=== PATIENT | male | born 1955 | race Caucasian/White ===

== ENCOUNTER → 2016-06-07 | Outpatient (CLI) | payer OTHER, BC ==
[~2016-06-07] MED LIST: ASCO10003 PO; ASPI81TA28 PO; ATOR-26 PO; CALC-354 PO; CLOP1TAB15 PO; CYAN100020 PO; CYAN1LOZ2 PO; CYM30 PO; DEXL60CA4 PO; FERR325T51 PO; FISHOIL PO; INSDGI SC; ISOS60TA25 PO; MELATAB2 PO; METO-157 PO; METO1TAB69 PO; MULT-1093 PO; MULT-845 PO; NITRSPR6 SL; NRV5 PO; NVLGI SC; NVLGI/PEN SC; PANT40TA PO; RANO1000 PO; TAMS0.4C38 PO; ZNTT/150 PO
[2016-06-08 06:02] LABS: ESTIMATED AVERAGE GLUCOSE 143 mg/dl; HA1C FLAG Normal (Normal)
== END | disposition home or self-care (01) ==
LOC: C.LABBFT 16:53
PROVIDERS: ATTEND Nurse Practitioner Family
DX: E11.21 Type 2 diabetes mellitus with diabetic nephropathy (principal); E78.00 Pure hypercholesterolemia, unspecified; I10 Essential (primary) hypertension

== ENCOUNTER → 2016-09-15 | Outpatient (CLI) | payer OTHER, BC ==
[~2016-09-15] MED LIST changes: +AMLO2.5T PO; +FERR1TAB13 PO; +METO100T44 PO; -METO1TAB69 PO; +NITR0.4S UT; +OMEG10007 PO
[2016-09-16 06:14] LABS: ESTIMATED AVERAGE GLUCOSE 171 mg/dl; HA1C FLAG Normal (Normal)
== END | disposition home or self-care (01) ==
LOC: C.LABBFT 13:39
PROVIDERS: ATTEND Internal Medicine
DX: Z11.59 Encounter for screening for other viral diseases (principal); E11.21 Type 2 diabetes mellitus with diabetic nephropathy

== ENCOUNTER → 2016-10-24 | Day surgery (SDC) | payer OTHER ==
[2016-10-16 12:40] VITALS: Ht 177.8 cm; Wt 86.4 kg
[~2016-10-24] VITALS: Ht 177.8 cm; Wt 86.4 kg
[~2016-10-24] MED LIST changes: -CYAN1LOZ2 PO; -CYM30 PO; +KETAMINE HCL INJ 50 MG/ML 10 ML VIAL ONE; +LIDOCAINE HCL 2% 2 ML VIAL (20MG/ML) ONE; -MELATAB2 PO; -MULT-845 PO; -NVLGI SC; +PROPOFOL IV EMULSION 10 MG/ML 20 ML VIAL IV ONE; +SODIUM CHLORIDE 0.9% 500ML 500 ML IV ONE; -ZNTT/150 PO
--- NOTE | 2016-10-24 11:28 | Endo History and Physical ---
History & Physical Date of Service: October 24, 2016. Chief Complaint: screening,Mendoza's Referring Physician: Dr. Jamar Avery History of Present Illness 60 yo CM who presents for EGD secondary to Mendoza's Esophagus and Screening colonoscopy. Past Medical History Diabetes, Arthritis, Male Genitourinary Prob., Gastrointestinal Disorder, Anxiety, Reflux, Blood Dyscrasias, High Cholesterol, Sleep Apnea, CABG, Heart Disease, CHF, Hypertension, Kidney Disease, Other, Depression, [place] Past Surgical History Hx Cardiac Surgery: Yes (CARDIAC CATH-NO STENTS, CABG-4 VESSELS) Hx Internal Defibrillator: No Hx Pacemaker: No Hx Abdominal Surgery: Yes (PARAESOPHAGEL HERNIA REPAIR; CHIKIS) Hx of Implantable Prosthesis: No Hx Post-Op Nausea and Vomiting: No Hx Cancer Surgery: No Hx Thoracic Surgery: No Hx Orthopedic: Yes (ORIF LEFT FEMURE (HARDWARE); RIGHT ANKLE FUSION) Hx Urinary Tract Surgery: No Family History Esophogeal CA Social History Smoking Status: Former Smoker Hx Substance Use: No Hx Alcohol Use: Yes (RARELY) Allergies Coded Allergies: Glipizide (Verified Allergy, Unknown, Heart Palpatations., 10/16/16) Nabumetone (Verified Allergy, Unknown, "had drug intereaction with this", 10/16/16) Simvastatin (Verified Adverse Reaction, Unknown, weakness, 10/16/16) Current Medications Reported Home Medications Medications Dose Route/Sig Max Daily Dose Days Date Category Dose Instructions Vitamin B12 (Cyanocobalamin) 1,000 Mcg Tab 1 Tab PO QAM 10/16/16 Reported Flomax (Tamsulosin Hcl) 0.4 Mg Cap 0.4 Mg PO QAM 10/16/16 Reported Ranexa (Ranolazine) 1,000 Mg Tab 1 Tab PO BID 30 10/16/16 Reported Protonix (Pantoprazole Sodium) 40 Mg Tab 40 Mg PO QAM 10/16/16 Reported Novolog Flexpen (Insulin Aspart) 100 Units/Ml Inj 10 Units SC WM 10/16/16 Reported TAKES 5 UNITS WITH SNACKS Centrum Silver 50+Men (Multiple Vitamins W/ Minerals) 1 Tab Tab 1 Tab PO QAM 10/16/16 Reported Amlodipine Besylate 5 Mg Tab 2.5 Mg PO HS 30 09/13/15 Rx Iron Supplement (Ferrous Sulfate) 325 Mg Tab 1 Tab PO TID 30 09/05/15 Reported Vitamin C (Ascorbic Acid) 1,000 Mg Tab 1 Dose PO BID 09/05/15 Reported 1 TAB IN AM 2 TABS IN PM Caltrate 600+D (Calcium Carbonate-Cholecalcife) 1 Tab Tab 1 Tab PO QAM 02/25/13 Reported Imdur Ext Rel (Isosorbide Mononitrate) 60 Mg Ertab 120 Mg PO QAM 02/25/13 Reported Nitrolingual 60 [place] (Nitroglycerin) 1 [place] 1 [place] SL PRN 02/25/13 Reported Lantus (Insulin Glargine) Vial 1 Dose SC BID 01/14/13 Reported 15 UNITS IN AM 20 UNITS IN PM Aspirin Ec (Aspirin) 81 Mg Tab 81 Mg PO QAM 01/14/13 Reported Plavix (Clopidogrel Bisulfate) 75 Mg Tab 75 Mg PO QAM 01/14/13 Reported Reglan (Metoclopramide HCl) 10 Mg Tab 10 Mg PO BID 09/19/12 Reported [place]-3 (Fish Oil) Oil 1 Tab PO BID 07/03/11 Reported 1000 MG CAPS. Toprol-Xl (Metoprolol Succinate) 100 Mg Tabcr 100 Mg PO BID 07/03/11 Reported Lipitor (Atorvastatin Calcium) 80 Mg Tab 80 Mg PO QPM 01/27/09 Reported Vital Signs Weight (Kilograms): 86.36 Height (Feet): 5 Height (Inches): 10 Date Time Temp Pulse Resp B/P Pulse Ox O2 Delivery O2 Flow Rate FiO2 10/24/16 11:20 36.7 70 18 158/83 99 Room Air Physical Exam General Appearance: WD/WN, no apparent distress Respiratory/Chest: Auscultation: breath sounds normal Cardiovascular: Heart Auscultation: RRR Abdomen: Bowel Sounds: normal Inspection & Palpation: soft, non-distended, no tenderness, guarding & rebound Assessment and Plan Assessment: 60 yo CM who presents for EGD secondary to Mendoza's Esophagus and Screening colonoscopy. Plan: Proceed with EGD and colonoscopy.
--- NOTE | 2016-10-24 12:40 | GI REPORT ---
Procedure Date: 10/24/2016 11:32 AM Procedure: Upper GI endoscopy Indications: Follow-up of Mendoza's esophagus Medicines: Monitored Anesthesia Care Complications: No immediate complications. Estimated Blood Loss: Estimated blood loss: none. Procedure: Pre-Anesthesia Assessment: - Prior to the procedure, a History and Physical was performed, and patient medications and allergies were reviewed. The patient's tolerance of previous anesthesia was also reviewed. The risks and benefits of the procedure and the sedation options and risks were discussed with the patient. All questions were answered, and informed consent was obtained. Prior Anticoagulants: The patient last took aspirin 1 day and Plavix (clopidogrel) 8 days prior to the procedure. ASA Grade Assessment: III - A patient with severe systemic disease. After reviewing the risks and benefits, the patient was deemed in satisfactory condition to undergo the procedure. After obtaining informed consent, the endoscope was passed under direct vision. Throughout the procedure, the patient's blood pressure, pulse, and oxygen saturations were monitored continuously. The scope was introduced through the mouth, and advanced to the second part of duodenum. The upper GI endoscopy was accomplished without difficulty. The patient tolerated the procedure well. Findings: There were esophageal mucosal changes consistent with short-segment Mendoza's esophagus present at the gastroesophageal junction. The maximum longitudinal extent of these mucosal changes was 1 cm in length. Mucosa was biopsied with a cold forceps for histology. One specimen bottle was sent to pathology. A small hiatus hernia was present. The examined duodenum was normal. Impression: - Esophageal mucosal changes consistent with short-segment Mendoza's esophagus. Biopsied. - Small hiatus hernia. - Normal examined duodenum. Recommendation: - Resume previous diet. - Continue present medications. - Await pathology results. - Return to GI office as previously scheduled. Isidoro Cooper DO 10/24/2016 12:39:51 PM This report has been signed electronically. Note Initiated On: 10/24/2016 11:32 AM I attest to the content of the Intraoperative Record and orders documented therein, exceptions below
--- NOTE | 2016-10-24 12:44 | Discharge Instructions ---
Endoscopy Patient Instructions Date / Procedure(s) Performed October 24, 2016. Colonoscopy, EGD Allergy Information Coded Allergies: Glipizide (Verified Allergy, Unknown, Heart Palpatations., 10/16/16) Nabumetone (Verified Allergy, Unknown, "had drug intereaction with this", 10/16/16) Simvastatin (Verified Adverse Reaction, Unknown, weakness, 10/16/16) Discharge Date / Findings October 24, 2016. EGD: Mendoza's Esophagus s/p biopsies and hiatal hernia Colonoscopy: Poor bowel prep Medication Instructions Stopped Medication(s): stopped Plavix week ago,took ASA 10/23 at 1800 OK to resume all medications today as prescribed Reported Home Medications Medications Dose Route/Sig Max Daily Dose Days Date Category Dose Instructions Vitamin B12 (Cyanocobalamin) 1,000 Mcg Tab 1 Tab PO QAM 10/16/16 Reported Flomax (Tamsulosin Hcl) 0.4 Mg Cap 0.4 Mg PO QAM 10/16/16 Reported Ranexa (Ranolazine) 1,000 Mg Tab 1 Tab PO BID 30 10/16/16 Reported Protonix (Pantoprazole Sodium) 40 Mg Tab 40 Mg PO QAM 10/16/16 Reported Novolog Flexpen (Insulin Aspart) 100 Units/Ml Inj 10 Units SC WM 10/16/16 Reported TAKES 5 UNITS WITH SNACKS Centrum Silver 50+Men (Multiple Vitamins W/ Minerals) 1 Tab Tab 1 Tab PO QAM 10/16/16 Reported Amlodipine Besylate 5 Mg Tab 2.5 Mg PO HS 30 09/13/15 Rx Iron Supplement (Ferrous Sulfate) 325 Mg Tab 1 Tab PO TID 30 09/05/15 Reported Vitamin C (Ascorbic Acid) 1,000 Mg Tab 1 Dose PO BID 09/05/15 Reported 1 TAB IN AM 2 TABS IN PM Caltrate 600+D (Calcium Carbonate-Cholecalcife) 1 Tab Tab 1 Tab PO QAM 02/25/13 Reported Imdur Ext Rel (Isosorbide Mononitrate) 60 Mg Ertab 120 Mg PO QAM 02/25/13 Reported Nitrolingual 60 [place] (Nitroglycerin) 1 [place] 1 [place] SL PRN 02/25/13 Reported Lantus (Insulin Glargine) Vial 1 Dose SC BID 01/14/13 Reported 15 UNITS IN AM 20 UNITS IN PM Aspirin Ec (Aspirin) 81 Mg Tab 81 Mg PO QAM 01/14/13 Reported Plavix (Clopidogrel Bisulfate) 75 Mg Tab 75 Mg PO QAM 01/14/13 Reported Reglan (Metoclopramide HCl) 10 Mg Tab 10 Mg PO BID 09/19/12 Reported [place]-3 (Fish Oil) Oil 1 Tab PO BID 07/03/11 Reported 1000 MG CAPS. Toprol-Xl (Metoprolol Succinate) 100 Mg Tabcr 100 Mg PO BID 07/03/11 Reported Lipitor (Atorvastatin Calcium) 80 Mg Tab 80 Mg PO QPM 01/27/09 Reported Provider Instructions Activity Restrictions - No exercising or heavy lifting for 24 hours. - Do not drink alcohol the day of the procedure. - Do not drive a car or operate machinery until the day after the procedure. - Do not make any important decisions or sign important papers in 24 hours after the procedure. Following Day: - Return to full activity which may include returning to work/school. Diet Start your diet with liquids and light foods (jello, soup, juice, toast). Then eat your usual diet if not nauseated. Treatment For Common After Affects For mild abdominal pain, bloating, or excessive gas: - Rest - Eat lightly - Lie on right side Follow-Up Information Follow-up with Dr. Jamar Avery as scheduled Anesthesia Information What You Should Know You have had a procedure that required some medicine to reduce anxiety and discomfort. This treatment is called moderate sedation. After receiving the treatment, you may be sleepy, but you will be able to breathe on your own. The effects of the treatment may last for several hours. Follow these instructions along with Activity/Diet recommendations noted above: * Do NOT do anything where dizziness or clumsiness would be dangerous. * Rest quietly at home today, then you can be up and about tomorrow. * Have a responsible person stay with you the rest of today. * You may have had an I.V. today. If so, you may take the dressing off later today. Recommendations Call your doctor if: * Trouble breathing * Continuous vomiting for more than 24 hours * Temperature above 101 degrees * Severe abdominal pain or bloating * Pain not relieved by pain medicine ordered * There is increased drainage or redness from any incision * A large amount of rectal bleeding greater than 2-3 tablespoons. (If you had a polyp/s removed or have hemorrhoids, a small amount of blood - from the rectum is to be expected.) * You have any unanswered questions or concerns. IN THE EVENT OF A SERIOUS EMERGENCY, GO TO THE NEAREST EMERGENCY ROOM Your discharge instructions were prepared by provider Isidoro Cooper. Patient Instructions Signature Page Alok Bender Patient (or Guardian) Signature/Date: I have read and understand the instructions given to me by my caregivers. Caregiver/RN/Doctor Signature/Date: The above-named patient and/or guardian has received patient instructions on this date. + Original Patient Signature Page (only) stays with chart. Please make copy for patient.
--- NOTE | 2016-10-24 12:44 | GI REPORT ---
Procedure Date: 10/24/2016 11:59 AM Procedure: Colonoscopy Indications: Screening for colorectal malignant neoplasm Medicines: Monitored Anesthesia Care Complications: No immediate complications. Estimated Blood Loss: Estimated blood loss: none. Procedure: Pre-Anesthesia Assessment: - Prior to the procedure, a History and Physical was performed, and patient medications and allergies were reviewed. The patient's tolerance of previous anesthesia was also reviewed. The risks and benefits of the procedure and the sedation options and risks were discussed with the patient. All questions were answered, and informed consent was obtained. Prior Anticoagulants: The patient last took aspirin 1 day and Plavix (clopidogrel) 8 days prior to the procedure. ASA Grade Assessment: III - A patient with severe systemic disease. After reviewing the risks and benefits, the patient was deemed in satisfactory condition to undergo the procedure. After I obtained informed consent, the scope was passed under direct vision. Throughout the procedure, the patient's blood pressure, pulse, and oxygen saturations were monitored continuously. The scope was introduced through the anus with the intention of advancing to the ileum. The scope was advanced to the ascending colon before the procedure was aborted. Medications were given. The colonoscopy was technically difficult and complex due to inadequate bowel prep. The patient tolerated the procedure well. The quality of the bowel preparation was inadequate. No anatomical landmarks were photographed. Findings: Non-bleeding internal hemorrhoids were found during retroflexion. The hemorrhoids were small. Extensive amounts of semi-solid stool was found in the entire colon, precluding visualization. Impression: - Preparation of the colon was inadequate. - Non-bleeding internal hemorrhoids. - Stool in the entire examined colon. - No specimens collected. Recommendation: - Resume previous diet. - Continue present medications. - Repeat colonoscopy in 6 months because the bowel preparation was poor. - Return to primary care physician as previously scheduled. Isidoro Cooper DO 10/24/2016 12:43:30 PM This report has been signed electronically. Note Initiated On: 10/24/2016 11:59 AM I attest to the content of the Intraoperative Record and orders documented therein, exceptions below
--- NOTE | 2016-10-24 12:49 | Anesthesiology Progress Note ---
Anesthesia Post Op Note Date & Time October 24, 2016 at 12:48 Vital Signs Pain Intensity: 0 Vital Signs Past 12 Hours Date Time Temp Pulse Resp B/P Pulse Ox O2 Delivery O2 Flow Rate FiO2 10/24/16 12:34 66 18 130/69 98 Room Air 10/24/16 12:20 36.7 74 18 127/63 97 Room Air 10/24/16 11:20 36.7 70 18 158/83 99 Room Air Notes Mental Status: alert / awake / arousable, participated in evaluation Pt Amnestic to Procedure: Yes Nausea / Vomiting: adequately controlled Pain: adequately controlled Airway Patency, RR, SpO2: stable & adequate BP & HR: stable & adequate Hydration State: stable & adequate Anesthetic Complications: no major complications apparent
[2016-10-24 12:50] VITALS: BP 140/68; PULSE 66; O2SAT 98
== END | disposition home or self-care (01) ==
LOC: C.GI 10:44
PROVIDERS: ATTEND Internal Medicine
DX: K22.70 Barrett's esophagus without dysplasia (principal); K44.9 Diaphragmatic hernia without obstruction or gangrene; Z12.11 Encounter for screening for malignant neoplasm of colon; K64.8 Other hemorrhoids; E11.9 Type 2 diabetes mellitus without complications; M19.90 Unspecified osteoarthritis, unspecified site; K21.9 Gastro-esophageal reflux disease without esophagitis; E78.00 Pure hypercholesterolemia, unspecified; Z98.61 Coronary angioplasty status; I25.2 Old myocardial infarction; Z79.84 Long term (current) use of oral hypoglycemic drugs; Z79.82 Long term (current) use of aspirin; Z90.49 Acquired absence of other specified parts of digestive tract; Z98.1 Arthrodesis status; G47.33 Obstructive sleep apnea (adult) (pediatric); E78.5 Hyperlipidemia, unspecified; I73.9 Peripheral vascular disease, unspecified; N18.3 Chronic kidney disease, stage 3 (moderate); I12.9 Hypertensive chronic kidney disease with stage 1 through stage 4 chronic kidney disease, or unspecified chronic kidney disease; Z87.891 Personal history of nicotine dependence; E66.9 Obesity, unspecified
CPT/HCPCS: 43239; G0121

== ENCOUNTER → 2016-10-25 | Outpatient (CLI) | payer OTHER ==
[~2016-10-25] MED LIST changes: -DEXL60CA4 PO; -KETAMINE HCL INJ 50 MG/ML 10 ML VIAL ONE; -LIDOCAINE HCL 2% 2 ML VIAL (20MG/ML) ONE; -PROPOFOL IV EMULSION 10 MG/ML 20 ML VIAL IV ONE; -SODIUM CHLORIDE 0.9% 500ML 500 ML IV ONE
[2016-10-25 12:22] LABS: HEMATOCRIT 36.1 % (42-52); MEAN CORPUSCULAR HEMOGLOBIN 28.9 pg (25-34); MEAN CORPUSCULAR HGB CONC 33.2 g/dl (32-36); MEAN PLATELET VOLUME 9.1 fL (7.4-10.4); PLATELET COUNT 151 K/uL (130-400); RED BLOOD COUNT 4.15 M/uL (4.7-6.1); WHITE BLOOD COUNT 6.75 K/uL (4.8-10.8)
[2016-10-25 12:29] LABS: ALT/SGPT 32 U/L (12-78); BLOOD UREA NITROGEN 24 mg/dl (7-18); BUN/CREATININE RATIO 12.4 (10-20); CARBON DIOXIDE 28 mmol/L (21-32); CHLORIDE 104 mmol/L (98-107); GLUCOSE 182 mg/dl (70-99); POTASSIUM 3.7 mmol/L (3.5-5.1); SODIUM 142 mmol/L (136-145)
[2016-10-25 12:31] LABS: ALB/GLOB RATIO 0.9 (0.9-2); ALKALINE PHOSPHATASE 30 U/L (45-117); AST/SGOT 19 U/L (15-37)
[2016-10-25 12:39] LABS: CALCIUM 9.1 mg/dl (8.5-10.1)
== END | disposition home or self-care (01) ==
LOC: C.LABBFT 09:21
PROVIDERS: ATTEND Internal Medicine
DX: N18.3 Chronic kidney disease, stage 3 (moderate) (principal)

== ENCOUNTER → 2016-11-09 | Outpatient (CLI) | payer OTHER | END | disposition home or self-care (01) | LOC: C.PATHSPEC 16:07 | PROVIDERS: ATTEND Dermatology | DX: L82.1 Other seborrheic keratosis (principal); D22.5 Melanocytic nevi of trunk ==

== ENCOUNTER → 2017-04-16 | Day surgery (SDC) | payer OTHER ==
[2017-03-20 15:11] VITALS: Ht 177.8 cm; Wt 95.5 kg
[~2017-04-16] VITALS: Ht 177.8 cm; Wt 95.5 kg
[~2017-04-16] MED LIST changes: +ATROPINE SULFATE 0.1 MG/ML 5ML SYR IV PRN; +EpHEDrine SULFATE INJ 50 MG/ML AMP IV PRN; -FERR325T51 PO; -FISHOIL PO; -NITRSPR6 SL; -NRV5 PO; +PHENYLEPHRINE 100MCG/ML 5ML SYR ONE; +PROPOFOL IV EMULSION 10 MG/ML 20 ML VIAL IV ONE; +SODIUM CHLORIDE 0.9% 500ML 500 ML IV ONE
--- NOTE | 2017-04-16 12:58 | Endo History and Physical ---
History & Physical Date of Service: Apr 16, 2017. Chief Complaint: Screening Referring Physician: Dr. Avery History of Present Illness 61 yo CM who presents for screening colonoscopy. Past Medical History Diabetes, Arthritis, Male Genitourinary Prob., Gastrointestinal Disorder, Anxiety, Reflux, Blood Dyscrasias, High Cholesterol, Sleep Apnea, CABG, Heart Disease, CHF, Hypertension, Kidney Disease, Other, Depression, [place] Past Surgical History Hx Cardiac Surgery: Yes (CARDIAC CATH-NO STENTS, CABG-4 VESSELS) Hx Internal Defibrillator: No Hx Pacemaker: No Hx Abdominal Surgery: Yes (PARAESOPHAGEL HERNIA REPAIR; CHIKIS) Hx of Implantable Prosthesis: No Hx Post-Op Nausea and Vomiting: No Hx Cancer Surgery: No Hx Thoracic Surgery: No Hx Orthopedic: Yes (ORIF LEFT FEMURE (HARDWARE); RIGHT ANKLE FUSION) Hx Urinary Tract Surgery: No Family History Esophogeal [place] Social History Smoking Status: Former Smoker Hx Substance Use: No Hx Alcohol Use: Yes (RARELY) Allergies Coded Allergies: Glipizide (Verified Allergy, Unknown, Heart Palpatations., 03/20/17) Nabumetone (Verified Allergy, Unknown, "had drug intereaction with this", 03/20/17) Simvastatin (Verified Adverse Reaction, Unknown, weakness, 03/20/17) Current Medications Reported Home Medications Medications Dose Route/Sig Max Daily Dose Days Date Category Dose Instructions [place]-3 (Fish Oil) 1 Ea Cap 1 Cap PO BID 03/20/17 Reported Nitrostat (Nitroglycerin) 0.4 Mg Sub 0.4 Mg [place] UD PRN 03/20/17 Reported Lantus (Insulin Glargine) 100 Unit/Ml Inj 20 Units SC BID 03/20/17 Reported Kp Ferrous Sulfate (Ferrous Sulfate) 325 Mg Tab 1 Tab PO UD 03/20/17 Reported 1 TAB QAM 2 TABS QPM Norvasc (Amlodipine Besylate) 2.5 Mg Tab 2.5 Mg PO HS 03/20/17 Reported Vitamin B12 (Cyanocobalamin) 1,000 Mcg Tab 1 Tab PO QAM 10/16/16 Reported Flomax (Tamsulosin Hcl) 0.4 Mg Cap 0.4 Mg PO QAM 10/16/16 Reported Ranexa (Ranolazine) 1,000 Mg Tab 1 Tab PO BID 10/16/16 Reported Protonix (Pantoprazole Sodium) 40 Mg Tab 40 Mg PO QAM 10/16/16 Reported Novolog Flexpen (Insulin Aspart) 100 Units/Ml Inj 10 Units SC WM 10/16/16 Reported TAKES 5 UNITS WITH SNACKS Centrum Silver 50+Men (Multiple Vitamins W/ Minerals) 1 Tab Tab 1 Tab PO QAM 10/16/16 Reported Vitamin C (Ascorbic Acid) 1,000 Mg Tab 1 Dose PO BID 09/05/15 Reported 1 TAB IN AM 2 TABS IN PM Caltrate 600+D (Calcium Carbonate-Cholecalcife) 1 Tab Tab 1 Tab PO QAM 02/25/13 Reported Imdur Ext Rel (Isosorbide Mononitrate) 60 Mg Ertab 120 Mg PO QAM 02/25/13 Reported Aspirin Ec (Aspirin) 81 Mg Tab 81 Mg PO QAM 01/14/13 Reported Plavix (Clopidogrel Bisulfate) 75 Mg Tab 75 Mg PO QAM 01/14/13 Reported Reglan (Metoclopramide HCl) 10 Mg Tab 10 Mg PO BID 09/19/12 Reported Toprol-Xl (Metoprolol Succinate) 100 Mg Tabcr 100 Mg PO BID 07/03/11 Reported Lipitor (Atorvastatin Calcium) 80 Mg Tab 80 Mg PO HS 01/27/09 Reported Vital Signs Weight (Kilograms): 95.45 Height (Feet): 5 Height (Inches): 10 Physical Exam General Appearance: WD/WN, no apparent distress Respiratory/Chest: Auscultation: breath sounds normal Cardiovascular: Heart Auscultation: RRR Abdomen: Bowel Sounds: normal Inspection & Palpation: soft, non-distended, no tenderness, guarding & rebound Assessment and Plan Assessment: 61 yo CM who presents for screening colonoscopy. Plan: Proceed with colonoscopy.
--- NOTE | 2017-04-16 13:54 | Discharge Instructions ---
Endoscopy Patient Instructions Date / Procedure(s) Performed Apr 16, 2017. Colonoscopy Allergy Information Coded Allergies: Glipizide (Verified Allergy, Unknown, Heart Palpatations., 03/20/17) Nabumetone (Verified Allergy, Unknown, "had drug intereaction with this", 03/20/17) Simvastatin (Verified Adverse Reaction, Unknown, weakness, 03/20/17) Discharge Date / Findings Apr 16, 2017. Colon polyps Internal hemorrhoids Medication Instructions Stopped Medication(s): last ASA and Plavix taken yesterday 04/15 at 1800 OK to resume all medications today as prescribed Reported Home Medications Medications Dose Route/Sig Max Daily Dose Days Date Category Dose Instructions [place]-3 (Fish Oil) 1 Ea Cap 1 Cap PO BID 03/20/17 Reported Nitrostat (Nitroglycerin) 0.4 Mg Sub 0.4 Mg [place] UD PRN 03/20/17 Reported Lantus (Insulin Glargine) 100 Unit/Ml Inj 20 Units SC BID 03/20/17 Reported Kp Ferrous Sulfate (Ferrous Sulfate) 325 Mg Tab 1 Tab PO UD 03/20/17 Reported 1 TAB QAM 2 TABS QPM Norvasc (Amlodipine Besylate) 2.5 Mg Tab 2.5 Mg PO HS 03/20/17 Reported Vitamin B12 (Cyanocobalamin) 1,000 Mcg Tab 1 Tab PO QAM 10/16/16 Reported Flomax (Tamsulosin Hcl) 0.4 Mg Cap 0.4 Mg PO QAM 10/16/16 Reported [place] (Ranolazine) 1,000 Mg Tab 1 Tab PO BID 10/16/16 Reported Protonix (Pantoprazole Sodium) 40 Mg Tab 40 Mg PO QAM 10/16/16 Reported Novolog Flexpen (Insulin Aspart) 100 Units/Ml Inj 10 Units SC WM 10/16/16 Reported TAKES 5 UNITS WITH SNACKS Centrum Silver 50+Men (Multiple Vitamins W/ Minerals) 1 Tab Tab 1 Tab PO QAM 10/16/16 Reported Vitamin C (Ascorbic Acid) 1,000 Mg Tab 1 Dose PO BID 09/05/15 Reported 1 TAB IN AM 2 TABS IN PM Caltrate 600+D (Calcium Carbonate-Cholecalcife) 1 Tab Tab 1 Tab PO QAM 02/25/13 Reported Imdur Ext Rel (Isosorbide Mononitrate) 60 Mg Ertab 120 Mg PO QAM 02/25/13 Reported Aspirin Ec (Aspirin) 81 Mg Tab 81 Mg PO QAM 01/14/13 Reported Plavix (Clopidogrel Bisulfate) 75 Mg Tab 75 Mg PO QAM 01/14/13 Reported Reglan (Metoclopramide HCl) 10 Mg Tab 10 Mg PO BID 09/19/12 Reported Toprol-Xl (Metoprolol Succinate) 100 Mg Tabcr 100 Mg PO BID 07/03/11 Reported Lipitor (Atorvastatin Calcium) 80 Mg Tab 80 Mg PO HS 01/27/09 Reported Provider Instructions Activity Restrictions - No exercising or heavy lifting for 24 hours. - Do not drink alcohol the day of the procedure. - Do not drive a car or operate machinery until the day after the procedure. - Do not make any important decisions or sign important papers in 24 hours after the procedure. Following Day: - Return to full activity which may include returning to work/school. Diet Start your diet with liquids and light foods (jello, soup, juice, toast). Then eat your usual diet if not nauseated. Treatment For Common After Affects For mild abdominal pain, bloating, or excessive gas: - Rest - Eat lightly - Lie on right side Follow-Up Information Follow-up with Dr. Jamar Avery as scheduled Anesthesia Information What You Should Know You have had a procedure that required some medicine to reduce anxiety and discomfort. This treatment is called moderate sedation. After receiving the treatment, you may be sleepy, but you will be able to breathe on your own. The effects of the treatment may last for several hours. Follow these instructions along with Activity/Diet recommendations noted above: * Do NOT do anything where dizziness or clumsiness would be dangerous. * Rest quietly at home today, then you can be up and about tomorrow. * Have a responsible person stay with you the rest of today. * You may have had an I.V. today. If so, you may take the dressing off later today. Recommendations Call your doctor if: * Trouble breathing * Continuous vomiting for more than 24 hours * Temperature above 101 degrees * Severe abdominal pain or bloating * Pain not relieved by pain medicine ordered * There is increased drainage or redness from any incision * A large amount of rectal bleeding greater than 2-3 tablespoons. (If you had a polyp/s removed or have hemorrhoids, a small amount of blood - from the rectum is to be expected.) * You have any unanswered questions or concerns. IN THE EVENT OF A SERIOUS EMERGENCY, GO TO THE NEAREST EMERGENCY ROOM Your discharge instructions were prepared by provider Isidoro Cooper. Patient Instructions Signature Page Alok Bender Patient (or Guardian) Signature/Date: I have read and understand the instructions given to me by my caregivers. Caregiver/RN/Doctor Signature/Date: The above-named patient and/or guardian has received patient instructions on this date. + Original Patient Signature Page (only) stays with chart. Please make copy for patient.
--- NOTE | 2017-04-16 13:57 | Anesthesiology Progress Note ---
Anesthesia Post Op Note Date & Time Apr 16, 2017 at 13:56 Vital Signs Pain Intensity: 0 Vital Signs Past 12 Hours Date Time Temp Pulse Resp B/P (MAP) Pulse Ox O2 Delivery O2 Flow Rate FiO2 04/16/17 13:48 61 16 124/59 (80) 100 Room Air 04/16/17 13:10 36.6 60 16 145/64 (91) 99 Room Air Notes Mental Status: alert / awake / arousable, participated in evaluation Pt Amnestic to Procedure: Yes Nausea / Vomiting: adequately controlled Pain: adequately controlled Airway Patency, RR, SpO2: stable & adequate BP & HR: stable & adequate Hydration State: stable & adequate Anesthetic Complications: no major complications apparent
--- NOTE | 2017-04-16 13:59 | GI REPORT ---
Procedure Date: 04/16/2017 1:07 PM Procedure: Colonoscopy Indications: High risk colon cancer surveillance: Personal history of colonic polyps Medicines: Monitored Anesthesia Care Complications: No immediate complications. Estimated Blood Loss: Estimated blood loss: none. Procedure: Pre-Anesthesia Assessment: - Prior to the procedure, a History and Physical was performed, and patient medications and allergies were reviewed. The patient's tolerance of previous anesthesia was also reviewed. The risks and benefits of the procedure and the sedation options and risks were discussed with the patient. All questions were answered, and informed consent was obtained. Prior Anticoagulants: The patient last took aspirin 1 day and Plavix (clopidogrel) 1 day prior to the procedure. ASA Grade Assessment: IV - A patient with severe systemic disease that is a constant threat to life. After reviewing the risks and benefits, the patient was deemed in satisfactory condition to undergo the procedure. After I obtained informed consent, the scope was passed under direct vision. Throughout the procedure, the patient's blood pressure, pulse, and oxygen saturations were monitored continuously. The scope was introduced through the anus and advanced to the terminal ileum. The colonoscopy was performed without difficulty. The patient tolerated the procedure well. The quality of the bowel preparation was fair. The terminal ileum, ileocecal valve, appendiceal orifice, and rectum were photographed. Findings: The perianal and digital rectal examinations were normal. Two sessile polyps were found in the sigmoid colon. The polyps were 4 to 6 mm in size. These polyps were removed with a hot snare. Resection and retrieval were complete. Non-bleeding internal hemorrhoids were found during retroflexion. The hemorrhoids were small. Impression: - Two 4 to 6 mm polyps in the sigmoid colon, removed with a hot snare. Resected and retrieved. - Non-bleeding internal hemorrhoids. Recommendation: - Resume previous diet. - Continue present medications. - Await pathology results. - Repeat colonoscopy for surveillance based on pathology results. - Return to primary care physician as previously scheduled. Isidoro Cooper, 04/16/2017 1:59:02 PM This report has been signed electronically. Note Initiated On: 04/16/2017 1:07 PM I attest to the content of the Intraoperative Record and orders documented therein, exceptions below
[2017-04-16 14:20] VITALS: BP 151/74; PULSE 60; O2SAT 98
== END | disposition home or self-care (01) ==
LOC: C.GI 12:36
PROVIDERS: ATTEND Internal Medicine
DX: Z12.11 Encounter for screening for malignant neoplasm of colon (principal); K63.5 Polyp of colon; K64.8 Other hemorrhoids; E11.9 Type 2 diabetes mellitus without complications; K21.9 Gastro-esophageal reflux disease without esophagitis; Z98.61 Coronary angioplasty status; N18.3 Chronic kidney disease, stage 3 (moderate); I12.9 Hypertensive chronic kidney disease with stage 1 through stage 4 chronic kidney disease, or unspecified chronic kidney disease; G47.30 Sleep apnea, unspecified

== ENCOUNTER → 2017-04-27 | Outpatient (CLI) | payer OTHER ==
[~2017-04-27] MED LIST changes: -ATROPINE SULFATE 0.1 MG/ML 5ML SYR IV PRN; -EpHEDrine SULFATE INJ 50 MG/ML AMP IV PRN; -PHENYLEPHRINE 100MCG/ML 5ML SYR ONE; -PROPOFOL IV EMULSION 10 MG/ML 20 ML VIAL IV ONE; -SODIUM CHLORIDE 0.9% 500ML 500 ML IV ONE
[2017-04-27 17:08] LABS: BASO % 0.4 %; BASO ABS # 0.03 K/uL (0-0.2); COMPLETE YES; EOS % 1.5 %; IG% 1.4 %; LYMPH % 22.4 %; LYMPH ABS # 1.78 K/uL (1.2-3.4); MEAN CORPUSCULAR HGB CONC 33.7 g/dl (32-36); MEAN PLATELET VOLUME 9.7 fL (7.4-10.4); MONO % 8.9 %; NEUT % 65.4 %; PLATELET COUNT 137 K/uL (130-400); RED BLOOD COUNT 4.27 M/uL (4.7-6.1); WHITE BLOOD COUNT 7.94 K/uL (4.8-10.8)
[2017-04-27 17:23] LABS: ALT/SGPT 48 U/L (12-78); AST/SGOT 19 U/L (15-37); BLOOD UREA NITROGEN 39 mg/dl (7-18); BUN/CREATININE RATIO 17.6 (10-20); CARBON DIOXIDE 23 mmol/L (21-32); CHLORIDE 101 mmol/L (98-107); GLUCOSE 237 mg/dl (70-99); POTASSIUM 3.7 mmol/L (3.5-5.1); SODIUM 136 mmol/L (136-145)
[2017-04-27 17:29] LABS: ALKALINE PHOSPHATASE 26 U/L (45-117); CHOLESTEROL 72 mg/dl (0-200); CHOLESTEROL/HDL RATIO 1.8; HDL CHOLESTEROL 40 mg/dl; LDL CHOLESTEROL CALCULATED 2 mg/dl; PROSTATE SPECIFIC ANTIGEN 0.468 ng/ml (0.000-4.000); TRIGLYCERIDES 150 mg/dl (0-150); VERY LOW DENSITY LIPOPROT CALC 30 mg/dl
[2017-04-28 06:53] LABS: ESTIMATED AVERAGE GLUCOSE 160 mg/dl; HA1C FLAG Normal (Normal)
== END | disposition home or self-care (01) ==
LOC: C.LABBFT 13:28
PROVIDERS: ATTEND Nurse Practitioner Family
DX: E11.21 Type 2 diabetes mellitus with diabetic nephropathy (principal); I25.10 Atherosclerotic heart disease of native coronary artery without angina pectoris; N18.3 Chronic kidney disease, stage 3 (moderate); Z12.5 Encounter for screening for malignant neoplasm of prostate

== ENCOUNTER → 2018-01-17 | Outpatient (CLI) | payer OTHER ==
--- NOTE | 2018-01-17 09:23 | DIAGNOSTIC IMAGING REPORT ---
RENAL ULTRASOUND CLINICAL HISTORY: Hypercholesterolemia. COMPARISON STUDY: Renal ultrasound February 21, 2013. TECHNIQUE: Sonography of the kidneys and the urinary bladder was performed. FINDINGS: There is no hydronephrosis. The right kidney measures 10.2 cm and the left measures 10.6 cm. No renal mass or calculus is identified by sonography. There is moderate renal cortical thinning. Both ureteral jets were identified. Evaluation is mildly compromised due to suboptimal penetration. IMPRESSION: 1. No hydronephrosis. 2. Moderate bilateral renal cortical thinning. Electronically signed by: Efren Moran M.D. 01/17/2018 9:21 AM Dictated Date/Time: 01/17/2018 9:20 AM
--- NOTE | 2018-01-17 09:48 | DIAGNOSTIC IMAGING REPORT ---
DUPLEX RENAL ARTERY HISTORY: 62 years-old Male E78.00 [id number] screening study for renal arterial stenosis COMPARISON: Renal ultrasound of same day TECHNIQUE: Multiple real-time sonographic images of the bilateral renal vascular structures were obtained assessing grayscale appearance, color and spectral flow FINDINGS: The right renal artery peak systolic velocity measures up to 91 cm/s. Resistive index measures up to 0.80. Patent renal vein. Peak systolic velocity within the aorta measures up to 105 cm/s with normal plug flow. Left renal artery peak systolic velocities measuring up to 81 cm/s with resistive index of 0.78. Patent left renal vein. IMPRESSION: No sonographic evidence of renal arterial stenosis. The above report was generated using voice recognition software. It may contain grammatical, syntax or spelling errors. Electronically signed by: Daniel Dos Santos M.D. 01/17/2018 9:47 AM Dictated Date/Time: 01/17/2018 9:44 AM
== END | disposition home or self-care (01) ==
LOC: C.ULTR 08:27
PROVIDERS: ATTEND Internal Medicine
DX: E78.00 Pure hypercholesterolemia, unspecified (principal); N28.89 Other specified disorders of kidney and ureter

== ENCOUNTER 2019-06-03 15:04 | Inpatient (IN) ==
[2019-06-03 17:32] LABS: Basophils # (auto) 0.01 K/uL (0-0.2); Basophils % (auto) 0.1 %; Eosinophils # (auto) 0.04 K/uL (0-0.5); Eosinophils % (auto) 0.5 %; Hematocrit (blood only) 35.7 % (42-52); Hemoglobin 12.3 g/dL (14.0-18.0); Immature Granulocytes # (auto) 0.12 K/uL (0.00-0.02); Immature Granulocytes % (auto) 1.5 %; Lymphocytes # (auto) 1.32 K/uL (1.2-3.4); Mean Corpuscular Hgb Conc 34.5 g/dL (32-36); Mean Corpuscular Volume 89.9 fL (80-100); Monocytes # (auto) 0.96 K/uL (0.11-0.59); Monocytes % (auto) 11.6 %; Neutrophils % (auto) 70.3 %; Platelet Count 176 K/uL (130-400); RDW Coefficient of Variation 12.5 % (11.5-14.5); RDW Standard Deviation 40.4 fL (36.4-46.3); Red Blood Count 3.97 M/uL (4.7-6.1); White Blood Count 8.25 K/uL (4.8-10.8)
[2019-06-03] MEDS ORDERED: NITROGLYCERIN SL 0.4 MG/TAB TAB SL PRN ×2 (17:38→22:51)
[2019-06-03] MEDS ORDERED: SODIUM CHLORIDE 0.9% 250 ML IV PRN (17:43)
[2019-06-03 17:46] LABS: Partial Thromboplastin Ratio 0.7; Prothrombin Time 10.7 Seconds (9.0-12.0)
[2019-06-03 17:50] LABS: Albumin Level 2.9 gm/dl (3.4-5.0); BUN Creatinine Ratio 11.2 (10-20); Calcium 9.4 mg/dl (8.5-10.1); Creatinine Clr Calc Pharmacy 44.2 ml/min; Est GFR (African American) 41.7; Potassium 3.6 mmol/L (3.5-5.1)
[2019-06-03 17:52] LABS: Albumin Globulin Ratio 0.7 (0.9-2); Bilirubin,Total 1.4 mg/dl (0.2-1); Globulin 4.2 gm/dl (2.5-4.0); Total Protein 7.1 gm/dl (6.4-8.2)
--- NOTE | 2019-06-03 18:42 | CT Scan Report ---
CT abd pelvis wo con CT DOSE: 557.33 mGy.cm HISTORY: Nausea. Vomiting. vomiting blood TECHNIQUE: Multiaxial CT images of the abdomen and pelvis were performed without contrast. A dose lo wering technique was utilized adhering to the principles of ALARA. COMPARISON STUDY: 08/08/2006 FINDINGS: Lung bases are clear. Prior cholecystectomy. Fatty replacement of the pancreas. Liver splee n and kidneys are unremarkable. No evidence for hydronephrosis. Nonobstructive bowel pattern. Normal appendix. IMPRESSION: No significant abnormality identified within the abdomen or pelvis. Prior cholecystectomy. Small hiat al hernia. ACT 112: Negative or not required by law. The above report was generated using voice recognition software. It may contain grammatical, syntax or spelling errors. Electronically signed by: Karthik Smith M.D. 06/03/2019 6:41 PM
--- NOTE | 2019-06-03 19:11 | XRay Report ---
XR chest 1V portable CLINICAL HISTORY: stemi dyspnea COMPARISON STUDY: 08/17/2018 FINDINGS: Mild cardiac enlargement. Findings of developing pulmonary edema. Diaphragms are smooth. IMPRESSION: Developing pulmonary edema ACT 112: Negative or not required by law. The above report was generated using voice recognition software. It may contain grammatical, syntax or spelling errors. Electronically signed by: Karthik Smith M.D. 06/03/2019 7:09 PM
[2019-06-03] MEDS ORDERED: METOPROLOL TARTRATE 1 MG/ML VIAL IV STA ×2 (19:17→20:38)
[2019-06-03] MEDS ORDERED: FUROSEMIDE 40 MG/4 ML VIAL IV STA (19:42)
[2019-06-03] MEDS ORDERED: NITROGLYCERIN 2% OINTMENT 30GM TUBE EXT SCH ×2 (19:45→20:45)
--- NOTE | 2019-06-03 19:48 | History & Physical Report ---
Date of Service June 03, 2019 Assessment & Plan (1) Acute GI bleeding: Alok is a 63 y/o M with a PMH of HTN, hypercholesterolemia, type II DM, CAD s/p CABG, MIx5, angina pectoris, ischemic cardiomyopathy, systolic CHF, sleep apnea, Parkinson's disease, acid reflux, Mendoza's esophagus, iron deficiency anemia, CKD stage III, gastroparesis, BPH, and depression who presents to hematemesis. Spouse notes onset of vomiting this AM x 2 episodes that was very dark and sticky with concern for GI bleed. He was Hemoccult positive here in ED. While in ED, he had central chest pain x 1 episode that lasted for several minutes and was resolved with Nitro paste. He had some ECG changes with some ST Depression that resolved with Nitro Paste on repeat ECG. Acute GI Bleed - Protonix started in the ED and will continue - Will hold ASA and Plavix - GI Consult placed; Follows with GI Dr. Cooper as outpatient - Hgb currently 12.3, no indication for transfusion, no active signs of bleeding, transfusion threshold 8.0 in a patient with extensive CAD - NPO - H&H q6Hr scheduled Pulmonary Edema - Developing Pulmonary edema seen on CXR in ED, in setting of Chronic Systolic CHF - Lasix 40mg IV x1 given in ED - Monitor I&Os - Will hold further Lasix until re-evaluation by hospital team in AM as with GI bleed do not want to over diuresis and tank blood pressure CAD/Chest Pain/ECG Changes - Will hold all oral meds with exception of his Sinemet for his Parkinson's - Cardiology consult placed - Unable to actively anti-coagulate because of presumed upper GI bleed - Had episode of chest pain with ECG changes concerning for ischemia that resolved in ED with Nitro Paste. - Lopressor 5mg IV q4h ordered, hold for Systolic BP <120, HR <60 - Currently Pulse in 90s and BP 160s/90s - IVF @ 140mL/hr to maintain hemodynamics since NPO and receiving Lasix - Continue with Nitropaste scheduled and NTG SL PRN - ECGs on demand for chest pain - Trending Trops, here in ED 0.036 but might be too acute to show changes as chest pain happened while in ED Chronic Systolic CHF - Chronic Systolic CHF with resolved ischemic cardiomyopathy with EF previously 30-40%, most recently 55-60% August 2015. CKD - Follow w/Dr. Melara - Lab value in ED appears at his baseline 1.91 Gastroparesis - Zofran 4mg IV q6H PRN for nausea Parkinson's - Will continue with oral Sinemet as we do not have IV option Type 2 Diabetes Insulin Dependent - Since NPO will hold his home long acting insulin - Sliding scale ordered Code: Full FENGI: Admit to PCU/Tele, NS @ 140 ml/hr, NPO DVT ppx: SCDs (2) Acid reflux disease: (3) Barretts esophagus: (4) Benign prostate hyperplasia: (5) Chronic kidney disease: (6) Chronic systolic congestive heart failure: (7) S/P coronary artery bypass graft x 4: (8) Coronary artery disease: (9) Gastroparesis: (10) Parkinsons disease: (11) Type 2 diabetes mellitus with insulin therapy: History of Present Illness Chief Complaint: Hematemesis Primary Care Provider: Jamar Avery MD Alok is a 63 y/o M with a PMH of HTN, hypercholesterolemia, type II DM, CAD s/p CABG, MIx5, angina pectoris, ischemic cardiomyopathy, systolic CHF, sleep apnea, Parkinson's disease, acid reflux, Mendoza's esophagus, iron deficiency anemia, CKD stage III, gastroparesis, BPH, and depression who presents to hematemesis. Spouse notes onset of vomiting this AM x 2 episodes that was very dark and sticky with concern for GI bleed. He notes he has had intermittent nausea and vomiting since . He denies prior history of GI bleed. He notes he is on ASA and plavix. He denies any black/bloody stools, but was Hemoccult positive here in ED. While in ED, he had central chest pain x 1 episode that lasted for several minutes and was resolved with Nitro paste. He notes that pain was sharp and that his left arm "felt funny." He denies any shortness of breath. He notes still feeling Nauseous. His last meal was last night dinner he had chicken planks and curly fries. He notes he had diarrhea yesterday but no BM today. He denies abdominal pain currently but notes feeling heartburn earlier. He states he did take his medications today including his aspirin. He states he also took his long acting insulin today as well. No recent steroid use or other NSAIDs. Allergies Allergy/AdvReac Type Severity Reaction Status Date / Time glipizide Allergy Unknown Heart Verified 06/03/19 14:05 Palpatations. nabumetone Allergy Unknown "had drug Verified 06/03/19 14:05 intereaction with this" simvastatin AdvReac Unknown weakness Verified 06/03/19 14:05 Home Medications Home Medications Medication Instructions Recorded Confirmed Type Centrum Silver Men 1 tab PO QAM 08/17/18 06/03/19 History ascorbic acid (vitamin C) [Vitamin 500 mg PO TID 08/17/18 06/03/19 History C] aspirin 81 mg PO QAM 08/17/18 06/03/19 History calcium carbonate-vitamin D3 1 tab PO QAM 08/17/18 06/03/19 History [Calcium 600 + D(3)] clopidogrel 75 mg PO QAM 08/17/18 06/03/19 History cyanocobalamin (vitamin B-12) 1,000 mcg PO QAM 08/17/18 06/03/19 History [Vitamin B-12] ferrous sulfate 325 mg PO TIDM 08/17/18 06/03/19 History insulin aspart U-100 [Novolog See Rx Instructions .ROUTE .COMPLEX 08/17/18 06/03/19 History Flexpen U-100 Insulin] omega [id number] oil [Fish Oil] 1 cap PO BID 08/17/18 06/03/19 History ranolazine 1,000 mg 1,000 mg PO Q12H #180 tab 01/13/19 06/03/19 Rx tablet,extended release,12 hr blood sugar diagnostic #10 ea 01/22/19 06/03/19 History pen needle, diabetic 30 gauge x #1 01/22/19 06/03/19 History 1/3" Lantus Solostar U-100 Insulin 100 40 units SUBCUT DAILY #15 ml NS 01/23/19 06/03/19 Rx unit/mL (3 mL) subcutaneous pen nitroglycerin 0.4 mg sublingual 0.4 mg SUBLINGUAL DIRECTED PRN 02/18/19 06/03/19 Rx tablet #20 tab diltiazem HCl 120 mg 240 mg PO DAILY #180 cap 02/20/19 06/03/19 Rx capsule,extended release 24 hr carbidopa 25 mg-levodopa 100 mg 1 tab PO TID 90 Days #270 tab 10/15/19 01/07/20 Rx tablet metoprolol succinate 100 mg 100 mg PO BID #180 tab 03/12/19 06/03/19 Rx tablet,extended release 24 hr atorvastatin 80 mg tablet 80 mg PO HS #90 tab 05/08/19 06/03/19 Rx isosorbide mononitrate 120 mg PO QAM 06/03/19 06/03/19 History pantoprazole 40 mg PO QAM 06/03/19 06/03/19 History tamsulosin 0.4 mg capsule 0.4 mg PO DAILY #90 cap 06/04/19 Rx metoclopramide HCl 5 mg PO TID #90 tab 06/05/19 Rx Past Med/Surg History Medical History Acid reflux disease (Chronic) Arteriosclerotic vascular disease (Acute 07/04/11) Barretts esophagus (Chronic) Benign prostate hyperplasia (Chronic) Cholelithiasis (Acute 07/21/13) Chronic kidney disease (Chronic) Chronic systolic congestive heart failure (Chronic) Complex sleep apnea syndrome (Chronic) Coronary artery disease (Chronic 07/04/11) Depression (Chronic) Diabetes (Chronic) Diabetes Diverticulosis (Chronic) Dysphagia (Chronic) Dyspnea and respiratory abnormalities (Acute) Fatigue (Chronic) Gastroparesis (Chronic 12/16/12) Health care maintenance (Chronic) Heart attack Hiatal hernia (Chronic) Hyperlipidemia (Chronic 07/04/11) Hypertension Hypertension (Chronic) Ischemic cardiomyopathy (Chronic) NSTEMI (non-ST elevated myocardial infarction) (Acute) Parkinson disease (Chronic) Parkinson disease Parkinsons disease (Chronic) Peripheral vascular disease (Chronic 07/04/11) Seborrheic keratosis (Chronic) Type 2 diabetes mellitus with insulin therapy (Chronic) Xerosis of skin (Acute) Surgical History Hx of cholecystectomy S/P CABG (coronary artery bypass graft) S/P CABG (coronary artery bypass graft) (Chronic) S/P coronary artery bypass graft x 4 (Chronic 07/04/11) Family History Mother Coronary heart disease Father Coronary heart disease Other Diabetes No significant family history Social History Preferred Language: Dominican Communication Ability: Effective Lace Stripper Required: No Beliefs That Will Affect Care: None marital status: Current Living Situation: Spouse Feels Safe at Home: Yes Smoking Status: Never smoker Hx Alcohol Use: Yes Hx Substance Use: No Childhood Exposure to Second-Hand Smoke: No caffeine: No Seatbelt Use: always Review of Systems Review of Systems: All systems reviewed & are unremarkable except as noted in HPI & below Constitutional: no fever, no chills and no body aches Eyes: no diplopia and no eye pain Ear, Nose, Mouth, Throat: no nasal congestion, no epistaxis and no sinus pain/pressure Respiratory: no cough and no dyspnea Cardiovascular: + chest pain; no dyspnea on exertion Gastrointestinal: + nausea, + vomiting and + coffee ground emesis; no abdominal pain Genitourinary: no dysuria and no difficulty urinating Musculoskeletal: no back pain and no neck pain Integumentary: no rash and no new lesions Neurologic: no headache(s) and no confusion Physical Exam Constitutional: WD/WN, vitals as above + ill appearing, cooperative and comfortable Eyes: PERRL, conjunctivae normal, anicteric sclerae ENMT: external ear and nose normal, oropharynx normal Neck: normal visual inspection and trachea midline Respiratory: normal respiratory effort; no respiratory distress and does not use accessory muscles Auscultation: + crackles (bases bilaterally at posterior bases) Cardiovascular: Rate/Rhythm: regular rate and regular rhythm Heart Sounds: + gallop (S3) Extremities: no pedal edema Gastrointestinal (Abdomen): Inspection/Auscultation: normal bowel sounds Percussion/Palpation: abdomen nontender, no guarding and abdomen not rigid Musculoskeletal: Head/Neck/Chest: normocephalic and head atraumatic Skin: no rashes, warm and dry Neurologic: moves all extremities and awake Psychiatric: Orientation: alert and oriented x 3 Affect: + flat affect Results & Data Vital Signs (Past 12 Hours) Vital Signs Temp Pulse Pulse Resp BP BP Pulse Ox 06/03/19 19:38 37.3 C 91 H 16 162/99 H 93 06/03/19 19:37 37.3 C 95 H 16 162/99 H 93 06/03/19 19:30 91 H 162/99 H 01/07/20 18:59 93 H 18 97 06/03/19 16:35 70 18 177/80 H 96 06/03/19 15:29 36.8 C 89 20 118/72 96 Code Status & VTE Plan Code Status Full Code VTE Prophylaxis Plan VTE Prophylaxis will be ordered: Yes Reason for no VTE drug order: Contraindicated (GI bleed) Supervising Physician Co-Signing Physician Notes Attending addendum: I have physically seen this patient, have supervised the medical residents activities, and agree with the H&P unless as otherwise noted. Assessment and Plan: Acute upper GI bleed- Admit to monitored bed. Hold aspirin and Plavix. Protonix drip H&H every 6 hours. 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 Nitropaste 1 inch to anterior chest wall every 6 hours. Lopressor 5 mg IV every 4 hours with hold parameters. Troponin 0.069. Consult cardiology. Remainder orders and notations as noted. Resident Activity Tracking Resident Involvement: Resident Care Provided Care Provided: Adult Hospital Medicine
--- NOTE | 2019-06-03 20:33 | Emergency Department Note ---
Entered by Cary Herrera acting as a scribe for Tian Li DO History of Present Illness General Chief complaint: GI Assessment Stated complaint: VOMITING, POSSIBLE BLOOD Source: patient History of Present Illness Provider complaint: vomiting Onset (ago): day(s) 1 Location: abdomen Pain Consistency: + intermittent Maximum Pain Intensity: 0 Quality: + other (vomiting) Associated symptoms: + other (Negative dysuria; Negative dark tarry stools; Negative abdominal pain; ); no chest pain and no shortness of breath The patient, who is a 63 year old male with a medical history of chronic kidney disease, hypertension, gastroparesis, and Parkinson's disease, presents to the Emergency Room with complaints of vomiting that occurred today The patient explains that for a week this problem resolved however today he has experienced another episode of vomiting. The patient's expresses that the patient had one vomiting episode that resulted in very dark almost blood like stool. The patient denies dysuria, abdominal pain, chest pain, shortness of breath, or dark tarry stools. The patient denies the use of alcohol consumption or steroids. The patient denies a history of gastrointestinal bleeding. The patient states that he has had a cholecystectomy. The patient's reports a history of esophageal cancer. The patient informs that he is currently taking Plavix and Aspirin. Home Medications Home Medications Medication Instructions Recorded Confirmed Type ascorbic acid (vitamin C) [Vitamin 500 mg PO TID 08/17/18 06/03/19 History C] aspirin 81 mg PO QAM 08/17/18 06/03/19 History calcium carbonate-vitamin D3 1 tab PO QAM 08/17/18 06/03/19 History [Calcium 600 + D(3)] clopidogrel 75 mg PO QAM 08/17/18 06/03/19 History cyanocobalamin (vitamin B-12) 1,000 mcg PO QAM 08/17/18 06/03/19 History [Vitamin B-12] ferrous sulfate 325 mg PO TIDM 08/17/18 06/03/19 History insulin aspart U-100 [Novolog See Rx Instructions .ROUTE .COMPLEX 08/17/18 06/03/19 History Flexpen U-100 Insulin] tnenowqp-dcy-GM-lycopen-lutein 1 tab PO QAM 08/17/18 06/03/19 History [Centrum Silver Men] omega 2-zps-lal-fish oil [Fish Oil] 1 cap PO BID 08/17/18 06/03/19 History ranolazine 1,000 mg 1,000 mg PO Q12H #180 tab 01/13/19 06/03/19 Rx tablet,extended release,12 hr blood sugar diagnostic #10 ea 01/22/19 06/03/19 History pen needle, diabetic 30 gauge x #1 01/22/19 06/03/19 History 1/3" Lantus Solostar U-100 Insulin 100 40 units SUBCUT DAILY #15 ml NS 01/23/19 06/03/19 Rx unit/mL (3 mL) subcutaneous pen nitroglycerin 0.4 mg sublingual 0.4 mg SUBLINGUAL DIRECTED PRN 02/18/19 06/03/19 Rx tablet #20 tab diltiazem HCl 120 mg 240 mg PO DAILY #180 cap 02/20/19 06/03/19 Rx capsule,extended release 24 hr carbidopa 25 mg-levodopa 100 mg 1 tab PO TID 90 Days #270 tab 03/11/19 06/03/19 Rx tablet metoprolol succinate 100 mg 100 mg PO BID #180 tab 03/12/19 06/03/19 Rx tablet,extended release 24 hr metoclopramide HCl 10 mg tablet 10 mg PO BID #180 tab 04/29/19 06/03/19 Rx atorvastatin 80 mg tablet 80 mg PO HS #90 tab 05/08/19 06/03/19 Rx isosorbide mononitrate 120 mg PO QAM 06/03/19 06/03/19 History pantoprazole 40 mg PO QAM 06/03/19 06/03/19 History tamsulosin 0.4 mg capsule 0.4 mg PO DAILY #90 cap 06/04/19 Rx Allergies Allergy/AdvReac Type Severity Reaction Status Date / Time glipizide Allergy Unknown Heart Verified 06/03/19 14:05 Palpatations. nabumetone Allergy Unknown "had drug Verified 06/03/19 14:05 intereaction with this" simvastatin AdvReac Unknown weakness Verified 06/03/19 14:05 Past Med/Surg History Medical History Acid reflux disease (Chronic) Arteriosclerotic vascular disease (Acute 07/04/11) Barretts esophagus (Chronic) Benign prostate hyperplasia (Chronic) Cholelithiasis (Acute 07/21/13) Chronic kidney disease (Chronic) Chronic systolic congestive heart failure (Chronic) Complex sleep apnea syndrome (Chronic) Coronary artery disease (Chronic 07/04/11) Depression (Chronic) Diabetes (Chronic) Diabetes Diverticulosis (Chronic) Dysphagia (Chronic) Dyspnea and respiratory abnormalities (Acute) Fatigue (Chronic) Gastroparesis (Chronic 12/16/12) Health care maintenance (Chronic) Heart attack Hiatal hernia (Chronic) Hyperlipidemia (Chronic 07/04/11) Hypertension Hypertension (Chronic) Ischemic cardiomyopathy (Chronic) NSTEMI (non-ST elevated myocardial infarction) (Acute) Parkinson disease (Chronic) Parkinson disease Parkinsons disease (Chronic) Peripheral vascular disease (Chronic 07/04/11) Seborrheic keratosis (Chronic) Type 2 diabetes mellitus with insulin therapy (Chronic) Xerosis of skin (Acute) Surgical History Hx of cholecystectomy S/P CABG (coronary artery bypass graft) S/P CABG (coronary artery bypass graft) (Chronic) S/P coronary artery bypass graft x 4 (Chronic 07/04/11) Family History Mother Coronary heart disease Father Coronary heart disease Other Diabetes No significant family history Social History Preferred Language: Croatian Communication Ability: Effective Door Hanger Required: No Beliefs That Will Affect Care: None marital status: Current Living Situation: Spouse Other Information That Helps Us Care for You: No Feels Safe at Home: Yes Safety Concerns: Feels Safe At This Time Smoking Status: Never smoker Hx Alcohol Use: Yes Hx Substance Use: No Childhood Exposure to Second-Hand Smoke: No caffeine: No Seatbelt Use: always Review of Systems See HPI for pertinent positives & negatives. and A total of 10 systems reviewed and were otherwise negative Physical Exam Vital Signs Vital Signs - 24 hr 06/03/19 15:29 06/03/19 16:35 06/03/19 18:59 Temperature 36.8 C Temperature Source Oral Pulse Rate 89 Pulse Rate [Apical] 70 93 H Respiratory Rate 20 18 18 Blood Pressure 118/72 Blood Pressure [Left Arm] 177/80 H Blood Pressure Mean 87 Blood Pressure Mean [Left Arm] 112 Blood Pressure Position Sitting Pulse Oximetry 96 96 97 Oxygen Delivery Method Room Air Room Air Room Air Sepsis New/Unexplained Change in Mental Status No Sepsis Action Taken by Nursing No Action Required 06/03/19 19:30 06/03/19 19:37 06/03/19 19:38 Temperature 37.3 C 37.3 C Temperature Source Oral Oral Pulse Rate 91 H 91 H Pulse Rate [Apical] 95 H Respiratory Rate 16 16 Blood Pressure 162/99 H 162/99 H Blood Pressure [Left Arm] 162/99 H Blood Pressure Mean 120 Blood Pressure Mean [Left Arm] 120 Blood Pressure Position Pulse Oximetry 93 93 Oxygen Delivery Method Room Air Sepsis New/Unexplained Change in Mental Status Sepsis Action Taken by Nursing GENERAL: Sitting up in bed, alert, moderate distress holding epigastric region EYE EXAM: normal conjunctiva. OROPHARYNX: no exudate, no erythema, lips, buccal mucosa, and tongue normal and mucous membranes are moist NECK: supple, no nuchal rigidity, no adenopathy, non-tender LUNGS: Clear to auscultation. Normal chest wall mechanics HEART: S1 normal and S2 normal ABDOMEN: abdomen soft, non-tender, normo-active bowel sounds, no masses, no rebound or guarding. BACK: Back is symmetrical on inspection and there is no deformity, no midline tenderness, no CVA tenderness. SKIN: no rashes and no bruising UPPER EXTREMITIES: upper extremities are grossly normal. LOWER EXTREMITIES: No pitting edema. NEURO EXAM: Normal sensorium, cranial nerves II-XII grossly intact, normal speech, no gross weakness of arms, no gross weakness of legs. Course Course ED COURSE: Vital signs were reviewed and showed hypertensive The patients medical record was reviewed The above diagnostic studies were performed and reviewed. ED treatments and interventions as stated above. 1446: The patient was evaluated in room . A complete history and physical examination was performed. 0: No longer an interventional candidate and cannot be on bypass anymore. The only way to do anything is if he gets a heart transplant. 1809: I reviewed the patient's case with Fadi Trammell, Cardiology,. He agrees with transfusion and appropriate blood pressure management. 1935: I reviewed the patient's case with Dr. Davalos, [facility] Hospitalist. He will evaluate the patient for further management. 1944: Upon reevaluation, the patient is resting.I discussed my findings with the patient and he understands and agrees with the treatment plan. Based on the patients age, coexisting illnesses, exam and lab findings the decision to treat as an inpatient was made. The patient remained stable while under my care. The patient will be evaluated for further management. Consultations Consultation #1: I reviewed the patient's case with Fadi Trammell, Cardiology,. He agrees with transfusion and appropriate blood pressure management. Time: 18:10 Consultation #2: I reviewed the patient's case with Dr. Davalos, [facility] Hospitalist. He will evaluate the patient for further management. Time: 19:36 Administered Medications Carbidopa/Levodopa (Sinemet 25/100 Mg) 1 tab PO TID MEY Stop: 07/03/19 22:50 Last Admin: 06/04/19 09:30 Dose: 1 tab Documented by: [id number] Admin: 06/03/19 23:58 Dose: 1 tab Documented by: [id number] Pantoprazole Sodium 40 mg/ (Syringe) 10 mls @ 5 mls/min IV BID@0900,2100 MEY Stop: 07/03/19 20:59 Last Admin: 06/04/19 09:30 Dose: 5 mls/min Documented by: [id number] Admin: 06/03/19 21:32 Dose: 5 mls/min Documented by: [id number] Sodium Chloride (Nss 1000ml) 1,000 mls @ 140 mls/hr IV .Q7H9M MEY Stop: 07/03/19 22:50 Last Admin: 06/03/19 23:58 Dose: Not Given Documented by: [id number] Insulin Aspart (Novolog Flexpen) 0 units SC ACHS MEY Stop: 07/03/19 22:50 Last Admin: 06/04/19 09:21 Dose: Not Given Documented by: [id number] Cosigned by: [id number] Admin: 06/03/19 23:46 Dose: Not Given Documented by: [id number] Cosigned by: [id number] Metoprolol Tartrate (Lopressor) 5 mg IV Q4 MEY Stop: 07/04/19 00:00 Last Admin: 06/04/19 09:29 Dose: 5 mg Documented by: [id number] Admin: 06/04/19 04:54 Dose: 5 mg Documented by: [id number] Admin: 06/03/19 23:59 Dose: 5 mg Documented by: [id number] Nitroglycerin (Nitro-Bid 2%) 1 inch EXT Q6 MEY Stop: 07/04/19 00:00 Last Admin: 06/04/19 06:37 Dose: 1 inch Documented by: [id number] Admin: 06/04/19 00:02 Dose: 1 inch Documented by: [id number] Ondansetron HCl (Zofran) 4 mg IV Q6H PRN PRN Reason: Nausea Stop: 07/03/19 22:50 Last Admin: 06/04/19 00:14 Dose: 4 mg Documented by: [id number] Discontinued Medications Furosemide (Lasix) 40 mg IV NOW STA Stop: 06/03/19 19:43 Last Admin: 06/03/19 20:06 Dose: 40 mg Documented by: [id number] Metoprolol Tartrate (Lopressor) 2.5 mg IV NOW STA Stop: 06/03/19 19:18 Last Admin: 06/03/19 19:30 Dose: 2.5 mg Documented by: [id number] Metoprolol Tartrate (Lopressor) 2.5 mg IV NOW STA Stop: 06/03/19 20:39 Last Admin: 06/03/19 20:49 Dose: 2.5 mg Documented by: [id number] Nitroglycerin (Nitrostat) 0.4 mg SL PRN PRN PRN Reason: Allergic Reaction Stop: 07/03/19 17:37 Last Admin: 06/03/19 17:41 Dose: 0.4 mg Documented by: [id number] Nitroglycerin (Nitro-Bid 2%) 0.5 inch EXT Q6H MEY Stop: 07/03/19 19:44 Last Admin: 06/03/19 20:49 Dose: Not Given Documented by: [id number] Nitroglycerin (Nitro-Bid 2%) 1 inch EXT Q6H MEY Stop: 07/03/19 20:44 Last Admin: 06/03/19 20:49 Dose: 0.5 inch Documented by: [id number] Critical Care Time Critical Care Time: Yes Total Critical Care Time: 35 I have personally spent 35 minutes of critical care time in the direct management of this patient. This includes bedside care, interpretation of diagnostic studies, and testing, discussion with consultants, patient, and fa cleo members, and other required patient management activities. This 35 minutes is in excess of all separately billable procedures. Medical Decision Making Differential Diagnosis Differential diagnoses includes but is not limited to acute coronary syndrome, myocardial infarction, pericarditis, pulmonary embolus, aortic dissection, pneumonia, pneumothorax, musculoskeletal, shingles, esophageal, diverticulitis, diverticulosis, AVM, coagulopathy, colitis, inflammatory bowel disease, malignancy, Darlin-Paredes tear, esophagitis, peptic ulcer disease, variceal bleed, gastritis, epistaxis, fissure, hemorrhoids, as well as others were entertained. Medical Records Attestation: I reviewed the patient's medical records. Home Medications Current Medication List: was personally reviewed by me Laboratory Data Attestation: I reviewed the patient's lab results. Result diagrams: 06/04/19 09:05 06/04/19 02:40 Lab Results 06/03/19 06/03/19 06/03/19 Range/Units 17:19 17:19 17:19 WBC 8.25 (4.8-10.8) K/uL RBC 3.97 L (4.7-6.1) M/uL Hgb 12.3 L (14.0-18.0) g/dL Hct 35.7 L (42-52) % MCV 89.9 (80-100) fL MCH 31.0 (25-34) pg MCHC 34.5 (32-36) g/dL RDW Std Deviation 40.4 (36.4-46.3) fL RDW Coeff of Min 12.5 (11.5-14.5) % Plt Count 176 (130-400) K/uL MPV 9.0 (7.4-10.4) fL Immature Gran % (Auto) 1.5 % Neut % (Auto) 70.3 % Lymph % (Auto) 16.0 % [place] % (Auto) 11.6 % Eos % (Auto) 0.5 % Baso % (Auto) 0.1 % Immature Gran # (Auto) 0.12 H (0.00-0.02) K/uL Neut # (Auto) 5.80 (1.4-6.5) K/uL Lymph # (Auto) 1.32 (1.2-3.4) K/uL [place] # (Auto) 0.96 H (0.11-0.59) K/uL Eos # (Auto) 0.04 (0-0.5) K/uL Baso # (Auto) 0.01 (0-0.2) K/uL PT 10.7 (9.0-12.0) Seconds INR 1.0 (0.9-1.1) APTT 20.0 L (21.0-31.0) Seconds PTT Ratio 0.7 Sodium 136 (136-145) mmol/L Potassium 3.6 (3.5-5.1) mmol/L Chloride 101 (98-107) mmol/L Carbon Dioxide 27 (21-32) mmol/L Anion Gap 8.0 (3-11) BUN 21 H (7-18) mg/dl Creatinine 1.91 H (0.6-1.4) mg/dl Est Cr Clr Drug Dosing 44.2 ml/min Est GFR ( Amer) 41.7 Est GFR (Non-Af Amer) 36.0 BUN/Creatinine Ratio 11.2 (10-20) Glucose 242 H (70-99) mg/dl Calcium 9.4 (8.5-10.1) mg/dl Total Bilirubin 1.4 H (0.2-1) mg/dl AST 18 (15-37) U/L ALT 32 (12-78) U/L Alkaline Phosphatase 26 L (45-117) U/L Troponin I (0-0.045) ng/ml Total Protein 7.1 (6.4-8.2) gm/dl Albumin 2.9 L (3.4-5.0) gm/dl Globulin 4.2 H (2.5-4.0) gm/dl Albumin/Globulin Ratio 0.7 L (0.9-2) Blood Type Antibody Screen Crossmatch 06/03/19 06/03/19 06/03/19 Range/Units 17:19 17:19 18:00 WBC (4.8-10.8) K/uL RBC (4.7-6.1) M/uL Hgb (14.0-18.0) g/dL Hct (42-52) % MCV (80-100) fL MCH (25-34) pg MCHC (32-36) g/dL RDW Std Deviation (36.4-46.3) fL RDW Coeff of Min (11.5-14.5) % Plt Count (130-400) K/uL MPV (7.4-10.4) fL Immature Gran % (Auto) % Neut % (Auto) % Lymph % (Auto) % Hancock % (Auto) % Eos % (Auto) % Baso % (Auto) % Immature Gran # (Auto) (0.00-0.02) K/uL Neut # (Auto) (1.4-6.5) K/uL Lymph # (Auto) (1.2-3.4) K/uL Hancock # (Auto) (0.11-0.59) K/uL Eos # (Auto) (0-0.5) K/uL Baso # (Auto) (0-0.2) K/uL PT (9.0-12.0) Seconds INR (0.9-1.1) APTT (21.0-31.0) Seconds PTT Ratio Sodium (136-145) mmol/L Potassium (3.5-5.1) mmol/L Chloride (98-107) mmol/L Carbon Dioxide (21-32) mmol/L Anion Gap (3-11) BUN (7-18) mg/dl Creatinine (0.6-1.4) mg/dl Est Cr Clr Drug Dosing ml/min Est GFR ( Amer) Est GFR (Non-Af Amer) BUN/Creatinine Ratio (10-20) Glucose (70-99) mg/dl Calcium (8.5-10.1) mg/dl Total Bilirubin (0.2-1) mg/dl AST (15-37) U/L ALT (12-78) U/L Alkaline Phosphatase (45-117) U/L Troponin I 0.037 (0-0.045) ng/ml Total Protein (6.4-8.2) gm/dl Albumin (3.4-5.0) gm/dl Globulin (2.5-4.0) gm/dl Albumin/Globulin Ratio (0.9-2) Blood Type Cancelled O Positive Antibody Screen Cancelled NEGATIVE Crossmatch See Detail Imaging Data Radiologist's Impression: Radiology results as stated below per my review and the radiologist's interpretation: CT abd pelvis wo con CT DOSE: 557.33 mGy.cm HISTORY: Nausea. Vomiting. vomiting blood TECHNIQUE: Multiaxial CT images of the abdomen and pelvis were performed without contrast. A dose lowering technique was utilized adhering to the principles of ALARA. COMPARISON STUDY: 08/08/2006 FINDINGS: Lung bases are clear. Prior cholecystectomy. Fatty replacement of the pancreas. Liver spleen and kidneys are unremarkable. No evidence for hydronephrosis. Nonobstructive bowel pattern. Normal appendix. IMPRESSION: No significant abnormality identified within the abdomen or pelvis. Prior cholecystectomy. Small hiatal hernia. ACT 112: Negative or not required by law. The above report was generated using voice recognition software. It may contain grammatical, syntax or spelling errors. Electronically signed by: Karthik Smith M.D. 06/03/2019 6:41 PM XR chest 1V portable CLINICAL HISTORY: stemi dyspnea COMPARISON STUDY: 08/17/2018 FINDINGS: Mild cardiac enlargement. Findings of developing pulmonary edema. Diaphragms are smooth. IMPRESSION: Developing pulmonary edema ACT 112: Negative or not required by law. The above report was generated using voice recognition software. It may contain grammatical, syntax or spelling errors. Electronically signed by: Karthik Smith M.D. 06/03/2019 7:09 PM ECG Data Attestation: I personally reviewed and interpreted this ECG as follows: Indication: + chest pain Rate (beats per minute): 97 Rhythm: + sinus rhythm ECG [place]: + Right axis deviation ECG ST segments: + ST depression (Inferior and Anterior) ECG Findings: no PVCs Additional Comments: MULTIPLE EKGS WERE ASSESSED Blood Pressure Blood Pressure Findings: Elevated blood pressure Blood Pressure Disposition: further management by hospitalist DANYEL Narrative Patient is a 63-year-old male with a past medical history of CAD with CABG, systolic heart failure, ischemic cardiomyopathy on Plavix that presents the ER for an episode of vomiting which contained coffee-ground emesis. On my evaluation abdominal exam was fairly benign. IV was established blood work was obtained. Labs show no significant leukocytosis. Hemoglobin was 12 consistent with previous as patient trends from 12-14. INR was unremarkable as he is only on Plavix. BMP with a creatinine 1.9 consistent with previous. BUN slightly elevated consistent with likely upper GI bleed as he had coffee-ground emesis and is rectally heme positive. Glucose slightly elevated to 42. Bilirubin slightly up at was well at 1.4. No transaminitis. Patient was typed and s creened and crossed. Troponin was detectable but not positive at 0.037. Patient started having chest pain after the result of his blood work. EKG was obtained and showed a STEMI with ST segment elevation in aVR and ST depressions diffusely throughout. Patient was given nitroglycerin. When I reviewed his chart. His notes that he is not interventional candidate. Reviewed note from admission in 2016 which showed he is to be medically managed and is not interventional candidate. He was given nitro and had complete resolution of his pain. Will not place on heparin due to the GI bleed. Discussed with cardiology and they agree with current plan of management as well as blood pressure control. Initial plan was to give 1 unit of PRBCs the chest x-ray did show a little bit of volume overload after discussion with the hospitalist who he was to be admitted to the recommended holding on the PRBCs and giving a dose of Lasix. Patient was given a small dose of Lopressor and placed on Nitropaste as the Nitropaste would be easily reversible if needed. CT abdomen pelvis was unremarkable. Chest x-ray without any acute pathology. Patient family were updated at bedside. Impression & Plan Acute GI bleeding, Arteriosclerotic vascular disease, S/P CABG (coronary artery bypass graft), Hypertension, ST elevation (STEMI) myocardial infarction Discharge Plan Visit Data *Final* Discharge Date/Time: 06/03/19 22:15 Chief Complaint: GI Assessment Stated Complaint: VOMITING, POSSIBLE BLOOD ED Provider: Tian Li Discharge Problem: Acute GI bleeding, Arteriosclerotic vascular disease, S/P CABG (coronary artery bypass graft), Hypertension, ST elevation (STEMI) myocardial infarction Patient Disposition: Admitted As Inpatient Discharge Instructions Interventions: ED Discharge Assessment Last Done: 06/03/19 22:15 Discharge Problem: Hypertension Qualifiers: Hypertension type: unspecified Qualified Code(s): I10 - Essential (primary) hypertension ST elevation (STEMI) myocardial infarction Qualifiers: Involved coronary artery: unspecified coronary artery Qualified Code(s): I21.3 - ST elevation (STEMI) myocardial infarction of unspecified site The scribe's documentation has been prepared under my direction and personally reviewed by me in its entirety. I confirm that the note above accurately reflects all work, treatment, procedures, and medical decision making performed by me.
[2019-06-03 21:15] LABS: Hematocrit (blood only) 35.8 % (42-52); Hemoglobin 12.3 g/dL (14.0-18.0)
[2019-06-03] MEDS: PANTOprazole 40 MG in SYRINGE 0 ML IV SCH (21:32)
[2019-06-03] MEDS ORDERED: SODIUM CHLORIDE 0.9% 1000ML 1,000 ML IV SCH (22:51)
[2019-06-03] MEDS ORDERED: GLUCAGON FOR INJ 1 MG VIAL SQ PRN (23:00)
[2019-06-03] MEDS ORDERED: GLUCOSE 10 TABS/TUBE PO PRN (23:00)
[2019-06-03] MEDS ORDERED: DEXTROSE 50% 50 ML SYRINGE IV PRN (23:00)
[2019-06-03] MEDS ORDERED: CARBOHYDRATES FOR HYPOGLYCEMIA PO PRN (23:00)
[2019-06-03] MEDS ORDERED: GLUCOSE 40% GEL 15 GM TUBE PO PRN (23:00)
[2019-06-03] MEDS: INSULIN ASPART 100 UNITS/ML 3 ML PEN SC SCH (23:46)
[2019-06-03] MEDS: CARBIDOPA/LEVODOPA 25/100MG TAB PO SCH (23:58)
[2019-06-03] MEDS: METOPROLOL TARTRATE 1 MG/ML VIAL IV SCH (23:59)
[2019-06-04] MEDS: NITROGLYCERIN 2% OINTMENT 30GM TUBE EXT SCH ×4 (00:02→17:19)
[2019-06-04] MEDS: ONDANSETRON INJ 2 MG/ML 2 ML VIAL IV PRN (00:14)
[2019-06-04 03:10] LABS: Basophils # (auto) 0.01 K/uL (0-0.2); Basophils % (auto) 0.1 %; Eosinophils # (auto) 0.05 K/uL (0-0.5); Eosinophils % (auto) 0.7 %; Hematocrit (blood only) 34.2 % (42-52); Hemoglobin 11.4 g/dL (14.0-18.0); Immature Granulocytes # (auto) 0.07 K/uL (0.00-0.02); Immature Granulocytes % (auto) 0.9 %; Lymphocytes # (auto) 1.68 K/uL (1.2-3.4); Lymphocytes % (auto) 21.9 %; Mean Corpuscular Hemoglobin 29.2 pg (25-34); Mean Corpuscular Hgb Conc 33.3 g/dL (32-36); Mean Corpuscular Volume 87.7 fL (80-100); Mean Platelet Volume 8.8 fL (7.4-10.4); Monocytes # (auto) 0.89 K/uL (0.11-0.59); Monocytes % (auto) 11.6 %; Neutrophils # (auto) 4.98 K/uL (1.4-6.5); Neutrophils % (auto) 64.8 %; Platelet Count 180 K/uL (130-400); RDW Coefficient of Variation 12.6 % (11.5-14.5); RDW Standard Deviation 40.3 fL (36.4-46.3); White Blood Count 7.68 K/uL (4.8-10.8)
[2019-06-04 03:35] LABS: Albumin Level 2.8 gm/dl (3.4-5.0); BUN Creatinine Ratio 12.3 (10-20); Calcium 8.8 mg/dl (8.5-10.1); Creatinine Clr Calc Pharmacy 48.7 ml/min; Est GFR (Non-African American) 40.5; Magnesium 1.9 mg/dl (1.8-2.4); Potassium 3.5 mmol/L (3.5-5.1)
[2019-06-04 03:42] LABS: Albumin Globulin Ratio 0.7 (0.9-2); Bilirubin,Total 1.5 mg/dl (0.2-1); Globulin 4.2 gm/dl (2.5-4.0); Phosphorus 2.7 mg/dl (2.5-4.9); Troponin I 0.105 ng/ml (0-0.045)
[2019-06-04] MEDS: METOPROLOL TARTRATE 1 MG/ML VIAL IV SCH ×3 (04:54→13:06)
[2019-06-04 09:19] LABS: Hematocrit (blood only) 33.9 % (42-52); Hemoglobin 11.5 g/dL (14.0-18.0)
[2019-06-04] MEDS: INSULIN ASPART 100 UNITS/ML 3 ML PEN SC SCH ×4 (09:21→21:09)
[2019-06-04] MEDS: PANTOprazole 40 MG in SYRINGE 0 ML IV SCH (09:30)
[2019-06-04] MEDS: CARBIDOPA/LEVODOPA 25/100MG TAB PO SCH ×3 (09:30→21:09)
--- NOTE | 2019-06-04 10:07 | Electrocardiogram Report ---
Test Reason : Blood Pressure : / mmHG Vent. Rate : 074 BPM Atrial Rate : 074 BPM P-R Int : 168 ms QRS Dur : 130 ms QT Int : 446 ms P-R-T Axes : 005 -27 070 degrees QTc Int : 495 ms Poor data quality, interpretation may be adversely affected Normal sinus rhythm Left ventricular hypertrophy with QRS widening Abnormal ECG When compared with ECG of 17-AUG-2018 19:48, MT interval has decreased Nonspecific T wave abnormality no longer evident in Anterior leads QT has lengthened Confirmed by John Barraza ([id number]) on 06/04/2019 10:06:52 AM Referred By: Keara Matthews Confirmed By:John Barraza
--- NOTE | 2019-06-04 10:07 | Electrocardiogram Report ---
Test Reason : Blood Pressure : / mmHG Vent. Rate : 102 BPM Atrial Rate : 102 BPM P-R Int : 204 ms QRS Dur : 132 ms QT Int : 378 ms P-R-T Axes : 057 -56 122 degrees QTc Int : 492 ms Sinus tachycardia Left axis deviation Left ventricular hypertrophy with QRS widening and repolarization abnormality Abnormal ECG When compared with ECG of 03-JUN-2019 17:31, (unconfirmed) Premature ventricular complexes are no longer Present QRS axis Shifted left Nonspecific T wave abnormality no longer evident in Inferior leads T wave amplitude has increased in Anterior leads T wave inversion now evident in Lateral leads Confirmed by John Barraza ([id number]) on 06/04/2019 10:07:38 AM Referred By: Keara Matthews Confirmed By:John Barraza
--- NOTE | 2019-06-04 10:07 | Electrocardiogram Report ---
Test Reason : Blood Pressure : / mmHG Vent. Rate : 097 BPM Atrial Rate : 097 BPM P-R Int : 208 ms QRS Dur : 138 ms QT Int : 398 ms P-R-T Axes : 038 117 068 degrees QTc Int : 505 ms Sinus rhythm with frequent Premature ventricular complexes Right axis deviation Non-specific intra-ventricular conduction block Marked ST abnormality, possible anterior subendocardial injury Abnormal ECG When compared with ECG of 03-JUN-2019 16:56, (unconfirmed) Premature ventricular complexes are now Present QRS axis Shifted right ST now depressed in Inferior leads ST now depressed in Anterior leads Confirmed by John Barraza ([id number]) on 06/04/2019 10:07:11 AM Referred By: Keara Matthews Confirmed By:John Barraza
--- NOTE | 2019-06-04 10:08 | Electrocardiogram Report ---
Test Reason : Blood Pressure : / mmHG Vent. Rate : 093 BPM Atrial Rate : 093 BPM P-R Int : 212 ms QRS Dur : 132 ms QT Int : 408 ms P-R-T Axes : 066 -46 086 degrees QTc Int : 507 ms Sinus rhythm with 1st degree A-V block Left axis deviation Left ventricular hypertrophy with QRS widening and repolarization abnormality Abnormal ECG When compared with ECG of 03-JUN-2019 17:46, (unconfirmed) ST no longer depressed in Anterior leads Confirmed by John Barraza ([id number]) on 06/04/2019 10:07:49 AM Referred By: Keara Matthews Confirmed By:John Barraza
--- NOTE | 2019-06-04 10:55 | Cardiology Consultation ---
Date of Consultation June 04, 2019 Assessment & Plan (1) Elevated troponin: The patient demonstrates a mild elevation in his troponin level. This was likely related to his episode of angina pectoris while in the emergency room. Would simply continue medical management. (2) Coronary artery disease: Extensive history as described above. The patient has been deemed inoperable, and therefore, we will follow a medical management strategy. He ty pically takes metoprolol succinate 100 mg b.i.d., long-acting diltiazem 240 mg daily, Imdur 60 mg daily, Plavix 75 mg daily, aspirin 81 mg daily, and Ranexa 1000 mg b.i.d.. His medications are currently on hold. Will likely discontinue aspirin indefinitely. The patient is an acceptable risk for endoscopy. (3) Hypertension: Consider increasing intravenous metoprolol tartrate to 5 mg IV Q 2 hour. (4) Hyperlipidemia: Resume atorvastatin when able. History of Present Illness Attending Physician: Asael Fregoso MD History of Present Illness Mr. Bender is a 63-year-old male appendage yesterday after 2 episodes of hematemesis. While in the emergency room, the patient experienced a typical episodes of his angina pectoris. This consultation was ordered to assist in his cardiac management. Of note, the patient is well known to me from the outpatient setting. The patient was in his usual state of health until . He began to experience nausea and had several episodes of vomiting. He did well for approximately 1 week, then his nausea returned. On the day of presentation, patient experienced 2 episodes of hematemesis. He was seen in an urgent care center who suggested he proceed to the emergency room for further care. During his evaluation here, the patient experienced a typical episode of his angina pectoris. Fortunately, this responded to topical nitrates. The patient's cardiac history began in May 2003 when he underwent a 4 vessel bypass at [facility]. This included an RIVAS to the LAD, an SVG to D2, an SVG to OM1, and SVG to a left-sided PDA. The patient did well until January 2009 when he presented with crescendo angina pectoris. A cardiac catheterization revealed severe [place] vessel disease with a subtotally occluded left main and proximal LAD. There was total occlusion of the proximal and mid LCx. The RIVAS and the SVG to the OM1 were both patent. Unfortunately, SVG to the PDA and the SVG to D2 were totally o ccluded. The PDA filled from collaterals [facility] non dominant right coronary artery. The patient was felt to be inoperable and medical management was recommended. The patient has had chronic stable angina pectoris. He is now on almost maximal medical management. Currently, patient is resting comfortably in bed without complaints. Past medical and surgical history 1. Coronary artery disease-see above 2. CABG x4-May 2003 3. Resolved ischemic cardiomyopathy 4. Chronic diastolic CHF 5. Hypertension 6. Hypercholesterolemia 7. Chronic stable angina pectoris 8. Diabetes mellitus 9. Depression 10. BPH 11. GERD 12. Mendoza's esophagus 13. Chronic renal failure 14. Diverticulosis 15. Colonic polyps 16. Parkinson's disease 17. Cholecystectomy 18. Hiatal hernia repair-December 2011 Social history and lives with his No tobacco or alcohol Family history Significant for early coronary artery disease Review of systems A 10 point review of systems was negative except for that described above. Allergies Allergy/AdvReac Type Severity Reaction Status Date / Time glipizide Allergy Unknown Heart Verified 06/03/19 14:05 Palpatations. nabumetone Allergy Unknown "had drug Verified 06/03/19 14:05 intereaction with this" simvastatin AdvReac Unknown weakness Verified 06/03/19 14:05 Home Medications Home Medications Medication Instructions Recorded Confirmed Type ascorbic acid (vitamin C) [Vitamin 500 mg PO TID 08/17/18 06/03/19 History C] aspirin 81 mg PO QAM 08/17/18 06/03/19 History calcium carbonate-vitamin D3 1 tab PO QAM 08/17/18 06/03/19 History [Calcium 600 + D(3)] clopidogrel 75 mg PO QAM 08/17/18 06/03/19 History cyanocobalamin (vitamin B-12) 1,000 mcg PO QAM 08/17/18 06/03/19 History [Vitamin B-12] ferrous sulfate 325 mg PO TIDM 08/17/18 06/03/19 History insulin aspart U-100 [Novolog See Rx Instructions .ROUTE .COMPLEX 08/17/18 06/03/19 History Flexpen U-100 Insulin] gwjktcae-yrv-OS-lycopen-lutein 1 tab PO QAM 08/17/18 06/03/19 History [Centrum Silver Men] omega 5-azi-igs-fish oil [Fish Oil] 1 cap PO BID 08/17/18 06/03/19 History ranolazine 1,000 mg 1,000 mg PO Q12H #180 tab 01/13/19 06/03/19 Rx tablet,extended release,12 hr blood sugar diagnostic #10 ea 01/22/19 06/03/19 History pen needle, diabetic 30 gauge x #1 01/22/19 06/03/19 History 1/3" Lantus Solostar U-100 Insulin 100 40 units SUBCUT DAILY #15 ml NS 01/23/19 06/03/19 Rx unit/mL (3 mL) subcutaneous pen nitroglycerin 0.4 mg sublingual 0.4 mg SUBLINGUAL DIRECTED PRN 02/18/19 06/03/19 Rx tablet #20 tab diltiazem HCl 120 mg 240 mg PO DAILY #180 cap 02/20/19 06/03/19 Rx capsule,extended release 24 hr carbidopa 25 mg-levodopa 100 mg 1 tab PO TID 90 Days #270 tab 03/11/19 06/03/19 Rx tablet metoprolol succinate 100 mg 100 mg PO BID #180 tab 03/12/19 06/03/19 Rx tablet,extended release 24 hr metoclopramide HCl 10 mg tablet 10 mg PO BID #180 tab 04/29/19 06/03/19 Rx atorvastatin 80 mg tablet 80 mg PO HS #90 tab 05/08/19 06/03/19 Rx isosorbide mononitrate 120 mg PO QAM 06/03/19 06/03/19 History pantoprazole 40 mg PO QAM 06/03/19 06/03/19 History tamsulosin 0.4 mg capsule 0.4 mg PO DAILY #90 cap 06/04/19 Rx Patient History Medical History Acid reflux disease (Chronic) Arteriosclerotic vascular disease (Acute 07/04/11) Barretts esophagus (Chronic) Benign prostate hyperplasia (Chronic) Cholelithiasis (Acute 07/21/13) Chronic kidney disease (Chronic) Chronic systolic congestive heart failure (Chronic) Complex sleep apnea syndrome (Chronic) Coronary artery disease (Chronic 07/04/11) Depression (Chronic) Diabetes (Chronic) Diabetes Diverticulosis (Chronic) Dysphagia (Chronic) Dyspnea and respiratory abnormalities (Acute) Fatigue (Chronic) Gastroparesis (Chronic 12/16/12) Health care maintenance (Chronic) Heart attack Hiatal hernia (Chronic) Hyperlipidemia (Chronic 07/04/11) Hypertension Hypertension (Chronic) Ischemic cardiomyopathy (Chronic) NSTEMI (non-ST elevated myocardial infarction) (Acute) Parkinson disease (Chronic) Parkinson disease Parkinsons disease (Chronic) Peripheral vascular disease (Chronic 07/04/11) Seborrheic keratosis (Chronic) Type 2 diabetes mellitus with insulin therapy (Chronic) Xerosis of skin (Acute) Surgical History Hx of cholecystectomy S/P CABG (coronary artery bypass graft) S/P CABG (coronary artery bypass graft) (Chronic) S/P coronary artery bypass graft x 4 (Chronic 07/04/11) Family History Mother Coronary heart disease Father Coronary heart disease Other Diabetes No significant family history Social History Preferred Language: Malaysian Communication Ability: Effective Compliance Spec Required: No Beliefs That Will Affect Care: None marital status: Current Living Situation: Spouse Other Information That Helps Us Care for You: No Feels Safe at Home: Yes Safety Concerns: Feels Safe At This Time Smoking Status: Never smoker Hx Alcohol Use: Yes Hx Substance Use: No Childhood Exposure to Second-Hand Smoke: No caffeine: No Seatbelt Use: always Physical Exam Physical Exam: In general this is a well-developed well-nourished white male in no acute distress. HEENT exam is negative. Neck is supple with full carotid upstrokes. There are no carotid bruits. Jugular venous pressure is flat at 90. There is no thyromegaly. Cardiovascular exam reveals a regular rhythm with a normal S1-S2. Heart sounds are distant. No obvious murmurs. Chest reveals a well-healed midline scar. Lungs are clear without rales, rhonchi, or wheezes. Abdomen is soft and nontender without bruits. Extremities reveal intact radial artery and posterior tibial pulses bilaterally. There is no peripheral edema. Results & Data Vital Signs (Past 12 Hours) Vital Signs Temp Pulse Pulse Pulse Resp BP BP 06/04/19 09:29 77 164/83 H 06/04/19 07:27 77 06/04/19 07:24 36.8 C 81 18 164/83 H 06/04/19 04:54 86 159/87 H 06/04/19 03:50 36.7 C 86 18 159/87 H 06/03/19 23:59 92 H 181/94 H 06/03/19 23:30 85 06/03/19 22:55 36.9 C 91 H 22 181/94 H Pulse Ox 06/04/19 09:29 06/04/19 07:27 06/04/19 07:24 96 06/04/19 04:54 06/04/19 03:50 96 06/03/19 23:59 06/03/19 23:30 06/03/19 22:55 95 Laboratory Results CBC notes hemoglobin 11.4, hematocrit 34.2, white count 7.68, platelet count [id number]. Electrolytes notice sodium of 130, potassium 3.5, chloride 103, bicarb 29, BUN 21, creatinine 1.73, and a glucose of 124. Initial troponin was 0.037 with follow-up values of 0.069 and 0.105. Diagnostic Findings EKG notes normal sinus rhythm occasional PVCs incomplete right bundle-branch block. Dynamic ST depression was noted in the lateral leads during an episode of angina pectoris. Chest x-ray shows no acute disease. PG Care Time/CCT Total # of Minutes Spent Total Time Spent with Patient: Total time spent is greater than 50% in coordination of care (as documented) at patient's floor/unit and/or counseling patient: (1) Hypertension Hypertension type: unspecified Qualified Code(s): I10 - Essential (primary) hypertension
[2019-06-04] MEDS ORDERED: KETAMINE HCL INJ 50 MG/ML 10 ML VIAL ONE (11:33)
--- NOTE | 2019-06-04 11:36 | Anesthesiology Consultation ---
Date of Service June 04, 2019 Assessment & Plan (1) Encounter for pre-operative examination: Chart Review Chart Review: Acceptable Risk for Surgery and Patient NOT seen in Pre Admission Testing Consults Requested none History Surgery Operation Date: 06/04/19 16:30 Proposed Procedures p Esophagogastroduodenoscopy Dr. Burton - Juan M Burton MD Height/Weight Height: 5 ft 10 in Weight: 90.5 kg Allergies Allergy/AdvReac Type Severity Reaction Status Date / Time glipizide Allergy Unknown Heart Verified 06/03/19 14:05 Palpatations. nabumetone Allergy Unknown "had drug Verified 06/03/19 14:05 intereaction with this" simvastatin AdvReac Unknown weakness Verified 06/03/19 14:05 Medications Home Medications Medication Instructions Recorded Confirmed Last Taken ascorbic acid (vitamin C) [Vitamin 500 mg PO TID 08/17/18 06/03/19 Unknown C] aspirin 81 mg PO QAM 08/17/18 06/03/19 06/03/19 12:00 calcium carbonate-vitamin D3 1 tab PO QAM 08/17/18 06/03/19 Unknown [Calcium 600 + D(3)] clopidogrel 75 mg PO QAM 08/17/18 06/03/19 06/03/19 12:00 cyanocobalamin (vitamin B-12) 1,000 mcg PO QAM 08/17/18 06/03/19 Unknown [Vitamin B-12] ferrous sulfate 325 mg PO TIDM 08/17/18 06/03/19 Unknown insulin aspart U-100 [Novolog See Rx Instructions .ROUTE .COMPLEX 08/17/18 06/03/19 Unknown Flexpen U-100 Insulin] tihdezbp-bfk-FE-lycopen-lutein 1 tab PO QAM 08/17/18 06/03/19 Unknown [Centrum Silver Men] omega 5-avn-bjc-fish oil [Fish Oil] 1 cap PO BID 08/17/18 06/03/19 Unknown ranolazine 1,000 mg 1,000 mg PO Q12H #180 tab 01/13/19 06/03/19 Unknown tablet,extended release,12 hr blood sugar diagnostic #10 ea 01/22/19 06/03/19 Unknown pen needle, diabetic 30 gauge x #1 01/22/19 06/03/19 Unknown /" Lantus Solostar U-100 Insulin 100 40 units SUBCUT DAILY #15 ml NS 01/23/19 06/03/19 Unknown unit/mL (3 mL) subcutaneous pen nitroglycerin 0.4 mg sublingual 0.4 mg SUBLINGUAL DIRECTED PRN 02/18/19 06/03/19 Unknown tablet #20 tab diltiazem HCl 120 mg 240 mg PO DAILY #180 cap 02/20/19 06/03/19 06/03/19 12:00 capsule,extended release 24 hr carbidopa 25 mg-levodopa 100 mg 1 tab PO TID 90 Days #270 tab 03/11/19 06/03/19 Unknown tablet metoprolol succinate 100 mg 100 mg PO BID #180 tab 03/12/19 06/03/19 Unknown tablet,extended release 24 hr metoclopramide HCl 10 mg tablet 10 mg PO BID #180 tab 04/29/19 06/03/19 Unknown atorvastatin 80 mg tablet 80 mg PO HS #90 tab 05/08/19 06/03/19 Unknown isosorbide mononitrate 120 mg PO QAM 06/03/19 06/03/19 Unknown pantoprazole 40 mg PO QAM 06/03/19 06/03/19 Unknown tamsulosin 0.4 mg capsule 0.4 mg PO DAILY #90 cap 06/04/19 Unknown Active Medications Generic Name Dose Route Start Last Admin Trade Name Freq PRN Reason Stop Dose Admin Carbidopa/Levodopa 1 tab 06/03/19 22:51 06/04/19 09:30 Sinemet 25/100 Mg PO 07/03/19 22:50 1 tab TID MEY Administration Pantoprazole Sodium 40 mg/ 10 mls @ 5 mls/min 06/03/19 21:00 06/04/19 09:30 Syringe IV 07/03/19 20:59 5 mls/min BID@0900,2100 MEY Administration Sodium Chloride 1,000 mls @ 140 mls/hr 06/03/19 22:51 06/03/19 23:58 Nss 1000ml IV 07/03/19 22:50 Not Given .[id number] MEY Insulin Aspart 0 units 06/03/19 22:51 06/04/19 09:21 Novolog Flexpen SC 07/03/19 22:50 Not Given ACHS MEY Metoprolol Tartrate 5 mg 06/04/19 00:00 06/04/19 09:29 Lopressor IV 07/04/19 00:00 5 mg Q4 MEY Administration Nitroglycerin 1 inch 06/04/19 00:00 06/04/19 06:37 Nitro-Bid 2% EXT 07/04/19 00:00 1 inch Q6 MEY Administration Ondansetron HCl 4 mg 06/03/19 22:51 06/04/19 00:14 Zofran IV 07/03/19 22:50 4 mg Q6H PRN Administration Nausea NPO Date Last Intake of Fluids: 06/04/19 Time Last Intake of Fluids: 09:00 Last Intake of Fluids Comment: sip Date Last Intake of Solids: 06/03/19 Past Medical History Medical History Acid reflux disease (Chronic) Arteriosclerotic vascular disease (Acute 07/04/11) Barretts esophagus (Chronic) Benign prostate hyperplasia (Chronic) Cholelithiasis (Acute 07/21/13) Chronic kidney disease (Chronic) Chronic systolic congestive heart failure (Chronic) Complex sleep apnea syndrome (Chronic) Coronary artery disease (Chronic 07/04/11) Depression (Chronic) Diabetes (Chronic) Diabetes Diverticulosis (Chronic) Dysphagia (Chronic) Dyspnea and respiratory abnormalities (Acute) Fatigue (Chronic) Gastroparesis (Chronic 12/16/12) Health care maintenance (Chronic) Heart attack Hiatal hernia (Chronic) Hyperlipidemia (Chronic 07/04/11) Hypertension Hypertension (Chronic) Ischemic cardiomyopathy (Chronic) NSTEMI (non-ST elevated myocardial infarction) (Acute) Parkinson disease (Chronic) Parkinson disease Parkinsons disease (Chronic) Peripheral vascular disease (Chronic 07/04/11) Seborrheic keratosis (Chronic) Type 2 diabetes mellitus with insulin therapy (Chronic) Xerosis of skin (Acute) Past Family History Family History Mother Coronary heart disease Father Coronary heart disease Other Diabetes No significant family history Past Surgical History Surgical History Hx of cholecystectomy S/P CABG (coronary artery bypass graft) S/P CABG (coronary artery bypass graft) (Chronic) S/P coronary artery bypass graft x 4 (Chronic 07/04/11) Social History Smoking Status: Never smoker Hx Alcohol Use: Yes alcohol intake frequency: holidays/special occasions only Hx Substance Use: No Physical Exam Vital Signs Last Vital Signs Temp 36.8 C 06/04/19 11:27 Pulse 82 06/04/19 11:27 Resp 16 06/04/19 11:27 BP 177/83 H 06/04/19 11:27 Pulse Ox 96 06/04/19 11:27 Testing Laboratory Results 06/04/19 09:05 06/04/19 02:40 PT 10.7 Seconds (9.0-12.0) 06/03/19 17:19 INR 1.0 (0.9-1.1) 06/03/19 17:19 APTT 20.0 Seconds (21.0-31.0) L 06/03/19 17:19 Blood Type O Positive 06/03/19 18:00 Antibody Screen NEGATIVE 06/03/19 18:00 06/04/19 06/03/19 10:58 23:24 POC Glucose 102 H 184 H
[2019-06-04] MEDS ORDERED: ATROPINE SULFATE 0.1 MG/ML 10ML SYR IV PRN (11:38)
[2019-06-04] MEDS ORDERED: ePHEDrine sulfate 50 MG/ML AMP IV PRN (11:38)
--- NOTE | 2019-06-04 11:45 | Gastrointestinal Consultation ---
Date of Consultation June 04, 2019 Assessment & Plan (1) Hematemesis: ddx includes PUD vs. AVM vs. other etiology. Proceed with EGD. risks/benefits and procedure discussed with patient, who agrees to proceed History of Present Illness Attending Physician: Asael Fregoso MD 63 yo male with hx CAD on plavix who came in with coffee ground emesis. It occurred two times yesterday morning, none since arriving in the hospital. Never had this problem before, denies NSAID abuse but has a hx Mendoza's esophagus last EGD few years ago, no PUD before. He denies dizziness and lightheadedness, n/v, abdominal pains, fevers, chills, sweats, diarrhea, constipation. Denies any dark stool nor hematochezia. Hgb noted to be 11.5 from baseline of 13. Labs reviewed, BUN elevated consistent with UGI bleed. Allergies Allergy/AdvReac Type Severity Reaction Status Date / Time glipizide Allergy Unknown Heart Verified 06/03/19 14:05 Palpatations. nabumetone Allergy Unknown "had drug Verified 06/03/19 14:05 intereaction with this" simvastatin AdvReac Unknown weakness Verified 06/03/19 14:05 Home Medications Home Medications Medication Instructions Recorded Confirmed Type ascorbic acid (vitamin C) [Vitamin 500 mg PO TID 08/17/18 06/03/19 History C] aspirin 81 mg PO QAM 08/17/18 06/03/19 History calcium carbonate-vitamin D3 1 tab PO QAM 08/17/18 06/03/19 History [Calcium 600 + D(3)] clopidogrel 75 mg PO QAM 08/17/18 06/03/19 History cyanocobalamin (vitamin B-12) 1,000 mcg PO QAM 08/17/18 06/03/19 History [Vitamin B-12] ferrous sulfate 325 mg PO TIDM 08/17/18 06/03/19 History insulin aspart U-100 [Novolog See Rx Instructions .ROUTE .COMPLEX 08/17/18 06/03/19 History Flexpen U-100 Insulin] fdhtogit-lqa-UD-lycopen-lutein 1 tab PO QAM 08/17/18 06/03/19 History [Centrum Silver Men] omega 8-meo-gol-fish oil [Fish Oil] 1 cap PO BID 08/17/18 06/03/19 History ranolazine 1,000 mg 1,000 mg PO Q12H #180 tab 01/13/19 06/03/19 Rx tablet,extended release,12 hr blood sugar diagnostic #10 ea 01/22/19 06/03/19 History pen needle, diabetic 30 gauge x #1 01/22/19 06/03/19 History 1/3" Lantus Solostar U-100 Insulin 100 40 units SUBCUT DAILY #15 ml NS 01/23/19 06/03/19 Rx unit/mL (3 mL) subcutaneous pen nitroglycerin 0.4 mg sublingual 0.4 mg SUBLINGUAL DIRECTED PRN 02/18/19 06/03/19 Rx tablet #20 tab diltiazem HCl 120 mg 240 mg PO DAILY #180 cap 02/20/19 06/03/19 Rx capsule,extended release 24 hr carbidopa 25 mg-levodopa 100 mg 1 tab PO TID 90 Days #270 tab 03/11/19 06/03/19 Rx tablet metoprolol succinate 100 mg 100 mg PO BID #180 tab 03/12/19 06/03/19 Rx tablet,extended release 24 hr metoclopramide HCl 10 mg tablet 10 mg PO BID #180 tab 04/29/19 06/03/19 Rx atorvastatin 80 mg tablet 80 mg PO HS #90 tab 05/08/19 06/03/19 Rx isosorbide mononitrate 120 mg PO QAM 06/03/19 06/03/19 History pantoprazole 40 mg PO QAM 06/03/19 06/03/19 History tamsulosin 0.4 mg capsule 0.4 mg PO DAILY #90 cap 06/04/19 Rx Patient History Medical History Acid reflux disease (Chronic) Arteriosclerotic vascular disease (Acute 07/04/11) Barretts esophagus (Chronic) Benign prostate hyperplasia (Chronic) Cholelithiasis (Acute 07/21/13) Chronic kidney disease (Chronic) Chronic systolic congestive heart failure (Chronic) Complex sleep apnea syndrome (Chronic) Coronary artery disease (Chronic 07/04/11) Depression (Chronic) Diabetes (Chronic) Diabetes Diverticulosis (Chronic) Dysphagia (Chronic) Dyspnea and respiratory abnormalities (Acute) Fatigue (Chronic) Gastroparesis (Chronic 12/16/12) Health care maintenance (Chronic) Heart attack Hiatal hernia (Chronic) Hyperlipidemia (Chronic 07/04/11) Hypertension Hypertension (Chronic) Ischemic cardiomyopathy (Chronic) NSTEMI (non-ST elevated myocardial infarction) (Acute) Parkinson disease (Chronic) Parkinson disease Parkinsons disease (Chronic) Peripheral vascular disease (Chronic 07/04/11) Seborrheic keratosis (Chronic) Type 2 diabetes mellitus with insulin therapy (Chronic) Xerosis of skin (Acute) Surgical History Hx of cholecystectomy S/P CABG (coronary artery bypass graft) S/P CABG (coronary artery bypass graft) (Chronic) S/P coronary artery bypass graft x 4 (Chronic 07/04/11) Family History Mother Coronary heart disease Father Coronary heart disease Other Diabetes No significant family history Social History Preferred Language: Micronesian Communication Ability: Effective Hot Oiler Required: No Beliefs That Will Affect Care: None marital status: Current Living Situation: Spouse Other Information That Helps Us Care for You: No Feels Safe at Home: Yes Safety Concerns: Feels Safe At This Time Smoking Status: Never smoker Hx Alcohol Use: Yes Hx Substance Use: No Childhood Exposure to Second-Hand Smoke: No caffeine: No Seatbelt Use: always Review of Systems Constitutional: no fever, no chills and no weight loss Eyes: as per Subjective / HPI Ear, Nose, Mouth, Throat: as per Subjective / HPI Respiratory: no dyspnea and no dyspnea on exertion Cardiovascular: no chest pain and no palpitations Gastrointestinal: as per Subjective / HPI Musculoskeletal: no joint pain and no swelling Integumentary: no rash and no lesions Neurologic: no numbness and no paresthesia Psychiatric: no depression and no anxiety Endocrine: no fatigue Hematologic / Lymphatic: no easy bleeding and no easy bruising Physical Exam Constitutional: WD/WN, vitals as above Eyes: EOM intact bilaterally Neck: normal visual inspection Respiratory: normal respiratory effort, lungs clear to auscultation Cardiovascular: RRR, no murmur, no edema Gastrointestinal (Abdomen): Inspection/Auscultation: abdomen normal to inspection; abdomen not distended Percussion/Palpation: abdomen soft; abdomen nontender and no hepatosplenomegaly Musculoskeletal: Extremities: no cyanosis Gait: normal gait Skin: no rashes, warm and dry Neurologic: moves all extremities Psychiatric: A+Ox3, euthymic affect Results & Data Vital Signs (Past 12 Hours) Vital Signs Temp Pulse Pulse Pulse Resp BP BP 06/04/19 11:27 36.8 C 82 16 06/04/19 09:29 77 164/83 H 06/04/19 07:27 77 06/04/19 07:24 36.8 C 81 18 164/83 H 06/04/19 04:54 86 159/87 H 06/04/19 03:50 36.7 C 86 18 159/87 H 06/03/19 23:59 92 H 181/94 H BP Pulse Ox 06/04/19 11:27 177/83 H 96 06/04/19 09:29 06/04/19 07:27 06/04/19 07:24 96 06/04/19 04:54 06/04/19 03:50 96 06/03/19 23:59 PG Care Time/CCT Total # of Minutes Spent Total Time Spent with Patient: Total time spent is greater than 50% in marketing proposal coordinator rdination of care (as documented) at patient's floor/unit and/or counseling patient:
--- NOTE | 2019-06-04 12:06 | Communication Note ---
Date of Service: June 04, 2019 brief note GI: EGD indication: coffee ground emesis see procedure note for full details no active bleeding nor ulcers noted throughout entire exam, there was Mendoza's esophagus in the distal esophagus, biopsies taken; food retention in the stomach c/w known diagnosis of gastroparesis Recs: --reglan 5 TID with meals for gastroparesis --no evidence of GI bleeding, supportive care --low fat low fiber diet rest as per primary team Juan M Burton MD Gastroenterology
--- NOTE | 2019-06-04 12:17 | GI REPORT ---
Patient Name: Alok Bender Procedure Date: 06/04/2019 11:35 AM Date of : 1955 Admit Type: Inpatient Age: 63 Gender: Male Attending MD: Juan M Burton MD Procedure: Upper GI endoscopy Providers: Juan M Burton MD Referring MD: Keara Matthews Pa-c Indications: Coffee-ground emesis Medicines: Monitored Anesthesia Care Complications: No immediate complications. Estimated blood loss: None. Estimated Blood Loss: Estimated blood loss: none. Procedure: Pre-Anesthesia Assessment: - Prior Anticoagulants: The patient has taken no previous anticoagulant or antiplatelet agents. - ASA Grade Assessment: III - A patient with severe systemic disease. After obtaining informed consent, the endoscope was passed under direct vision. Throughout the procedure, the patient's blood pressure, pulse, and oxygen saturations were monitored continuously. The Endoscope was introduced through the mouth, and advanced to the second part of duodenum. The upper GI endoscopy was accomplished without difficulty. The patient tolerated the procedure well. Findings: There were esophageal mucosal changes suggestive of Mendoza's esophagus present at the gastroesophageal junction. Mucosa was biopsied with a cold forceps for histology. One specimen bottle was sent to pathology. Estimated blood loss: none. No evidence of bleeding in the esophagus. A small amount of food (residue) was found in the gastric fundus. No evidence of bleeding in the stomach nor ulcers. The duodenal bulb and second portion of the duodenum were normal. No evidence of bleeding in the duodenum. Impression: - Esophageal mucosal changes suggestive of Mendoza's esophagus. Biopsied. - A small amount of food (residue) in the stomach. - Normal duodenal bulb and second portion of the duodenum. Recommendation: - Return patient to [facility] for ongoing care. - Low fiber, low fat diet today. - Await pathology results. - reglan 5 mg TID with meals for gastroparesis - rest as per primary team Juan M Burton MD 06/04/2019 12:16:51 PM This report has been signed electronically. Note Initiated On: 06/04/2019 11:35 AM Number of Addenda: 0 I attest to the content of the Intraoperative Record and orders documented therein, exceptions below {[id number]}
[2019-06-04] MEDS ORDERED: NITROGLYCERIN SL 0.4 MG/TAB TAB SL PRN (13:02)
[2019-06-04] MEDS ORDERED: METOPROLOL TARTRATE 1 MG/ML VIAL IV PRN (13:10)
--- NOTE | 2019-06-04 13:10 | Hospitalist Progress Note ---
Date of Service June 04, 2019 Assessment & Plan (1) Hematemesis: GI performed EGD 06/04 without any s/s of old or active bleeding CT abd/pelvis without abnormality (2) Elevated troponin: Peaked at 0.105 and trending down. In the ED patient had anterior ST depressions that resolved with nitro Per cardiology, patient has significant cardiac history that is inoperable, will continue with current cardiovascular regimen Will resume po meds including ASA and plavix as no bleeding was seen on EGD (3) Coronary artery disease: As above - continue ASA, plavix, statin, metoprolol, ranolazine, isosorbide, (4) Barretts esophagus: Continue ppi (5) Benign prostate hyperplasia: Continue home tamsulosin (6) Chronic kidney disease: avoid nephrotoxins where possible At baseline which is around 1.9 (7) Chronic systolic congestive heart failure: with resolved ischemic cardiomyopathy with EF previously 30-40%, most recently 55-60% August 2015. Pulmonary edema on admission Given 40 mg IV lasix x1 Monitor Is&Os, daily weights Will hold off on further diuresis for now (8) Parkinsons disease: continue Sinemet (9) Hyperlipidemia: Continue statin (10) Hypertension: Continue diltiazem, metoprolol, (11) Type 2 diabetes mellitus with insulin therapy: Bsgs ac & hs SS, lant (12) Gastroparesis: Per GI rec - Reglan 5 mg tid before meals, low fat/low fiber diet (13) DVT prophylaxis: SCDs Subjective Mr. Bender had no further vomiting since admission. He did still have some mild nausea but otherwise had no complaints. No chest pain. ROS Constitutional: no chills, aches, sweats or fever Respiratory: no sob,cough, sputum, or wheezing Cardiac: no chest pain, palpitations, edema, orthopnea or lightheadedness GI: see HPI : no dysuria or hesitancy Extremities: no joint pain or weakness Skin: no rash All other systems reviewed and negative Physical Exam Physical Exam: General: no distress Eyes: normal inspection, PERLL Respiratory: chest non tender, clear to auscultation, normal breath sounds, no respiratory distress, no accessory muscle use Cardiac: regular rate and rhythm, no rub or gallop, no murmur, no edema, no jvd GI/: active bowel sounds, no abd pain or tenderness, soft, non distended Extremities: normal range of motion, normal strength, non tender Neuro/Psych: alert and oriented x 3, normal mood and affect Skin: normal color, dry Results & Data Vital Signs (Past 12 Hours) Vital Signs Temp Pulse Pulse Pulse Resp BP BP 06/04/19 12:37 76 16 06/04/19 12:22 77 16 06/04/19 12:05 75 16 06/04/19 11:27 36.8 C 82 16 06/04/19 09:29 77 164/83 H 06/04/19 07:27 77 06/04/19 07:24 36.8 C 81 18 164/83 H 06/04/19 04:54 86 159/87 H 06/04/19 03:50 36.7 C 86 18 159/87 H BP Pulse Ox 06/04/19 12:37 153/81 H 92 06/04/19 12:22 104/48 L 92 06/04/19 12:05 94/69 L 98 06/04/19 11:27 177/83 H 96 06/04/19 09:29 06/04/19 07:27 06/04/19 07:24 96 06/04/19 04:54 06/04/19 03:50 96 PG Care Time/CCT Total # of Minutes Spent Total Time Spent with Patient: Total time spent is greater than 50% in coordination of care (as documented) at patient's floor/unit and/or counseling patient: (1) Hypertension Hypertension type: unspecified Qualified Code(s): I10 - Essential (primary) hypertension
[2019-06-04] MEDS ORDERED: PROPOFOL IV EMULSION 10 MG/ML 20 ML VIAL IV ONE ×2 (13:37→14:44)
[2019-06-04] MEDS ORDERED: LIDOCAINE HCL 2% 2 ML VIAL/AMP(20MG/ML) INFIL ONE ×2 (13:37→14:44)
[2019-06-04] MEDS: RANOLAZINE 500 MG ER TAB PO SCH (14:07)
[2019-06-04] MEDS: ASCORBIC ACID 500 MG TAB PO SCH ×2 (14:08→21:09)
[2019-06-04] MEDS: METOCLOPRAMIDE HCL 5 MG TABLET PO SCH ×2 (14:08→21:08)
--- NOTE | 2019-06-04 14:12 | Anesthesiology Progress Note ---
Date of Service June 04, 2019 Anesthesia Post Procedure Vital Signs Vital Signs: Temp Pulse Pulse Pulse Resp BP BP 06/04/19 13:49 36.9 C 70 16 06/04/19 13:21 36.7 C 72 16 06/04/19 13:06 76 153/81 H 06/04/19 12:37 76 16 06/04/19 12:22 77 16 06/04/19 12:05 75 16 06/04/19 11:27 36.8 C 82 16 06/04/19 09:29 77 164/83 H 06/04/19 07:27 77 06/04/19 07:24 36.8 C 81 18 164/83 H 06/04/19 04:54 86 159/87 H 06/04/19 03:50 36.7 C 86 18 159/87 H 06/03/19 23:59 92 H 181/94 H 06/03/19 23:30 85 06/03/19 22:55 36.9 C 91 H 22 181/94 H 06/03/19 21:37 88 18 160/85 H 06/03/19 19:38 37.3 C 91 H 16 162/99 H 06/03/19 19:37 37.3 C 95 H 16 162/99 H 06/03/19 19:30 91 H 162/99 H 06/03/19 18:59 93 H 18 06/03/19 16:35 70 18 177/80 H 06/03/19 15:29 36.8 C 89 20 118/72 BP Pulse Ox 06/04/19 13:49 186/82 H 93 06/04/19 13:21 173/99 H 97 06/04/19 13:06 06/04/19 12:37 153/81 H 92 06/04/19 12:22 104/48 L 92 06/04/19 12:05 94/69 L 98 06/04/19 11:27 177/83 H 96 06/04/19 09:29 06/04/19 07:27 06/04/19 07:24 96 06/04/19 04:54 06/04/19 03:50 96 06/03/19 23:59 06/03/19 23:30 06/03/19 22:55 95 06/03/19 21:37 95 06/03/19 19:38 93 06/03/19 19:37 93 06/03/19 19:30 06/03/19 18:59 97 06/03/19 16:35 96 06/03/19 15:29 96 Transfer of Care Handoff Completed per policy Notes Mental Status: alert / awake / arousable Patient Amnestic to Procedure: Yes Nausea / Vomiting: adequately controlled Pain: adequately controlled Airway Patency, RR, SpO2: stable & adequate BP & HR: stable & adequate Hydration State: stable & adequate Anesthetic Complications: no major complications apparent and Pt Satisfied with anesthetic care
[2019-06-04] MEDS ORDERED: dilTIAZem HCL 30 MG TAB PO ONE (14:47)
--- NOTE | 2019-06-04 15:36 | Electrocardiogram Report ---
Test Reason : Blood Pressure : / mmHG Vent. Rate : 078 BPM Atrial Rate : 078 BPM P-R Int : 218 ms QRS Dur : 132 ms QT Int : 404 ms P-R-T Axes : 023 -28 126 degrees QTc Int : 460 ms Sinus rhythm with 1st degree A-V block Left ventricular hypertrophy with QRS widening and repolarization abnormality Abnormal ECG When compared with ECG of 03-JUN-2019 18:04, T wave inversion more evident in Lateral leads QT has shortened Confirmed by John Barraza ([id number]) on 06/04/2019 3:36:04 PM Referred By: Keara Matthews Confirmed By:John Barraza
[2019-06-04] MEDS: FERROUS SULFATE 325 MG TAB PO SCH (17:12)
[2019-06-04] MEDS: METOPROLOL SUCC 50MG EXT REL TAB PO SCH (17:16)
[2019-06-04] MEDS ORDERED: ATORVASTATIN 40 MG TAB PO SCH (21:00)
[2019-06-04] MEDS: OMEGA-3 (PURIFIED FISH OIL) 1 GM CAP PO SCH (21:08)
[2019-06-05] MEDS: RANOLAZINE 500 MG ER TAB PO SCH ×2 (00:07→12:11)
[2019-06-05] MEDS: NITROGLYCERIN 2% OINTMENT 30GM TUBE EXT SCH ×3 (00:08→12:12)
[2019-06-05] MEDS: INSULIN ASPART 100 UNITS/ML 3 ML PEN SC SCH ×2 (08:25→12:10)
[2019-06-05] MEDS: METOCLOPRAMIDE HCL 5 MG TABLET PO SCH ×2 (08:26→12:12)
[2019-06-05] MEDS: OMEGA-3 (PURIFIED FISH OIL) 1 GM CAP PO SCH (08:26)
[2019-06-05] MEDS: CARBIDOPA/LEVODOPA 25/100MG TAB PO SCH ×2 (08:26→12:11)
[2019-06-05] MEDS: ASCORBIC ACID 500 MG TAB PO SCH ×2 (08:26→12:12)
[2019-06-05] MEDS: METOPROLOL SUCC 50MG EXT REL TAB PO SCH (08:27)
[2019-06-05] MEDS: FERROUS SULFATE 325 MG TAB PO SCH ×2 (08:27→12:11)
[2019-06-05 08:29] LABS: Hematocrit (blood only) 35.7 % (42-52); Hemoglobin 11.9 g/dL (14.0-18.0); Mean Corpuscular Hemoglobin 29.8 pg (25-34); Mean Corpuscular Hgb Conc 33.3 g/dL (32-36); Mean Corpuscular Volume 89.3 fL (80-100); Mean Platelet Volume 8.8 fL (7.4-10.4); Platelet Count 168 K/uL (130-400); RDW Coefficient of Variation 12.9 % (11.5-14.5); RDW Standard Deviation 41.1 fL (36.4-46.3); White Blood Count 5.83 K/uL (4.8-10.8)
[2019-06-05] MEDS: ONDANSETRON INJ 2 MG/ML 2 ML VIAL IV PRN (08:37)
[2019-06-05 08:56] LABS: BUN Creatinine Ratio 14.1 (10-20); Calcium 9.3 mg/dl (8.5-10.1); Creatinine Clr Calc Pharmacy 48.5 ml/min; Est GFR (African American) 47.3; Est GFR (Non-African American) 40.8; Potassium 3.5 mmol/L (3.5-5.1)
[2019-06-05] MEDS ORDERED: dilTIAZem HCL 240 MG CAPCR PO SCH (09:00)
[2019-06-05] MEDS ORDERED: PANTOprazole 40 MG TAB PO SCH (09:00)
[2019-06-05] MEDS ORDERED: CYANOCOBALAMIN 500 MCG TABLET (VITAMIN B-12) PO SCH (09:00)
[2019-06-05] MEDS ORDERED: ASPIRIN 81 MG ECTAB PO SCH (09:00)
[2019-06-05] MEDS ORDERED: CALCIUM 600MG + VIT D 400 IU TAB PO SCH (09:00)
[2019-06-05] MEDS ORDERED: ISOSORBIDE MONO EXTENDED REL 60 MG TABCR PO SCH (09:00)
[2019-06-05] MEDS ORDERED: CLOPIDOGREL BISULFATE 75 MG TAB PO SCH (09:00)
[2019-06-05] MEDS ORDERED: TAMSULOSIN HCL 0.4 MG CAP PO SCH (09:00)
[2019-06-05] MEDS ORDERED: CEROVITE ADV FORMULA TAB PO SCH (09:00)
--- NOTE | 2019-06-05 09:19 | Cardiology Progress Note ---
Date of Service June 05, 2019 Assessment & Plan (1) Elevated troponin: Troponin level is trending down. Suspect this mild elevation was related to his episode of angina pectoris in the emergency room. Would simply continue medical management. (2) Coronary artery disease: Extensive history as described above. The patient has been deemed inoperable, and was also turned down for heart transplantation. Therefore, we will follow a medical management strategy. He is back on his usual outpatient regimen. Stable for hospital discharge. (3) Hypertension: Adequate control on current medical regimen. (4) Hyperlipidemia: Continue atorvastatin. Subjective The patient is resting comfortably in bed without complaints of chest pain, dyspnea, or palpitations. He is anxious for hospital discharge. Physical Exam Physical Exam: In general this is a well-developed well-nourished white male in no acute distress. HEENT exam is negative. Neck is supple with full carotid upstrokes. There are no carotid bruits. Jugular venous pressure is flat at 90. There is no thyromegaly. Cardiovascular exam reveals a regular rhythm with a normal S1-S2. Heart sounds are distant. No obvious murmurs. Chest reveals a well-healed midline scar. Lungs are clear without rales, rhonchi, or wheezes. Abdomen is soft and nontender without bruits. Extremities reveal intact radial artery and posterior tibial pulses bilaterally. There is no peripheral edema. Results & Data Vital Signs (Past 12 Hours) Vital Signs Temp Pulse Pulse Resp BP Pulse Ox 06/05/19 07:17 78 06/05/19 07:04 36.9 C 82 18 108/69 95 06/05/19 04:38 36.8 C 80 17 127/79 98 06/04/19 23:11 36.8 C 84 22 137/81 97 Laboratory Results gambling monitor notes normal sinus rhythm. PG Care Time/CCT Total # of Minutes Spent Total Time Spent with Patient: Total time spent is greater than 50% in coordination of care (as documented) at patient's floor/unit and/or counseling patient: (1) Hypertension Hypertension type: unspecified Qualified Code(s): I10 - Essential (primary) hypertension
--- NOTE | 2019-06-05 10:20 | Discharge Summary ---
Date of Service June 05, 2019 Admission HPI Per Admitting Provider Alok is a 63 y/o M with a PMH of HTN, hypercholesterolemia, type II DM, CAD s/p CABG, MIx5, angina pectoris, ischemic cardiomyopathy, systolic CHF, sleep apnea, Parkinson's disease, acid reflux, Mendoza's esophagus, iron deficiency anemia, CKD stage III, gastroparesis, BPH, and depression who presents to hematemesis. Spouse notes onset of vomiting this AM x 2 episodes that was very dark and sticky with concern for GI bleed. He notes he has had intermittent nausea and vomiting since [place]. He denies prior history of GI bleed. He notes he is on ASA and plavix. He denies any black/bloody stools, but was Hemoccult positive here in ED. While in ED, he had central chest pain x 1 episode that lasted for several minutes and was resolved with Nitro paste. He notes that pain was sharp and that his left arm "felt funny." He denies any shortness of breath. He notes still feeling Nauseous. His last meal was last night dinner he had chicken planks and curly fries. He notes he had diarrhea yesterday but no BM today. He denies abdominal pain currently but notes feeling heartburn earlier. He states he did take his medications today including his aspirin. He states he also took his long acting insulin today as well. No recent steroid use or other NSAIDs. Principal Diagnosis Nausea, vomiting, type II GA Discharge Exam Constitutional WD/WN, vitals as above Respiratory normal respiratory effort, lungs clear to auscultation Cardiovascular Heart Sounds: + murmur (holosystolic ) Gastrointestinal (Abdomen) Inspection/Auscultation: abdomen normal to inspection and normal bowel sounds; abdomen not distended Percussion/Palpation: abdomen soft; abdomen nontender Musculoskeletal no cyanosis or clubbing, extremities motor strength 5/5 Skin no rashes, warm and dry Neurologic moves all extremities and awake Psychiatric A+Ox3, euthymic affect Discharge Data Allergies Allergy/AdvReac Type Severity Reaction Status Date / Time glipizide Allergy Unknown Heart Verified 06/03/19 14:05 Palpatations. nabumetone Allergy Unknown "had drug Verified 06/03/19 14:05 intereaction with this" simvastatin AdvReac Unknown weakness Verified 06/03/19 14:05 Consultations 06/03/19 19:00 ED Decision to Admit Stat 06/03/19 22:51 Consult Gastroenterology Routine 06/03/19 23:09 Consult Cardiology Routine Procedures Performed Operation Date: 06/04/19 16:30 Actual Procedures p EGD Biopsy Cytology - Juan M Burton MD Ordered Studies 06/03/19 18:22 CT abd pelvis wo con Stat Hospital Course (1) Hematemesis: GI performed EGD 06/04 without any s/s of old or active bleeding CT abd/pelvis without abnormality No further nausea or vomiting, hbg has been stable for over 24 hours (2) Elevated troponin: Type II GA in the setting of acute illness and acute systolic CHF Peaked at 0.105 and trending down. In the ED patient had anterior ST depressions that resolved with nitro Per cardiology, patient has significant cardiac history that is inoperable, will continue with current cardiovascular regimen Continue ASA and plavix as no bleeding was seen on EGD (3) Coronary artery disease: As above - continue ASA, plavix, statin, metoprolol, ranolazine, isosorbide, (4) Barretts esophagus: Continue ppi (5) Benign prostate hyperplasia: Continue home tamsulosin (6) Chronic kidney disease: avoid nephrotoxins where possible At baseline which is around 1.9 (7) Chronic systolic congestive heart failure: Acute on chronic systolic CHF treated with IV Lasix with resolved ischemic cardiomyopathy with EF previously 30-40%, most recently 55-60% August 2015. Pulmonary edema on admission Given 40 mg IV lasix x1 Monitor Is&Os, daily weights Will hold off on further diuresis (8) Parkinsons disease: continue Sinemet (9) Hyperlipidemia: Continue statin (10) Hypertension: Continue diltiazem, metoprolol, (11) Type 2 diabetes mellitus with insulin therapy: Bsgs ac & hs SS, lantus (12) Gastroparesis: Per GI rec - Reglan 5 mg tid before meals, low fat/low fiber diet (13) DVT prophylaxis: SCDs Total Time Total Time Spent Total Time Spent (In Minutes): greater than 30 minutes Discharge Plan Discharge Items Patient Disposition: Home - Self-Care Reason For Visit: HEMATEMESIS Discharge Diagnosis: hematemesis Activity: Resume your previous activity Activity Comment: gradually as tolerated Non-emergency contact: Primary Care Provider Call non-emergency contact if: you have any medication questions and your symptoms worsen Follow-up/Referrals: John Barraza MD [Physician] - 06/18/19 11:30 am (Previously scheduled appointment.) Tia Dave CRNP [Nurse Practitioner] - 06/10/19 2:15 pm (Hospital follow- up at PCP office.) Diet: Carb Consistent or DM2, Heart Healthy, Low Fiber and Low Fat Addtl Attending Provider Instructions: (1) Hematemesis: GI did not see any signs of bleeding dureing your EGD. You should continue your home pantoprazole Advance your diet as you can tolerate GI recommends you take your Reglan 5 mg before meals, three times per day (3) Coronary artery disease: While you were here, you troponin level was elevated and trended back down indicated some oxygen depravation or mild injury to your heart during your chest pain event. You were seen by Dr. Barraza and he feels you should continue your medications as ordered. Please follow up with Dr. Barraza in the next wekk. Continue aspirin, Plavix, statin, metoprolol, ranolazine, isosorbide (4) Chronic systolic congestive heart failure: Your chest xray did show some congestion in your lungs from fluid retention. You were given 1 dose of lasix to help pull that fluid off. Congestive Heart Failure: Discharge Instructions Congestive Heart Failure essentially means your heart is able to have a "traffic jam" of fluid that backs up into your lungs. Fluid in lungs then blocks up breathing space making you feel short of breath. In the hospital, our job is to get the fluid off so that you are able to breathe better, and then get you back on track with medication and lifestyle adjustments to keep the traffic jam from happening again. Salt (Sodium) The vast majority of people admitted to the hospital with fluid back up into the lungs get there because of too much salt in their diet. The way our kidneys work: when you take a small amount of sodium, your kidneys hold onto a small amount of water. When you take a large amount of sodium, your kidneys hold onto a large amount of water. When this happens, your blood vessels get flooded, your heart gets overfilled, and the fluid backs up into your lungs. Most people know to avoid the salt shaker, but sodium is in almost anything prepackaged/prepared, as a preservative or as a flavoring agent. Most of the people we take care of who are here with congestive heart failure caused by too much sodium do not use a salt shaker at all. Get into the habit of looking at food labels, so you can see how much sodium is in the foods you eat. The most important number to look at is how much sodium is in each serving. But also notice the size of a serving. [employer] will frequently make a serving size so tiny that it does not look like there is much sodium per serving, but a normal person might eat 3 or 4 servings of the food and take in a lot more sodium than they realized. Keep a "budget" of how much sodium you take in in each day. Most people stay out of trouble and stay out of the hospital as long as they stay "under budget". The majority of congestive heart failure patients do well if they take less than 2000 mg of sodium a day. Because our kidneys retain water based on how much sodium they are seeing in any given moment, it is also important to stay at less than about 500 mg in any given meal. This is because even if you stayed at less than 2000 mg of sodium, but ate it all at once, your kidneys would retain fluid at a rate as though you are taking in much more sodium than you actually are. Occasionally your doctor may specifically recommend restricting even further (such as less than 1500mg per day) so if you have been told to be even stricter with sodium, please follow that advice. -Following How You Are Doing (Wet Versus Dry) Because managing congestive heart failure is an ongoing process, it is very important to learn how to follow your signs and symptoms and track how you are doing at home. This will allow you to catch problems before they become a big deal. In general, as your health care team, we look at managing congestive heart failure chronically as a balance of being "wet" (flooded with fluid) v ersus being "dry" (dehydrated from treatment). Wet - signs of fluid retention that would warrant further evaluation: Check your weight daily. If your weight goes up by more than 2 pounds in 1 day, it is almost certainly fluid related. This should warrant further thought, and/or a call to your doctor Follow your breathingmost of the time, early on when fluid backs up into your lungs, you will first start to notice shortness of breath when walking, or when lying flat. If you notice either of these, this should warrant further thought, and/or a call to your doctor If you notice both an increase in weight and worsening breathing, that definitely warrants getting seen as soon as possible "Dry"while the goal of managing the disease is to keep you from getting "wet, the medications can sometimes cause a degree of dehydration. Most people with congestive heart failure need frequent lab work (basic metabolic panel). Generally when there has been a change in diuretic dosing (a change in the water pill) or any other major changes, lab work should be followed closely and more frequently afterwards. This is because lab work will frequently show early signs of dehydration before you start to feel bad. Frequent symptoms of being dehydrated include: feeling weak and lightheaded, having lower blood pressures, making less urine than usual, or having a very dry mouth. If you notice any of these signs/symptoms, and you are not due for lab work, it would be quite reasonable to call your doctor to see if lab work or a visit could be arranged. Heart Failure Management Checklist: Limit Salt (Sodium) Intake to 2000mg (2g) per day and 500mg (0.5g) per meal Check weight daily (in same clothes, without shoes) every morning Use the provided chart to enter your weight and salt intake for the day Are you too wet? If you gained 2lb or more - make sure to take your water pill If your breathing is not good (you are more short of breath than usual) call your doctor regardless of weight change If you gained 2lb or more and you are short of breath, see your doctor or come to the emergency room Are you too dry? If you feel weak or lightheaded, have lower blood pressures, make less urine than usual, or have a very dry mouth. Call your doctor Pending Studies at Discharge: No Stand-Alone Forms: [employer], Smoking Cessation Medications and DC Order Prescriptions: New metoclopramide HCl 5 mg Tablet 5 mg PO TID Qty: 90 RF: 0 Continued ranolazine 1,000 mg tablet extended release 12 hr 1,000 mg PO Q12H Qty: 180 RF: 3 Lantus Solostar U-100 Insulin 100 unit/mL (3 mL) insulin pen 40 units subcut DAILY Qty: 15 RF: 5 diltiazem HCl 120 mg capsule,extended release 24hr 240 mg PO DAILY Qty: 180 RF: 3 carbidopa-levodopa 25-100 mg tablet 1 tab PO TID 90 Days Qty: 270 RF: 1 metoprolol succinate 100 mg tablet extended release 24 hr 100 mg PO BID Qty: 180 RF: 1 atorvastatin 80 mg tablet 80 mg PO HS Qty: 90 RF: 3 tamsulosin 0.4 mg capsule 0.4 mg PO DAILY Qty: 90 RF: 3 (DME) OneTouch Verio strip See Dose Instructions .ROUTE .MEDSUPPLY Qty: 10 RF: 0 (DME) pen needle, diabetic 30 gauge x 1/3" needle See Dose Instructions .ROUTE .MEDSUPPLY Qty: 1 RF: 0 nitroglycerin 0.4 mg tablet, sublingual 0.4 mg sublingual DIRECTED PRN (Reason: Chest Pain) Qty: 20 RF: 5 clopidogrel 75 mg tablet 75 mg PO QAM RF: 0 cyanocobalamin (vitamin B-12) [Vitamin B-12] 1,000 mcg Tablet 1,000 mcg PO QAM RF: 0 aspirin 81 mg Tablet,Delayed Release (Dr/Ec) 81 mg PO QAM RF: 0 ascorbic acid (vitamin C) [Vitamin C] 500 mg Tablet 500 mg PO TID RF: 0 ferrous sulfate 325 mg (65 mg iron) Tablet 325 mg PO TIDM RF: 0 calcium carbonate-vitamin D3 [Calcium 600 + D(3)] 600 mg(1,500mg) -400 unit Tablet 1 tab PO QAM RF: 0 omega 2-psf-oqj-fish oil [Fish Oil] 1,000 mg (120 mg-180 mg) Capsule 1 cap PO BID RF: 0 Centrum Silver Men 300-600-300 mcg Tablet 1 tab PO QAM RF: 0 insulin aspart U-100 [Novolog Flexpen U-100 Insulin] 100 unit/mL (3 mL) Insulin Pen See Rx Instructions .ROUTE .COMPLEX RF: 0 isosorbide mononitrate 60 mg tablet extended release 24 hr 120 mg PO QAM RF: 0 pantoprazole 40 mg tablet,delayed release (DR/EC) 40 mg PO QAM RF: 0 Discontinued metoclopramide HCl 10 mg tablet 10 mg PO BID Qty: 180 RF: 0 Discharge Orders: Discharge Order (Routine); Ordered 06/05/19 Ordered By: Adelita New Admission Data Admit Date/Time: 06/03/19 20:41 Attending Provider: Asael Fregoso Admit Provider: Edu Samaniego Primary Care Provider: Jamar Avery III Other Providers: Juan M Burton ; Dean Aponte ; Asael Fregoso Other Interventions: Discharge Summary Assessment (RN) Last Done: 06/04/19 12:59 DC Date/Time DO NOT enter until pt leaves facility: 06/05/19 13:13 Supervising Physician Co-Signing Physician Notes I supervised Adelita New NP on this patient's care. I examined the patient today independently of her. I discussed the plan of care with her with the plan being as written in her note except for any following changes/exceptions: None. No further hematemesis. No chest pain this morning.
--- NOTE | 2019-06-06 03:00 | Billing Data ---
Date of Service June 06, 2019 Coding Level of Care Code 52419 Initial Inpt Care Lvl 3
== END 2019-06-05 13:13 | disposition home or self-care (01) | DRG 377 ==
LOC: ED 15:04 → SUATTDRO 20:41 → 2S 20:41

== ENCOUNTER 2022-02-09 01:59 | Observation (INO) ==
--- NOTE | 2022-02-09 02:19 | Emergency Department Note ---
Impression & Plan Elevated troponin ADMIT ED Provider Note HPI: The patient is a 66-year-old gentleman with history of coronary artery disease, status post CABG in 2003, presents the emergency department with a chief complaint of chest pain that is been ongoing throughout the day today. Patient states that he has had chest pain since early this morning, states it has been slightly worsening throughout the day and therefore he did mention this to his and came to the emergency department for further assessment. On arrival, patient is status post nitroglycerin and aspirin via EMS, he states his chest pain is now improved. Patient is hemodynamically stable on arrival, he is in no acute distress on my initial evaluation and he is saturating well on room air. ROS: -Cardio: Chest pain *10 point review systems was conducted and is otherwise negative unless stated above *Outpatient medications and allergy history reviewed PE: General: Alert, NAD HEENT: Normocephalic, atraumatic Eyes: Extraocular eye movement is intact, no scleral erythema Pulmonary: Clear to auscultation bilaterally, no wheezing Cardio: Regular rate and rhythm GI: Abdomen is soft, nontender : No suprapubic tenderness MSK: No evidence of trauma or malformation of the extremities, no edema Skin: No evidence of rash Neuro: Alert, no focal deficits Psychiatric: Cooperative monitoring specialist: - An order was placed for continuous cardiac monitoring - Patient was noted to be in sinus rhythm with a rate of 85 EKG: Rate: 80 Rhythm: Sinus rhythm Intervals: CA interval prolonged at 268 ms, QRS 136 ms, QTC 461 ST changes: No ST elevation Time: 0203 Medical Decision Making: Patient arrived to the emergency department with his symptoms largely resolved following nitroglycerin via EMS. Patient complained of some substernal chest pain that been ongoing throughout the day, he does have a history of coronary artery disease and has previously had CABG performed in 2003. IV was establ ished, lab work obtained, patient was placed on monitoring specialist, lab work does show an elevated high-sensitivity troponin level of 174, EKG does not show any evidence of ST elevation MO, there is some depression in the lateral leads noted however this does appear similar morphology to his previous EKGs in our system. Patient's lab work otherwise shows baseline anemia, COVID-19 testing was obtaine d and is positive. Chest x-ray does not show any acute process per my interpretation. Patient is currently asymptomatic on my reevaluation prior to admission. Patient will be admitted to the [facility] hospitalist service, he was started on heparin drip given his elevated troponin. On my reassessment prior to admission patient remains chest pain-free. He is in agreement to the above plan and he was admitted in stable condition for further care. * CRITICAL CARE TIME: 35min -Evaluation of patient with chest pain, history of coronary artery disease, elevated troponin without ST elevation on EKG requiring initiation of heparin drip, time spent at the bedside, interpretation of diagnostic studies including EKG, arrangement of admission Diagnosis: 1. Chest pain 2. Elevated troponin 3. History of coronary artery disease 4. COVID 19 infection Disposition: Admission Karthik Joe DO Emergency Medicine Past Med/Surg History Medical History Arteriosclerotic vascular disease (07/04/11) Barretts esophagus Benign prostate hyperplasia Chronic kidney disease Chronic systolic congestive heart failure Complex sleep apnea syndrome Coronary artery disease (07/04/11) Depression Diverticulosis Fatigue Gastroparesis (12/16/12) Hiatal hernia History of myocardial infarction Hyperlipidemia (07/04/11) Hypertension Ischemic cardiomyopathy On anticoagulant therapy Parkinsons disease Peripheral vascular disease (07/04/11) SOB (shortness of breath) on exertion Type 2 diabetes mellitus with insulin therapy Surgical History History of cardiac catheterization History of colonoscopy (04/16/17) History of esophagogastroduodenoscopy (EGD) History of open reduction and internal fixation (ORIF) procedure History of repair of hiatal hernia Hx of cholecystectomy S/P coronary artery bypass graft x 4 (07/04/11) Family History Mother Family history of diabetes mellitus Coronary heart disease Father Family history of esophageal cancer Coronary heart disease Uncle Myocardial infarction Brother Myocardial infarction Other Diabetes No family history of adverse response to anesthesia No significant family history Denies family history of Ovarian cancer Prostate cancer Breast cancer Colorectal cancer Social History Smoking Status: Never smoker Tobacco Type: Cigarettes Age Started Using Tobacco: 16; Age Quit Using Tobacco: 28; packs per day: 1; Years Smoked: 12; Number of Years Since Quit: 36; Second Hand Exposure: No; Hx Alcohol Use: Yes Alcohol Intake Frequency: Monthly or Less Hx Substance Use: No Preferred Language: Chinese Communication Ability: Effective Visual Impairment: No Limitations Hearing Ability: Normal Thread Reeler Required: No Beliefs That Will Affect Care: None marital status: Current Living Situation: Spouse current occupational status: retired Feels Safe at Home: Yes Childhood Exposure to Second-Hand Smoke: No caffeine: No Dental Care, Regularly: No Physical Activity Frequency: Does not Exercise Seatbelt Use: always Sunscreen Use: No Assistive Devices: CPAP and Glasses Allergies Allergies Allergy/AdvReac Type Severity Reaction Status Date / Time glipizide Allergy Severe Heart Verified 02/08/22 08:50 Palpatations. nabumetone AdvReac Severe "had drug Verified 02/08/22 08:50 intereaction with this" simvastatin AdvReac Mild weakness Verified 02/08/22 08:50 Home Meds Home Medications Medication Instructions Recorded Confirmed aspirin 81 mg tablet,delayed 81 mg PO QAM 08/17/18 02/09/22 release calcium carbonate 600 mg-vitamin 1 tab PO QAM 08/17/18 02/09/22 D3 10 mcg (400 unit) tablet (Calcium 600 + D(3)) cyanocobalamin (vitamin B-12) 1,000 mcg PO QAM 08/17/18 02/09/22 1,000 mcg tablet (Vitamin B-12) ferrous sulfate 325 mg (65 mg 325 mg PO TIDM 08/17/18 02/09/22 iron) tablet nxwbglys-ioa-apzhn acid 300 1 tab PO QAM 08/17/18 02/09/22 mcg-lycopene 600 mcg-lutein 300 mcg tablet (Centrum Silver Men) omega 7-dvp-fhi-fish oil 1,000 mg 1 cap PO BID 08/17/18 02/09/22 (120 mg-180 mg) capsule (Fish Oil) blood sugar diagnostic (OneTouch #10 ea 06/10/20 02/09/22 Verio test strips) pen needle, diabetic 30 gauge x ##1 06/10/20 02/09/22 1/3" clopidogrel 75 mg tablet 75 mg PO QAM 05/16/21 02/09/22 blood-glucose meter,continuous 08/01/21 02/09/22 (Dexcom G6 [employer] misc) blood-glucose sensor (Dexcom G6 08/01/21 02/09/22 Sensor device) blood-glucose transmitter (Dexcom 08/01/21 02/09/22 G6 Transmitter device) pantoprazole 40 mg tablet,delayed 40 mg PO QAM 08/08/21 02/09/22 release sertraline 100 mg tablet 100 mg PO DAILY 02/09/22 02/09/22 Previous Rx's Medication Instructions Recorded insulin aspart U-100 100 unit/mL 15 unit (0.15 mL) subcut TIDM #45 12/31/20 (3 mL) subcutaneous pen (Novolog mL Flexpen U-100 Insulin aspart) atorvastatin 80 mg tablet 80 mg PO HS #90 tabs 05/31/21 tamsulosin 0.4 mg capsule 0.4 mg PO QAM #90 caps 08/19/21 metoprolol succinate 100 mg 100 mg PO BID #180 tabs 09/23/21 tablet,extended release 24 hr famotidine 20 mg tablet 20 mg PO BID #180 tabs 10/18/21 furosemide 80 mg tablet 80 mg PO QAM #90 tabs 10/18/21 isosorbide mononitrate 60 mg 180 mg PO QAM #270 tabs 10/18/21 tablet,extended release 24 hr metoclopramide HCl 10 mg tablet 10 mg PO BID #60 tabs 10/18/21 (Reglan) sennosides 8.6 mg-docusate sodium 1 tab-cap PO DAILY PRN 11/17/21 50 mg tablet (Colace 2-In-1) Constipation #30 tabs ranolazine 1,000 mg 1,000 mg PO Q12H #180 tabs 11/30/21 tablet,extended release,12 hr diltiazem HCl 120 mg 240 mg PO QAM #180 caps 12/01/21 capsule,extended release 24 hr ergocalciferol (vitamin D2) 1,250 1,250 mcg PO .weekly #24 caps 01/17/22 mcg (50,000 unit) capsule Lantus Solostar U-100 Insulin 100 40 unit (0.4 mL) subcut QAM 90 01/23/22 unit/mL (3 mL) subcutaneous pen days #45 mL (insulin glargine) dapagliflozin 10 mg tablet 10 mg PO DAILY #90 tabs 02/08/22 (Farxiga) nitroglycerin 0.4 mg sublingual 0.4 mg sublingual DIRECTED PRN 02/08/22 tablet Chest Pain #20 tabs Results & Data (ED) Vital Signs Vital Signs - 24 hr 02/09/22 02:05 02/09/22 02:03 02/09/22 02:09 Temperature 37.5 C Temperature Source Oral Pulse Rate 75 76 Pulse Rate from SpO2 Sensor 76 Pulse Rhythm Irregular Pulse Strength Normal Respiratory Rate 17 24 Respiratory Effort / Characteristics Non-Labored Spontaneous Non-Labored Spontaneous SOB on Exertion Respiratory Depth Normal Normal Respiratory Pattern Regular Blood Pressure 139/68 Blood Pressure Mean 91 Pulse Oximetry 93 92 Oxygen Delivery Method Room Air Sepsis Recent Fever Within 48 Hours No Sepsis New/Unexplained Change in Mental Status N/A Sepsis Action Taken by Nursing No Action Required 02/09/22 02:30 02/09/22 03:00 Temperature Temperature Source Pulse Rate 74 72 Pulse Rate from SpO2 Sensor 74 72 Pulse Rhythm Pulse Strength Respiratory Rate 24 24 Respiratory Effort / Characteristics Respiratory Depth Respiratory Pattern Blood Pressure 132/63 139/69 Blood Pressure Mean 86 92 Pulse Oximetry 91 91 Oxygen Delivery Method Sepsis Recent Fever Within 48 Hours Sepsis New/Unexplained Change in Mental Status Sepsis Action Taken by Nursing Laboratory Data Result diagrams: 02/09/22 01:35 02/09/22 01:35 Lab Results 02/09/22 02/09/22 02/09/22 Range/Units 01:35 01:35 01:35 WBC 4.65 L (4.8-10.8) K/ul RBC 3.37 L (4.63-6.08) M/uL Hgb 9.8 L (14.0-18.0) g/dl Hct 29.7 L (40.1-51.0) % MCV 88.1 (80.0-100.0) fL MCH 29.1 (25.0-34.0) pg MCHC 33.0 (32.0-36.0) g/dL RDW Std Deviation 41.4 (36.4-46.3) fL RDW Coeff of Min 13.0 (11.5-14.5) % Plt Count 134 (130-400) K/uL MPV 9.4 (9.4-12.4) fL Immature Gran % (Auto) 1.3 % Neut % (Auto) 71.5 % Lymph % (Auto) 12.0 % Dolores % (Auto) 14.6 % Eos % (Auto) 0.2 % Baso % (Auto) 0.4 % Neut # (Auto) 3.32 (1.4-6.5) K/uL Lymph # (Auto) 0.56 L (1.2-3.4) K/uL Dolores # (Auto) 0.68 (0.24-0.82) K/uL Eos # (Auto) 0.01 (0-0.50) K/uL Baso # (Auto) 0.02 (0-0.2) K/uL Immature Gran # (Auto) 0.06 H (0.00-0.02) K/uL PT Cancelled INR Cancelled APTT Cancelled PTT Ratio Cancelled Sodium 136 (136-145) mmol/L Potassium 3.2 L (3.5-5.1) mmol/L Chloride 102 (98-107) mmol/L Carbon Dioxide 20 L (21-32) mmol/L Anion Gap 14 H (3-11) BUN 33 H (6-23) mg/dl Creatinine 2.00 H D (0.6-1.4) mg/dl Est Cr Clr Drug Dosing 42.0 ml/min Est GFR ( Amer) 38.6 ml/min Est GFR (Non-Af Amer) 33.3 ml/min BUN/Creatinine Ratio 16.5 (10-20) Glucose 268 H (70-99(Fasting)) mg/dl Calcium 8.6 (8.5-10.1) mg/dl Total Bilirubin 1.0 (0.2-1.0) mg/dl AST 36 (13-39) U/L ALT 39 (7-52) U/L Alkaline Phosphatase 26 L (34-104) U/L Troponin I High Sens 172.2 H* (0-20) pg/ml Total Protein 6.5 (6.0-8.3) gm/dl Albumin 3.6 (3.4-5.0) gm/dl Globulin 2.9 (2.5-4.0) gm/dl Albumin/Globulin Ratio 1.2 (0.9-2) Lipase 53 (11-82) U/L SARS-CoV-2, RNA, NAAT (NEGATIVE) 09/15/22 Range/Units Unknown WBC (4.8-10.8) K/ul RBC (4.63-6.08) M/uL Hgb (14.0-18.0) g/dl Hct (40.1-51.0) % MCV (80.0-100.0) fL MCH (25.0-34.0) pg MCHC (32.0-36.0) g/dL RDW Std Deviation (36.4-46.3) fL RDW Coeff of Min (11.5-14.5) % Plt Count (130-400) K/uL MPV (9.4-12.4) fL Immature Gran % (Auto) % Neut % (Auto) % Lymph % (Auto) % Dolores % (Auto) % Eos % (Auto) % Baso % (Auto) % Neut # (Auto) (1.4-6.5) K/uL Lymph # (Auto) (1.2-3.4) K/uL Dolores # (Auto) (0.24-0.82) K/uL Eos # (Auto) (0-0.50) K/uL Baso # (Auto) (0-0.2) K/uL Immature Gran # (Auto) (0.00-0.02) K/uL PT INR APTT PTT Ratio Sodium (136-145) mmol/L Potassium (3.5-5.1) mmol/L Chloride (98-107) mmol/L Carbon Dioxide (21-32) mmol/L Anion Gap (3-11) BUN (6-23) mg/dl Creatinine (0.6-1.4) mg/dl Est Cr Clr Drug Dosing ml/min Est GFR ( Amer) ml/min Est GFR (Non-Af Amer) ml/min BUN/Creatinine Ratio (10-20) Glucose (70-99(Fasting)) mg/dl Calcium (8.5-10.1) mg/dl Total Bilirubin (0.2-1.0) mg/dl AST (13-39) U/L ALT (7-52) U/L Alkaline Phosphatase (34-104) U/L Troponin I High Sens (0-20) pg/ml Total Protein (6.0-8.3) gm/dl Albumin (3.4-5.0) gm/dl Globulin (2.5-4.0) gm/dl Albumin/Globulin Ratio (0.9-2) Lipase (11-82) U/L SARS-CoV-2, RNA, NAAT POSITIVE A* (NEGATIVE) Discharge Plan Visit Data Chief Complaint: Chest Pain Stated Complaint: chest pain ED Provider: Karthik Joe Discharge Problem: Elevated troponin Patient Disposition: Admitted As Inpatient Forms Stand Alone Forms: [facility] Prescriptions Prescriptions: No Action insulin aspart U-100 [Novolog Flexpen U-100 Insulin] 100 unit/mL (3 mL) insulin pen 15 unit subcut TIDM Qty: 45 3RF Rx Instructions: 45 units subcut daily; atorvastatin 80 mg tablet 80 mg PO HS Qty: 90 3RF tamsulosin 0.4 mg capsule 0.4 mg PO QAM Qty: 90 3RF metoprolol succinate 100 mg tablet extended release 24 hr 100 mg PO BID Qty: 180 3RF metoclopramide HCl [Reglan] 10 mg tablet 10 mg PO BID Qty: 60 5RF Rx Instructions: 10 mg PO BID famotidine 20 mg tablet 20 mg PO BID Qty: 180 3RF furosemide 80 mg tablet 80 mg PO QAM Qty: 90 3RF isosorbide mononitrate 60 mg tablet extended release 24 hr 180 mg PO QAM Qty: 270 3RF sennosides-docusate sodium [Colace 2-In-1] 8.6-50 mg tablet 1 tab-cap PO DAILY PRN (Reason: Constipation) Qty: 30 2RF diltiazem HCl 120 mg capsule,extended release 24hr 240 mg PO QAM Qty: 180 3RF ergocalciferol (vitamin D2) 1,250 mcg (50,000 unit) capsule 1,250 mcg PO .weekly Qty: 24 0RF insulin glargine [Lantus Solostar U-100 Insulin] 100 unit/mL (3 mL) insulin pen 40 unit subcut QAM 90 Days Qty: 45 1RF clopidogrel 75 mg tablet 75 mg PO QAM Farxiga 10 mg tablet 10 mg PO DAILY Qty: 90 3RF nitroglycerin 0.4 mg tablet, sublingual 0.4 mg sublingual DIRECTED PRN (Reason: Chest Pain) Qty: 20 5RF Rx Instructions: PLACE ONE TABLET UNDER THE TONGUE EVERY 5 MINUTES FOR UP TO 3 DOSES OVER 15 MINUTES IF NEEDED FOR CHEST PAIN ranolazine 1,000 mg tablet extended release 12 hr 1,000 mg PO Q12H Qty: 180 3RF (DME) OneTouch Verio test strips Strip See Rx Instructions .ROUTE .MEDSUPPLY Qty: 10 Rx Instructions: test 2 times daily (DME) pen needle, diabetic 30 gauge x 1/3" needle See Rx Instructions .ROUTE .MEDSUPPLY Qty: 1 Rx Instructions: use 4 needles daily (DME) Dexcom G6 Sensor Device See Rx Instructions .Route Rx Instructions: As directed (DME) Dexcom G6 [employer] Misc See Rx Instructions .Route Rx Instructions: As directed (DME) Dexcom G6 Transmitter Device See Rx Instructions .Route Rx Instructions: As directed cyanocobalamin (vitamin B-12) [Vitamin B-12] 1,000 mcg Tablet 1,000 mcg PO QAM aspirin 81 mg Tablet,Delayed Release (Dr/Ec) 81 mg PO QAM ferrous sulfate 325 mg (65 mg iron) Tablet 325 mg PO TIDM calcium carbonate-vitamin D3 [Calcium 600 + D(3)] 600 mg(1,500mg) -400 unit Tablet 1 tab PO QAM omega 5-klb-rnx-fish oil [Fish Oil] 1,000 mg (120 mg-180 mg) Capsule 1 cap PO BID Centrum Silver Men 300-600-300 mcg Tablet 1 tab PO QAM pantoprazole 40 mg tablet,delayed release (DR/EC) 40 mg PO QAM Rx Instructions: TAKE ONE TABLET BY MOUTH ONCE DAILY, 30 MINUTES BEFORE BREAKFAST. sertraline 100 mg tablet 100 mg PO DAILY Referrals Referrals: Jamar Avery III, MD [Physician] -
[2022-02-09 02:36] LABS: Basophils # (auto) 0.02 K/uL (0-0.2); Basophils % (auto) 0.4 %; Eosinophils # (auto) 0.01 K/uL (0-0.50); Eosinophils % (auto) 0.2 %; Hematocrit (blood only) 29.7 % (40.1-51.0); Hemoglobin 9.8 g/dl (14.0-18.0); Immature Granulocytes # (auto) 0.06 K/uL (0.00-0.02); Immature Granulocytes % (auto) 1.3 %; Lymphocytes # (auto) 0.56 K/uL (1.2-3.4); Mean Corpuscular Hemoglobin 29.1 pg (25.0-34.0); Mean Corpuscular Volume 88.1 fL (80.0-100.0); Mean Platelet Volume 9.4 fL (9.4-12.4); Monocytes # (auto) 0.68 K/uL (0.24-0.82); Monocytes % (auto) 14.6 %; Neutrophils # (auto) 3.32 K/uL (1.4-6.5); Neutrophils % (auto) 71.5 %; Platelet Count 134 K/uL (130-400); RDW Standard Deviation 41.4 fL (36.4-46.3); Red Blood Count 3.37 M/uL (4.63-6.08); White Blood Count 4.65 K/ul (4.8-10.8)
[2022-02-09 03:09] LABS: Albumin Globulin Ratio 1.2 (0.9-2); Albumin Level 3.6 gm/dl (3.4-5.0); BUN Creatinine Ratio 16.5 (10-20); Calcium 8.6 mg/dl (8.5-10.1); Est GFR (African American) 38.6 ml/min; Est GFR (Non-African American) 33.3 ml/min; Globulin 2.9 gm/dl (2.5-4.0); Potassium 3.2 mmol/L (3.5-5.1); Total Protein 6.5 gm/dl (6.0-8.3); Troponin I High Sensitivity 172.2 pg/ml (0-20)
[2022-02-09] MEDS ORDERED: Heparin IV Adult Wt-Based Standard WITH Bolus Protocol IV STA (03:11)
[2022-02-09] MEDS ORDERED: HEPARIN SOD (PORCINE) 1000 UNIT/ML IV ONE (03:26)
--- NOTE | 2022-02-09 03:47 | History & Physical Report ---
Date of Service February 09, 2022 Assessment & Plan (1) COVID-19 virus infection: Plan: COVID-19 virus infection- Suspect physiologic stress is responsible in part for cardiac state Patient had generalized weakness over the previous [address] on dexamethasone 6 mg IV now and then every morning Vitamin D 125 mcg p.o. every morning Nasal cannula oxygen, titrate to keep pulse ox 94-95% (2) NSTEMI (non-ST elevated myocardial infarction): Plan: NSTEMI/acute CHF/CAD/ischemic cardiomyopathy- The patient will be admitted to telemetry for serial cardiac enzymes, serial EKG's, cardiac rhythm monitoring and a 2-D echocardiogram with Dopplers. Troponin 172.2 on admission, ordered follow-up series Continue heparin drip IV per protocol Dietary discretion with excessive sodium over the past 3 days is likely that the acute CHF Give furosemide 40 mg IV now and every morning Continue clopidogrel, aspirin, diltiazem, isosorbide mononitrate, metoprolol succinate, ranolazine and nitroglycerin sublingual as needed Consult cardiology (3) Acute CHF (congestive heart failure): Plan: See above (4) Coronary artery disease: Plan: See above (5) Ischemic cardiomyopathy: Plan: See above (6) Uncontrolled diabetes mellitus with circulatory complication, with long-term current use of insulin: Plan: See above (7) Uncontrolled type 2 diabetes mellitus with diabetic neuropathy: Plan: Diabetes mellitus uncontrolled/diabetic neuropathy/long-term use of insulin- Continue insulin glargine 40 units subcu daily every morning Place on Accu-Cheks before meals and at bedtime with NovoLog coverage per scale Follow blood sugars closely while getting IV dexamethasone (8) Chronic kidney disease: Plan: Creatinine 2.00 on admission, with range 2.35-3.17 Likely a sign of fluid overload Follow serially with diuresis (9) Acid reflux disease: Plan: GERD/Mendoza's esophagus- Continue famotidine, metoclopramide and pantoprazole (10) Barretts esophagus: Plan: See above (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 Primary Care Provider: Edu Samaniego DO The patient is a 66-year-old male with a past medical history including diabetes mellitus, GERD, uncontrolled diabetes mellitus type 2, diabetic polyneuropathy, long-term use of insulin, anemia, sleep-wake schedule disorder, delayed phase type, depression, Mendoza's esophagus, BPH, CKD, CAD, complex sleep apnea syndrome, hiatal hernia, hyperlipidemia, ischemic cardiomyopathy, Parkinson's disease, peripheral vascular disease and arteriosclerotic vascular disease. Patient reports that yesterday he was tired for most of the day, and was having intermittent issues with chest discomfort, of which he did not tell his or family. He as noted was awoken from sleep by chest pain and shortness of breath , and presents to the ED for assessment. Over the past 3 days, he has been attempting to take care of his , who is sick with a sinus infection, and had provided a significantly higher salt load of Turkmen food, hoagies, lunch meat and another salty meal. He has noted increased lower extremity edema over these past 3 days as well. Allergies Allergy/AdvReac Type Severity Reaction Status Date / Time glipizide Allergy Severe Heart Verified 02/08/22 08:50 Palpatations. nabumetone AdvReac Severe "had drug Verified 02/08/22 08:50 intereaction with this" simvastatin AdvReac Mild weakness Verified 02/08/22 08:50 Home Medications Medication Instructions Recorded Confirmed Type aspirin 81 mg tablet,delayed 81 mg PO QAM 08/17/18 02/09/22 History release calcium carbonate 600 mg-vitamin 1 tab PO QAM 08/17/18 02/09/22 History D3 10 mcg (400 unit) tablet (Calcium 600 + D(3)) cyanocobalamin (vitamin B-12) 1,000 mcg PO QAM 08/17/18 02/09/22 History 1,000 mcg tablet (Vitamin B-12) ferrous sulfate 325 mg (65 mg 325 mg PO TIDM 08/17/18 02/09/22 History iron) tablet akdbuuhu-qqq-uqgrp acid 300 1 tab PO QAM 08/17/18 02/09/22 History mcg-lycopene 600 mcg-lutein 300 mcg tablet (Centrum Silver Men) omega 8-rzt-xfl-fish oil 1,000 mg 1 cap PO BID 08/17/18 02/09/22 History (120 mg-180 mg) capsule (Fish Oil) blood sugar diagnostic (OneTouch #10 ea 06/10/20 02/09/22 History Verio test strips) pen needle, diabetic 30 gauge x ##1 06/10/20 02/09/22 History 1/3" insulin aspart U-100 100 unit/mL 15 unit (0.15 mL) subcut TIDM #45 12/31/20 02/09/22 Rx (3 mL) subcutaneous pen (Novolog mL Flexpen U-100 Insulin aspart) clopidogrel 75 mg tablet 75 mg PO QAM 05/16/21 02/09/22 History atorvastatin 80 mg tablet 80 mg PO HS #90 tabs 05/31/21 02/09/22 Rx blood-glucose meter,continuous 08/01/21 02/09/22 History (Dexcom G6 Sound Editor misc) blood-glucose sensor (Dexcom G6 08/01/21 02/09/22 History Sensor device) blood-glucose transmitter (Dexcom 08/01/21 02/09/22 History G6 Transmitter device) pantoprazole 40 mg tablet,delayed 40 mg PO QAM 08/08/21 02/09/22 History release tamsulosin 0.4 mg capsule 0.4 mg PO QAM #90 caps 08/19/21 02/09/22 Rx metoprolol succinate 100 mg 100 mg PO BID #180 tabs 09/23/21 02/09/22 Rx tablet,extended release 24 hr famotidine 20 mg tablet 20 mg PO BID #180 tabs 10/18/21 02/09/22 Rx furosemide 80 mg tablet 80 mg PO QAM #90 tabs 10/18/21 02/09/22 Rx isosorbide mononitrate 60 mg 180 mg PO QAM #270 tabs 10/18/21 02/09/22 Rx tablet,extended release 24 hr metoclopramide HCl 10 mg tablet 10 mg PO BID #60 tabs 10/18/21 02/09/22 Rx (Reglan) sennosides 8.6 mg-docusate sodium 1 tab-cap PO DAILY PRN 11/17/21 02/09/22 Rx 50 mg tablet (Colace 2-In-1) Constipation #30 tabs ranolazine 1,000 mg 1,000 mg PO Q12H #180 tabs 11/30/21 02/09/22 Rx tablet,extended release,12 hr diltiazem HCl 120 mg 240 mg PO QAM #180 caps 12/01/21 02/09/22 Rx capsule,extended release 24 hr ergocalciferol (vitamin D2) 1,250 1,250 mcg PO .weekly #24 caps 01/17/22 02/09/22 Rx mcg (50,000 unit) capsule Lantus Solostar U-100 Insulin 100 40 unit (0.4 mL) subcut QAM 90 01/23/22 02/09/22 Rx unit/mL (3 mL) subcutaneous pen days #45 mL (insulin glargine) dapagliflozin 10 mg tablet 10 mg PO DAILY #90 tabs 02/08/22 02/09/22 Rx (Farxiga) nitroglycerin 0.4 mg sublingual 0.4 mg sublingual DIRECTED PRN 02/08/22 02/09/22 Rx tablet Chest Pain #20 tabs sertraline 100 mg tablet 100 mg PO DAILY 02/09/22 02/09/22 History Past Med/Surg History Medical History Arteriosclerotic vascular disease (07/04/11) Barretts esophagus Benign prostate hyperplasia Chronic kidney disease Chronic systolic congestive heart failure Complex sleep apnea syndrome Coronary artery disease (07/04/11) Depression Diverticulosis Fatigue Gastroparesis (12/16/12) Hiatal hernia History of myocardial infarction Hyperlipidemia (07/04/11) Hypertension Ischemic cardiomyopathy On anticoagulant therapy Parkinsons disease Peripheral vascular disease (07/04/11) SOB (shortness of breath) on exertion Type 2 diabetes mellitus with insulin therapy Surgical History History of cardiac catheterization History of colonoscopy (04/16/17) History of esophagogastroduodenoscopy (EGD) History of open reduction and internal fixation (ORIF) procedure History of repair of hiatal hernia Hx of cholecystectomy S/P coronary artery bypass graft x 4 (07/04/11) Family History Mother Family history of diabetes mellitus Coronary heart disease Father Family history of esophageal cancer Coronary heart disease Uncle Myocardial infarction Brother Myocardial infarction Other Diabetes No family history of adverse response to anesthesia No significant family history Denies family history of Ovarian cancer Prostate cancer Breast cancer Colorectal cancer Social History Smoking Status: Never smoker Tobacco Type: Cigarettes Age Started Using Tobacco: 16; Age Quit Using Tobacco: 28; packs per day: 1; Years Smoked: 12; Number of Years Since Quit: 36; Second Hand Exposure: No; Hx Alcohol Use: Yes Alcohol Intake Frequency: Monthly or Less Hx Substance Use: No Preferred Language: Cambodian Communication Ability: Effective Visual Impairment: No Limitations Hearing Ability: Normal Belt Builder Required: No Beliefs That Will Affect Care: None marital status: Current Living Situation: Spouse current occupational status: retired Feels Safe at Home: Yes Childhood Exposure to Second-Hand Smoke: No caffeine: No Dental Care, Regularly: No Physical Activity Frequency: Does not Exercise Seatbelt Use: always Sunscreen Use: No Assistive Devices: CPAP and Glasses Review of Systems Review of Systems: The patient denies palpitations, cough, sore throat, fevers, chills, sweats, nausea, vomiting, diarrhea , constipation, abdominal p ain, pelvic pain, blood in urine or stool, dysuria, urinary frequency or urgency, lightheadedness, dizziness, headache, memory loss, loss of consciousness, rash, abnormal bruising or bleeding, imbalance, focal or generalized weakness, numbness or tingling in arms or legs, back or neck pain, or night sweats. The review of systems is otherwise negative other than for that already noted above, and at least 10 systems have been reviewed. Physical Exam Physical Exam: The patient is awake, alert and oriented 3, looks mildly diaphoretic, normocephalic and atraumatic, lying in bed and in mild acute distress. HEENT--PERRL, EOMI, mucous membranes and oropharynx normal. Neck--supple. No JVD. No bruits. Thyroid normal, trachea midline, no adenopathy. Heart--normal S1 and S2. No murmurs, rubs or gallops. Lungs--crackles at the bases bilaterally. Mild respiratory distress, no accessory muscle use. Abdomen--normal bowel sounds and soft. Nontender. Nondistended, no hernias or masses, no organomegaly. Extremities--2+ bilateral pretibial pitting edema Dermatologic--normal skin turgor, normal color, no abnormal lymph nodes, no rash. Neurologic--cranial nerves II through XII grossly intact. Rheumatologic--normal range of motion. Psychiatric--somewhat lethargic and slow to answer questions Results & Data Results & Data ([facility]) Vital Signs (Past 12 Hours) Vital Signs Temp Pulse Resp BP Pulse Ox O2 Del Method 02/09/22 03:00 72 24 139/69 91 02/09/22 02:30 74 24 132/63 91 02/09/22 02:09 76 24 92 02/09/22 02:03 Room Air 02/09/22 02:05 37.5 C 75 17 139/68 93 Laboratory Results Laboratory Results WBC 4.65 K/ul (4.8-10.8) L 02/09/22 01:35 RBC 3.37 M/uL (4.63-6.08) L 02/09/22 01:35 Hgb 9.8 g/dl (14.0-18.0) L 02/09/22 01:35 Hct 29.7 % (40.1-51.0) L 02/09/22 01:35 MCV 88.1 fL (80.0-100.0) 02/09/22 01:35 MCH 29.1 pg (25.0-34.0) 02/09/22 01:35 MCHC 33.0 g/dL (32.0-36.0) 02/09/22 01:35 RDW Std Deviation 41.4 fL (36.4-46.3) 02/09/22 01:35 RDW Coeff of Min 13.0 % (11.5-14.5) 02/09/22 01:35 Plt Count 134 K/uL (130-400) 02/09/22 01:35 MPV 9.4 fL (9.4-12.4) 02/09/22 01:35 Immature Gran % (Auto) 1.3 % 02/09/22 01:35 Neut % (Auto) 71.5 % 02/09/22 01:35 Lymph % (Auto) 12.0 % 02/09/22 01:35 [place] % (Auto) 14.6 % 02/09/22 01:35 Eos % (Auto) 0.2 % 02/09/22 01:35 Baso % (Auto) 0.4 % 02/09/22 01:35 Neut # (Auto) 3.32 K/uL (1.4-6.5) 02/09/22 01:35 Lymph # (Auto) 0.56 K/uL (1.2-3.4) L 02/09/22 01:35 [place] # (Auto) 0.68 K/uL (0.24-0.82) 02/09/22 01:35 Eos # (Auto) 0.01 K/uL (0-0.50) 02/09/22 01:35 Baso # (Auto) 0.02 K/uL (0-0.2) 02/09/22 01:35 Immature Gran # (Auto) 0.06 K/uL (0.00-0.02) H 02/09/22 01:35 PT 11.4 Seconds (9.0-12.0) 02/09/22 03:21 INR 1.1 (0.9-1.1) 02/09/22 03:21 APTT 27.6 Seconds (21.0-31.0) 02/09/22 03:21 PTT Ratio 1.0 02/09/22 03:21 Sodium 136 mmol/L (136-145) 02/09/22 01:35 Potassium 3.2 mmol/L (3.5-5.1) L 02/09/22 01:35 Chloride 102 mmol/L (98-107) 02/09/22 01:35 Carbon Dioxide 20 mmol/L (21-32) L 02/09/22 01:35 Anion Gap 14 (3-11) H 02/09/22 01:35 BUN 33 mg/dl (6-23) H 02/09/22 01:35 Creatinine 2.00 mg/dl (0.6-1.4) H D 02/09/22 01:35 Est Cr Clr Drug Dosing 42.0 ml/min 02/09/22 01:35 Est GFR ( Amer) 38.6 ml/min 02/09/22 01:35 Est GFR (Non-Af Amer) 33.3 ml/min 02/09/22 01:35 BUN/Creatinine Ratio 16.5 (10-20) 02/09/22 01:35 Glucose 268 mg/dl (70-99(Fasting)) H 02/09/22 01:35 Calcium 8.6 mg/dl (8.5-10.1) 02/09/22 01:35 Magnesium 1.9 mg/dl (1.7-2.4) 02/09/22 03:25 Total Bilirubin 1.0 mg/dl (0.2-1.0) 02/09/22 01:35 AST 36 U/L (13-39) 02/09/22 01:35 ALT 39 U/L (7-52) 02/09/22 01:35 Alkaline Phosphatase 26 U/L (34-104) L 02/09/22 01:35 Troponin I High Sens 172.2 pg/ml (0-20) H* 02/09/22 01:35 Total Protein 6.5 gm/dl (6.0-8.3) 02/09/22 01:35 Albumin 3.6 gm/dl (3.4-5.0) 02/09/22 01:35 Globulin 2.9 gm/dl (2.5-4.0) 02/09/22 01:35 Albumin/Globulin Ratio 1.2 (0.9-2) 02/09/22 01:35 Lipase 53 U/L (11-82) 02/09/22 01:35 SARS-CoV-2, RNA, NAAT POSITIVE (NEGATIVE) A* 02/09/22 Unknown - Code Status & VTE Plan Code Status Full code VTE Prophylaxis Plan VTE Prophylaxis will be ordered: Yes PG Care Time/CCT Total # of Minutes Spent Total Time Spent with Patient: Total time spent is greater than 50% in coordination of care (as documented) at patient's floor/unit and/or counseling patient: Coding Level of Care Code 93324 Initial Inpt Care Lvl 3 Diagnoses COVID-19 virus infection U07.1 NSTEMI (non-ST elevated myocardial infarction) I21.4 Acute CHF (congestive heart failure) I50.9 Coronary artery disease I25.10 Ischemic cardiomyopathy I25.5 Uncontrolled diabetes mellitus with circulatory complication, with long-term current use of insulin E11.59; E11.65; Z79.4 Uncontrolled type 2 diabetes mellitus with diabetic neuropathy E11.40; E11.65 Chronic kidney disease N18.9 Chronic kidney disease stage: unspecified stage Acid reflux disease K21.9 Barretts esophagus K22.70 Sleep-wake schedule disorder, delayed phase type G47.21 Parkinsons disease G20 Depression F32.9 Benign prostate hyperplasia N40.0 (1) Chronic kidney disease Chronic kidney disease stage: unspecified stage Qualified Code(s): N18.9 - Chronic kidney disease, unspecified
[2022-02-09 03:54] LABS: INR 1.1 (0.9-1.1); Partial Thromboplastin Time 27.6 Seconds (21.0-31.0); Prothrombin Time 11.4 Seconds (9.0-12.0)
[2022-02-09] MEDS: HEPARIN SODIUM/DEXTROSE 25,000 UNITS/500 ML BAG IV SCH ×3 (04:02→21:13)
[2022-02-09] MEDS ORDERED: POTASSIUM CHLORIDE CRTAB 20 MEQ TABCR PO STA (04:03)
[2022-02-09] MEDS ORDERED: dexAMETHasone 6 MG in SYRINGE 0 ML IV ONE (04:15)
[2022-02-09] MEDS ORDERED: FUROSEMIDE 40 MG/4 ML VIAL IV ONE (04:29)
[2022-02-09] MEDS ORDERED: ACETAMINOPHEN 325 MG TAB PO PRN (06:32)
[2022-02-09] MEDS ORDERED: DEXTROSE 50% 50 ML SYRINGE IV PRN (06:32)
[2022-02-09] MEDS ORDERED: DOCUSATE SODIUM/SENNA 50/8.6MG TAB PO PRN (06:32)
[2022-02-09] MEDS ORDERED: ONDANSETRON INJ 2 MG/ML 2 ML VIAL IV PRN (06:32)
[2022-02-09] MEDS ORDERED: GLUCOSE 40% GEL 15 GM TUBE PO PRN (06:32)
[2022-02-09] MEDS ORDERED: CARBOHYDRATES FOR HYPOGLYCEMIA PO PRN (06:32)
[2022-02-09] MEDS ORDERED: GLUCOSE 10 TAB/TUBE PO PRN (06:32)
[2022-02-09] MEDS ORDERED: NITROGLYCERIN SL 0.4 MG/TAB TAB SL PRN (06:32)
[2022-02-09] MEDS ORDERED: GLUCAGON FOR INJ 1 MG VIAL SQ PRN (06:32)
--- NOTE | 2022-02-09 08:51 | XRay Report ---
XR chest 1V portable HISTORY: 66 years-old Male Chest Pain . Acute chest pain COMPARISON: 08/08/2021 TECHNIQUE: AP view of the chest FINDINGS: Cardiac silhouette is enlarged. Prior median sternotomy with CABG. No pneumothorax, large pleural eff usion, or airspace consolidation. Pulmonary vascular congestion. Degenerative changes of the shoulder s and spine. Left shoulder rotator cuff calcific tendinosis. IMPRESSION: Cardiomegaly with pulmonary vascular congestion. ACT 112: Negative or not required by law. The above report was generated using voice recognition software. It may contain grammatical, syntax o r spelling errors. Electronically signed by: Moe Dos Santos M.D. 02/09/2022 8:50 AM
[2022-02-09] MEDS ORDERED: CALCIUM CARBONATE VITAMIN D3 PO SCH (09:00)
[2022-02-09] MEDS ORDERED: [UNRECOGNIZED DRUG - OTHER] PO SCH (09:00)
[2022-02-09] MEDS: METOCLOPRAMIDE HCL 10 MG TABLET PO SCH ×2 (09:03→21:02)
[2022-02-09] MEDS: CEROVITE ADV FORMULA TAB PO SCH (09:03)
[2022-02-09] MEDS: CHOLECALCIFEROL 5,000 UNITS 125 MCG TAB PO SCH (09:03)
[2022-02-09] MEDS: FERROUS SULFATE 325 MG TAB PO SCH ×3 (09:03→17:41)
[2022-02-09] MEDS: OMEGA-3 (PURIFIED FISH OIL) 1 GM CAP PO SCH ×2 (09:03→21:03)
[2022-02-09] MEDS: SERTRALINE HCL 100 MG TABLET PO SCH (09:04)
[2022-02-09] MEDS: FAMOTIDINE 20 MG TAB PO SCH ×2 (09:04→21:02)
[2022-02-09] MEDS: PANTOprazole 40 MG TAB PO SCH (09:05)
[2022-02-09] MEDS: CLOPIDOGREL BISULFATE 75 MG TAB PO SCH (09:05)
[2022-02-09] MEDS: dilTIAZem HCL 240 MG CAPCR PO SCH (09:05)
[2022-02-09] MEDS: ASPIRIN 81 MG ECTAB PO SCH (09:05)
[2022-02-09] MEDS: FUROSEMIDE 80 MG TAB PO SCH (09:06)
[2022-02-09] MEDS: ISOSORBIDE MONO EXTENDED REL 60 MG TABCR PO SCH (09:06)
[2022-02-09] MEDS: METOPROLOL SUCC 50MG EXT REL TAB PO SCH ×2 (09:06→21:02)
[2022-02-09] MEDS: TAMSULOSIN HCL 0.4 MG CAP PO SCH (09:06)
[2022-02-09] MEDS: RANOLAZINE 500 MG ER TAB PO SCH ×2 (09:07→17:41)
[2022-02-09] MEDS: INSULIN ASPART PER UNIT SC SCH ×4 (09:26→20:47)
[2022-02-09] MEDS: LANTUS PER UNIT CHARGE SQ SCH (09:26)
[2022-02-09 09:49] LABS: Hematocrit (blood only) 30.2 % (40.1-51.0); Hemoglobin 10.1 g/dl (14.0-18.0)
--- NOTE | 2022-02-09 09:51 | Cardiology Consultation ---
Date of Consultation February 09, 2022 Assessment & Plan (1) Elevated troponin: -mild elevation may have been related to his repeated episodes of angina pectoris yesterday. -COVID infections are known to increase troponin levels. -continue intravenous heparin while trending high sensitivity troponin levels. (2) Coronary artery disease: -s/p CABG x4, May 2003. -cardiac catheterization in January 2009. -continue medical management. (3) Ischemic cardiomyopathy: -LVEF normalized on echocardiogram performed in August 2015. -repeat echocardiogram pending. (4) Hypertension: -adequate control on current regimen. (5) Hyperlipidemia: -continue atorvastatin. History of Present Illness Attending Physician: Georgie Murry, History of Present Illness Mr. Bender admitted earlier today with a chest pain syndrome, mildly elevated high sensitivity troponin, and a COVID infection. This consultation was ordered to assistance cardiac management. Of note, patient is well known to me from the outpatient setting. The patient was in his usual state of health until approximately 3 days prior to presentation. He was helping care for his who had a sinusitis. He was in charge of meals which mainly included restaurant type food high in salt. On the day of presentation, patient noted intermittent episodes of his typical angina pectoris. He presented to the emergency room for further care. His initial high sensitivity troponin was elevated 172.2. Chest x-ray suggested interstitial edema. Fortunately, there were no acute EKG changes. The patient was placed on a heparin drip and admitted to the telemetry unit. he patient's cardiac history began in May 2003 when he underwent a 4 vessel bypass at [facility]. This included an RIVAS to the LAD, an SVG to D2, an SVG to OM1, and SVG to a left-sided PDA. The patient did well until January 2009 when he presented with crescendo angina pectoris. A cardiac catheterization revealed severe nez perce vessel disease with a subtotally occluded left main and proximal LAD. There was total occlusion of the proximal and mid LCx. The RIVAS and the SVG to the OM1 were both patent. Unfortunately, SVG to the PDA and the SVG to D2 were totally occluded. The PDA filled from collaterals [facility] non dominant right coronary artery. The patient was felt to be inoperable and medical management was recommended. The patient has had chronic stable angina pectoris. He is now on almost maximal medical management. Currently, patient is resting comfortably in bed without complaints. Past medical and surgical history 1. Coronary artery disease-see above 2. CABG x4-May 2003 3. Resolved ischemic cardiomyopathy 4. Chronic diastolic CHF 5. Hypertension 6. Hypercholesterolemia 7. Chronic stable angina pectoris 8. Diabetes mellitus 9. Depression 10. BPH 11. GERD 12. Mendoza's esophagus 13. Chronic renal failure 14. Diverticulosis 15. Colonic polyps 16. Parkinson's disease 17. Cholecystectomy 18. Hiatal hernia repair-December 2011 Social history and lives with his No tobacco or alcohol Family history Significant for early coronary artery disease Review of systems A 10 point review of systems was negative except for that described above. Allergies Allergy/AdvReac Type Severity Reaction Status Date / Time glipizide Allergy Severe Heart Verified 02/08/22 08:50 Palpatations. nabumetone AdvReac Severe "had drug Verified 02/08/22 08:50 intereaction with this" simvastatin AdvReac Mild weakness Verified 02/08/22 08:50 Home Medications Medication Instructions Recorded Confirmed Type aspirin 81 mg tablet,delayed 81 mg PO QAM 08/17/18 02/09/22 History release calcium carbonate 600 mg-vitamin 1 tab PO QAM 08/17/18 02/09/22 History D3 10 mcg (400 unit) tablet (Calcium 600 + D(3)) cyanocobalamin (vitamin B-12) 1,000 mcg PO QAM 08/17/18 02/09/22 History 1,000 mcg tablet (Vitamin B-12) ferrous sulfate 325 mg (65 mg 325 mg PO TIDM 08/17/18 02/09/22 History iron) tablet zvvucjkg-cki-ctfid acid 300 1 tab PO QAM 08/17/18 02/09/22 History mcg-lycopene 600 mcg-lutein 300 mcg tablet (Centrum Silver Men) omega 2-opo-awk-fish oil 1,000 mg 1 cap PO BID 08/17/18 02/09/22 History (120 mg-180 mg) capsule (Fish Oil) blood sugar diagnostic (OneTouch #10 ea 06/10/20 02/09/22 History Verio test strips) pen needle, diabetic 30 gauge x ##1 06/10/20 02/09/22 History 1/3" insulin aspart U-100 100 unit/mL 15 unit (0.15 mL) subcut TIDM #45 12/31/20 02/09/22 Rx (3 mL) subcutaneous pen (Novolog mL Flexpen U-100 Insulin aspart) clopidogrel 75 mg tablet 75 mg PO QAM 05/16/21 02/09/22 History atorvastatin 80 mg tablet 80 mg PO HS #90 tabs 05/31/21 02/09/22 Rx blood-glucose meter,continuous 08/01/21 02/09/22 History (Dexcom G6 Power Sweeper Operator misc) blood-glucose sensor (Dexcom G6 08/01/21 02/09/22 History Sensor device) blood-glucose transmitter (Dexcom 08/01/21 02/09/22 History G6 Transmitter device) pantoprazole 40 mg tablet,delayed 40 mg PO QAM 08/08/21 02/09/22 History release tamsulosin 0.4 mg capsule 0.4 mg PO QAM #90 caps 08/19/21 02/09/22 Rx metoprolol succinate 100 mg 100 mg PO BID #180 tabs 09/23/21 02/09/22 Rx tablet,extended release 24 hr famotidine 20 mg tablet 20 mg PO BID #180 tabs 10/18/21 02/09/22 Rx furosemide 80 mg tablet 80 mg PO QAM #90 tabs 10/18/21 02/09/22 Rx isosorbide mononitrate 60 mg 180 mg PO QAM #270 tabs 10/18/21 02/09/22 Rx tablet,extended release 24 hr metoclopramide HCl 10 mg tablet 10 mg PO BID #60 tabs 10/18/21 02/09/22 Rx (Reglan) sennosides 8.6 mg-docusate sodium 1 tab-cap PO DAILY PRN 11/17/21 02/09/22 Rx 50 mg tablet (Colace 2-In-1) Constipation #30 tabs ranolazine 1,000 mg 1,000 mg PO Q12H #180 tabs 11/30/21 02/09/22 Rx tablet,extended release,12 hr diltiazem HCl 120 mg 240 mg PO QAM #180 caps 12/01/21 02/09/22 Rx capsule,extended release 24 hr ergocalciferol (vitamin D2) 1,250 1,250 mcg PO .weekly #24 caps 01/17/22 02/09/22 Rx mcg (50,000 unit) capsule Lantus Solostar U-100 Insulin 100 40 unit (0.4 mL) subcut QAM 90 01/23/22 02/09/22 Rx unit/mL (3 mL) subcutaneous pen days #45 mL (insulin glargine) dapagliflozin 10 mg tablet 10 mg PO DAILY #90 tabs 02/08/22 02/09/22 Rx (Farxiga) nitroglycerin 0.4 mg sublingual 0.4 mg sublingual DIRECTED PRN 02/08/22 02/09/22 Rx tablet Chest Pain #20 tabs sertraline 100 mg tablet 100 mg PO DAILY 02/09/22 02/09/22 History Patient History Medical History Arteriosclerotic vascular disease (07/04/11) Barretts esophagus Benign prostate hyperplasia Chronic kidney disease Chronic systolic congestive heart failure Complex sleep apnea syndrome Coronary artery disease (07/04/11) Depression Diverticulosis Fatigue Gastroparesis (12/16/12) Hiatal hernia History of myocardial infarction Hyperlipidemia (07/04/11) Hypertension Ischemic cardiomyopathy On anticoagulant therapy Parkinsons disease Peripheral vascular disease (07/04/11) SOB (shortness of breath) on exertion Type 2 diabetes mellitus with insulin therapy Surgical History History of cardiac catheterization History of colonoscopy (04/16/17) History of esophagogastroduodenoscopy (EGD) History of open reduction and internal fixation (ORIF) procedure History of repair of hiatal hernia Hx of cholecystectomy S/P coronary artery bypass graft x 4 (07/04/11) Family History Mother Family history of diabetes mellitus Coronary heart disease Father Family history of esophageal cancer Coronary heart disease Uncle Myocardial infarction Brother Myocardial infarction Other Diabetes No family history of adverse response to anesthesia No significant family history Denies family history of Ovarian cancer Prostate cancer Breast cancer Colorectal cancer Social History Smoking Status: Former smoker Tobacco Type: Cigarettes Age Started Using Tobacco: 16; Age Quit Using Tobacco: 28; packs per day: 1; Years Smoked: 12; Number of Years Since Quit: 36; Second Hand Exposure: No; Do You Dip or Chew Tobacco: No; Tobacco Cessation Education Requested by Patient: No Hx Alcohol Use: Yes Alcohol Intake Frequency: Monthly or Less Hx Substance Use: No Preferred Language: Mauritian Communication Ability: Effective Visual Impairment: No Limitations Hearing Ability: Normal 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 Murry as patient in [facility]. Results & Data ([facility]) Vital Signs (Past 12 Hours) Vital Signs Temp Pulse Pulse Resp BP BP Pulse Ox 02/09/22 09:18 63 02/09/22 08:11 37.2 C 66 18 155/80 H 94 02/09/22 06:34 36.9 C 102 H 20 151/77 H 96 02/09/22 06:13 65 18 95 02/09/22 05:30 67 16 133/68 95 02/09/22 05:00 67 23 142/70 H 92 02/09/22 04:30 135/62 02/09/22 04:00 70 19 125/64 94 02/09/22 03:30 69 24 137/65 91 02/09/22 03:00 72 24 139/69 91 02/09/22 02:30 74 24 132/63 91 02/09/22 02:09 76 24 92 02/09/22 02:03 02/09/22 02:05 37.5 C 75 17 139/68 93 O2 Del Method 02/09/22 09:18 02/09/22 08:11 Room Air 02/09/22 06:34 Room Air 02/09/22 06:13 Room Air 02/09/22 05:30 02/09/22 05:00 02/09/22 04:30 02/09/22 04:00 02/09/22 03:30 02/09/22 03:00 02/09/22 02:30 02/09/22 02:09 02/09/22 02:03 Room Air 02/09/22 02:05 Laboratory Results CBC notes hemoglobin of 9.8, hematocrit 29.7, white count 4.6, a platelet count of [id number]. Electrolytes note a sodium of 136, potassium 3.2, chloride 102, bi carb 20, BUN 33, creatinine 2.0, and glucose of 268. Initial high sensitivity troponin was 172.2 with a follow-up value of 306.9. Diagnostic Findings EKG reveals normal sinus rhythm with first-degree AV block and left ventricular hypertrophy with QRS widening and repolarization changes. Chest x-ray notes cardiomegaly and mild interstitial edema. PG Care Time/CCT Total # of Minutes Spent Total Time Spent with Patient: Total time spent is greater than 50% in coordination of care (as documented) at patient's floor/unit and/or counseling patient: Coding Level of Care Code 94987 Initial Inpt Care Lvl 3 Diagnoses Elevated troponin R77.8 Coronary artery disease I25.10 Ischemic cardiomyopathy I25.5 Hypertension I10 Hypertension type: unspecified Hyperlipidemia E78.5 (1) Hypertension Hypertension type: unspecified Qualified Code(s): I10 - Essential (primary) hypertension
[2022-02-09 10:18] LABS: Partial Thromboplastin Ratio > 5.1
--- NOTE | 2022-02-09 10:31 | Hospitalist Progress Note ---
Date of Service February 09, 2022 Assessment & Plan (1) NSTEMI (non-ST elevated myocardial infarction): Plan: 66 yo M Hx IDDM2 with polyneuropathy, GERD, anemia, depression, Mendoza's esophagus, BPH, CKD, CAD, complex sleep apnea syndrome, hiatal hernia, hyperlipidemia, ischemic cardiomyopathy, Parkinson's disease, peripheral vascular disease and arteriosclerotic vascular disease NSTEMI/acute CHF/CAD/ischemic cardiomyopathy: - Hx CABG x4 in 2003 (RIVAS to LAD, SVG to D2, SVG to OM1, SVG to left PDA). - January 2009 found to have severe [place] vessel disease with subtotal occlusion of the left main/proximal LAD and proximal/mid LCx, as well as total occlusion of SVG to PDA and SVG to D2. [place] to be inoperable at that time. - Presented to ER yesterday with chest pain, and was found to have troponin 172.2 -> has since hit peak and begun to downtrend. - No acute EKG changes in ER. - Echo showed EF 55-60% without change in chronic wall motion abnormalities. - Heparin gtt started; per Cardiology to continue for 24 hours. - Dietary discretion with excessive sodium over the past 3 days is likely the cause of CHF exacerbation. - Continue Lasix 40mg IV daily with monitoring of BMP. - Continue clopidogrel, aspirin, diltiazem, isosorbide mononitrate, metoprolol succinate, ranolazine, and nitroglycerin sublingual as needed. - Cardiology consulted and appreciate recommendations: no medication changes at this time. (2) Acute CHF (congestive heart failure): Plan: See above (3) COVID-19 virus infection: Plan: - Suspect physiologic stress is responsible in part for cardiac state. - Patient had generalized weakness over the previous 24 hours. - Continue dexamethasone 6 mg IV daily while admitted. - Vitamin D 125 mcg p.o. every morning. - Supplemental O2 as needed to maintain oxygen saturation of >92%. (4) Coronary artery disease: Plan: See above (5) Ischemic cardiomyopathy: Plan: See above (6) Uncontrolled type 2 diabetes mellitus with diabetic neuropathy: Plan: - Diabetes mellitus uncontrolled with diabetic neuropathy and long-term use of insulin. - Continue insulin glargine 40 units daily with SSI. - Follow blood sugars closely while getting IV dexamethasone. (7) Uncontrolled diabetes mellitus with circulatory complication, with long-term current use of insulin: Plan: See above (8) Chronic kidney disease: Plan: - Creatinine 2.00 on admission, with range 2.35-3.17 . - Likely a sign of fluid overload. - Follow serially while diuresing. (9) Acid reflux disease: Plan: - Continue famotidine, metoclopramide and pantoprazole. 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 (12) Depression: Plan: - Continue sertraline (13) Benign prostate hyperplasia: Plan: - Continue tamsulosin (14) Anemia: Plan: - Admission Hgb 9.8; baseline ~11.0. - No evidence of bleeding. - History of normocytic anemia on iron and B12 supplementation, will continue. Plan Code Status: FULL CODE FEN: Heart Healthy, DM2 DVT ppx: Heparin gtt Dispo: Telemetry Admission and Anticipated Discharge Date Admission Date: February 09, 2022 Subjective Patient denies chest pain at this time. Feeling overall much better compared to earlier this morning. Review of Systems Constitutional: + malaise; no fever and no chills Respiratory: no cough and no dyspnea Cardiovascular: + edema; no chest pain and no palpitations Gastrointestinal: no abdominal pain, no constipation and no diarrhea/loose stools Physical Exam Constitutional: well developed and well nourished; no acute distress Respiratory: no respiratory distress and does not use accessory muscles normal respiratory effort, crackles at bases Cardiovascular: RRR no murmur, 1+ pitting edema bilateral LE, per patient does not appear to be more swollen than his baseline Gastrointestinal (Abdomen): normal bowel sounds, soft, nontender, no hepatosplenomegaly Results & Data Results & Data ([facility]) Vital Signs (Past 12 Hours) Vital Signs Temp Pulse Pulse Resp BP BP Pulse Ox 02/09/22 09:18 63 02/09/22 08:11 37.2 C 66 18 155/80 H 94 02/09/22 06:34 36.9 C 102 H 20 151/77 H 96 02/09/22 06:13 65 18 95 02/09/22 05:30 67 16 133/68 95 02/09/22 05:00 67 23 142/70 H 92 02/09/22 04:30 135/62 09/15/22 04:00 70 19 125/64 94 02/09/22 03:30 69 24 137/65 91 02/09/22 03:00 72 24 139/69 91 02/09/22 02:30 74 24 132/63 91 02/09/22 02:09 76 24 92 02/09/22 02:03 02/09/22 02:05 37.5 C 75 17 139/68 93 O2 Del Method 02/09/22 09:18 02/09/22 08:11 Room Air 02/09/22 06:34 Room Air 02/09/22 06:13 Room Air 02/09/22 05:30 02/09/22 05:00 02/09/22 04:30 02/09/22 04:00 02/09/22 03:30 02/09/22 03:00 02/09/22 02:30 02/09/22 02:09 02/09/22 02:03 Room Air 02/09/22 02:05 PG Care Time/CCT Total # of Minutes Spent Total Time Spent with Patient: Total time spent is greater than 50% in coordination of care (as documented) at patient's floor/unit and/or counseling patient: Coding Level of Care Code None Diagnoses NSTEMI (non-ST elevated myocardial infarction) I21.4 Acute CHF (congestive heart failure) I50.9 COVID-19 virus infection U07.1 Coronary artery disease I25.10 Ischemic cardiomyopathy I25.5 Uncontrolled type 2 diabetes mellitus with diabetic neuropathy E11.40; E11.65 Uncontrolled diabetes mellitus with circulatory complication, with long-term current use of insulin E11.59; E11.65; Z79.4 Chronic kidney disease N18.9 Chronic kidney disease stage: unspecified stage Acid reflux disease K21.9 Barretts esophagus K22.70 Sleep-wake schedule disorder, delayed phase type G47.21 Depression F32.9 Benign prostate hyperplasia N40.0 Anemia N18.9; D63.1 Anemia type: due to chronic kidney disease Chronic kidney disease stage: unspecified stage (1) Chronic kidney disease Chronic kidney disease stage: unspecified stage Qualified Code(s): N18.9 - Chronic kidney disease, unspecified (2) Anemia Anemia type: due to chronic kidney disease Chronic kidney disease stage: unspecified stage Qualified Code(s): N18.9 - Chronic kidney disease, unspecified; D63.1 - Anemia in chronic kidney disease
[2022-02-09 10:33] LABS: Partial Thromboplastin Time > 139.0 Seconds (21.0-31.0)
--- NOTE | 2022-02-09 12:34 | XCELERA ---
[id number] \\[id number]
[2022-02-09 13:20] LABS: Hematocrit (blood only) 29.3 % (40.1-51.0); Hemoglobin 9.5 g/dl (14.0-18.0)
[2022-02-09 13:45] LABS: Partial Thromboplastin Ratio 3.4
[2022-02-09 14:00] LABS: Partial Thromboplastin Time 92.8 Seconds (21.0-31.0)
[2022-02-09 18:46] LABS: Hematocrit (blood only) 32.3 % (40.1-51.0); Hemoglobin 10.4 g/dl (14.0-18.0)
[2022-02-09] MEDS ORDERED: ATORVASTATIN 40 MG TAB PO SCH (21:00)
[2022-02-09 21:28] LABS: Partial Thromboplastin Ratio 3.3
--- NOTE | 2022-02-09 21:38 | Electrocardiogram Report ---
Test Reason : Blood Pressure : / mmHG Vent. Rate : 080 BPM Atrial Rate : 080 BPM P-R Int : 268 ms QRS Dur : 136 ms QT Int : 400 ms P-R-T Axes : 033 -25 116 degrees QTc Int : 461 ms Sinus rhythm with 1st degree A-V block Left ventricular hypertrophy with QRS widening and repolarization abnormality Non-specific intra-ventricular conduction block Abnormal ECG When compared with ECG of 08-AUG-2021 18:27, No significant change was found Confirmed by Dean Aponte [id number]) on 02/09/2022 9:38:32 PM Referred By: REFERRED SELF Confirmed By:Dean Aponte
[2022-02-10 01:28] LABS: Hematocrit (blood only) 29.9 % (40.1-51.0); Hemoglobin 9.8 g/dl (14.0-18.0)
[2022-02-10] MEDS ORDERED: STOP HEPARIN ORDER ONE (03:30)
[2022-02-10] MEDS ORDERED: dexAMETHasone 6 MG in SYRINGE 0 ML IV SCH (05:15)
[2022-02-10] MEDS: PANTOprazole 40 MG TAB PO SCH (06:03)
[2022-02-10] MEDS: RANOLAZINE 500 MG ER TAB PO SCH (06:03)
--- NOTE | 2022-02-10 06:48 | Discharge Summary ---
Discharge Summary Date of Service February 10, 2022 Admission HPI Per Admitting Provider The patient is a 66-year-old male with a past medical history including diabetes mellitus, GERD, uncontrolled diabetes mellitus type 2, diabetic polyneuropathy, long-term use of insulin, anemia, sleep-wake schedule disorder, delayed phase type, depression, Mendoza's esophagus, BPH, CKD, CAD, complex sleep apnea syndrome, hiatal hernia, hyperlipidemia, ischemic cardiomyopathy, Parkinson's disease, peripheral vascular disease and arteriosclerotic vascular disease. Patient reports that yesterday he was tired for most of the day, and was having intermittent issues with chest discomfort, of which he did not tell his or family. He as noted was awoken from sleep by chest pain and shortness of breath, and presents to the ED for assessment. Over the past 3 days, he has been attempting to take care of his , who is sick with a sinus infection, and had provided a significantly higher salt load of Egyptian food, hoagies, lunch meat and another salty meal. He has noted increased lower extremity edema over these past 3 days as well. Admission Exam Per Admitting Provider The patient is awake, alert and oriented 3, looks mildly diaphoretic, normocephalic and atraumatic, lying in bed and in mild acute distress. HEENT--PERRL, EOMI, mucous membranes and oropharynx normal. Neck--supple. No JVD. No bruits. Thyroid normal, trachea midline, no adenopathy. Heart--normal S1 and S2. No murmurs, rubs or gallops. Lungs--crackles at the bases bilaterally. Mild respiratory distress, no accessory muscle use. Abdomen--normal bowel sounds and soft. Nontender. Nondistended, no hernias or masses, no organomegaly. Extremities--2+ bilateral pretibial pitting edema Dermatologic--normal skin turgor, normal color, no abnormal lymph nodes, no rash. Neurologic--cranial nerves II through XII grossly intact. Rheumatologic--normal range of motion. Psychiatric--somewhat lethargic and slow to answer questions Principal Dx & Hospital Course #1 = Principal Diagnosis (1) NSTEMI (non-ST elevated myocardial infarction): 66 yo M Hx IDDM2 with polyneuropathy, GERD, anemia, depression, Mendoza's esophagus, BPH, CKD, CAD, complex sleep apnea syndrome, hiatal hernia, hyperlipidemia, ischemic cardiomyopathy, Parkinson's disease, peripheral vascular disease and arteriosclerotic vascular disease admitted for NSTEMI and acute on chronic CHF. NSTEMI/acute CHF/CAD/ischemic cardiomyopathy: - Hx CABG x4 in 2003 (RIVAS to LAD, SVG to D2, SVG to OM1, SVG to left PDA). - January 2009 found to have severe [place] vessel disease with subtotal occlusion of the left main/proximal LAD and proximal/mid LCx, as well as total occlusion of SVG to PDA and SVG to D2. [place] to be inoperable at that time. - Presented to ER with chest pain, and was found to have troponin 172.2 -> has since hit peak and begun to downtrend. - Echo showed EF 55-60% without change in chronic wall motion abnormalities. - Heparin gtt started; continued x24 hours. - Continue clopidogrel, aspirin, diltiazem, isosorbide mononitrate, metoprolol succinate, ranolazine, and nitroglycerin sublingual as needed. - Cardiology consulted and appreciate recommendations: no medication changes at this time. Follow up outpatient with Dr. Barraza. (2) Acute on chronic diastolic CHF (congestive heart failure): - Dietary indiscretion with excessive sodium over the past 3 days is likely the cause of CHF exacerbation. - Received Lasix 40mg IV daily while admitted, with improvement in fluid status. Transition to home furosemide 80mg PO daily. (3) COVID-19 virus infection: - Suspect physiologic stress is responsible in part for cardiac state. - Received dexamethasone 6 mg IV daily while admitted. - COVID isolation x10 days. (4) Coronary artery disease: See above (5) Ischemic cardiomyopathy: See above (6) Uncontrolled type 2 diabetes mellitus with diabetic neuropathy: - Diabetes mellitus uncontrolled with diabetic neuropathy and long-term use of insulin. - Resume home medications. (7) Uncontrolled diabetes mellitus with circulatory complication, with long-term current use of insulin: See above (8) Chronic kidney disease: - Creatinine 2.00 on admission, with range 2.35-3.17 . - At baseline on discharge. (9) Acid reflux disease: - Continue famotidine, metoclopramide and pantoprazole. (10) Barretts esophagus: See above (11) Sleep-wake schedule disorder, delayed phase type: - CPAP at bedtime. (12) Depression: - Continue sertraline. (13) Benign prostate hyperplasia: - Continue tamsulosin. (14) Anemia: - Admission Hgb 9.8; baseline ~11.0. - No evidence of bleeding. - History of normocytic anemia on iron and B12 supplementation. Plan Dispo: Home Discharge Exam Constitutional WD/WN, vitals as above Respiratory normal respiratory effort, lungs clear to auscultation Cardiovascular RRR, no murmur, 1+ bilateral pitting edema (chronic) Updated Medication List Medication Instructions Recorded Confirmed Type aspirin 81 mg tablet,delayed 81 mg PO QAM 08/17/18 02/09/22 History release calcium carbonate 600 mg-vitamin 1 tab PO QAM 08/17/18 02/09/22 History D3 10 mcg (400 unit) tablet (Calcium 600 + D(3)) cyanocobalamin (vitamin B-12) 1,000 mcg PO QAM 08/17/18 02/09/22 History 1,000 mcg tablet (Vitamin B-12) ferrous sulfate 325 mg (65 mg 325 mg PO TIDM 08/17/18 02/09/22 History iron) tablet nqydvlfi-twi-mcxue acid 300 1 tab PO QAM 08/17/18 02/09/22 History mcg-lycopene 600 mcg-lutein 300 mcg tablet (Centrum Silver Men) omega 0-ioi-esp-fish oil 1,000 mg 1 cap PO BID 08/17/18 02/09/22 History (120 mg-180 mg) capsule (Fish Oil) blood sugar diagnostic (OneTouch #10 ea 06/10/20 02/09/22 History Verio test strips) pen needle, diabetic 30 gauge x ##1 06/10/20 02/09/22 History 1/3" insulin aspart U-100 100 unit/mL 15 unit (0.15 mL) subcut TIDM #45 12/31/20 02/09/22 Rx (3 mL) subcutaneous pen (Novolog mL Flexpen U-100 Insulin aspart) clopidogrel 75 mg tablet 75 mg PO QAM 05/16/21 02/09/22 History atorvastatin 80 mg tablet 80 mg PO HS #90 tabs 05/31/21 02/09/22 Rx blood-glucose meter,continuous 08/01/21 02/09/22 History (Dexcom G6 [employer] misc) blood-glucose sensor (Dexcom G6 08/01/21 02/09/22 History Sensor device) blood-glucose transmitter (Dexcom 08/01/21 02/09/22 History G6 Transmitter device) pantoprazole 40 mg tablet,delayed 40 mg PO QAM 08/08/21 02/09/22 History release tamsulosin 0.4 mg capsule 0.4 mg PO QAM #90 caps 08/19/21 02/09/22 Rx metoprolol succinate 100 mg 100 mg PO BID #180 tabs 09/23/21 02/09/22 Rx tablet,extended release 24 hr famotidine 20 mg tablet 20 mg PO BID #180 tabs 10/18/21 02/09/22 Rx furosemide 80 mg tablet 80 mg PO QAM #90 tabs 10/18/21 02/09/22 Rx isosorbide mononitrate 60 mg 180 mg PO QAM #270 tabs 10/18/21 02/09/22 Rx tablet,extended release 24 hr metoclopramide HCl 10 mg tablet 10 mg PO BID #60 tabs 10/18/21 02/09/22 Rx (Reglan) sennosides 8.6 mg-docusate sodium 1 tab-cap PO DAILY PRN 11/17/21 02/09/22 Rx 50 mg tablet (Colace 2-In-1) Constipation #30 tabs ranolazine 1,000 mg 1,000 mg PO Q12H #180 tabs 11/30/21 02/09/22 Rx tablet,extended release,12 hr diltiazem HCl 120 mg 240 mg PO QAM #180 caps 12/01/21 02/09/22 Rx capsule,extended release 24 hr ergocalciferol (vitamin D2) 1,250 1,250 mcg PO .weekly #24 caps 01/17/22 02/09/22 Rx mcg (50,000 unit) capsule Lantus Solostar U-100 Insulin 100 40 unit (0.4 mL) subcut QAM 90 01/23/2202/09 Rx unit/mL (3 mL) subcutaneous pen days #45 mL (insulin glargine) dapagliflozin 10 mg tablet 10 mg PO DAILY #90 tabs 02/08/22 02/09/22 Rx (Farxiga) nitroglycerin 0.4 mg sublingual 0.4 mg sublingual DIRECTED PRN 02/08/22 02/09/22 Rx tablet Chest Pain #20 tabs sertraline 100 mg tablet 100 mg PO DAILY 02/09/22 02/09/22 History Hospital Stay Data Consultations 02/09/22 03:13 ED Decision to Admit Stat 02/09/22 04:43 Consult Cardiology Routine Discharge Instructions Given to Patient (Per Discharging Provider) You were admitted to the hospital for evaluation of your chest pain. Cardiology reviewed your case and felt that you were medically optimized given your heart disease. Because you have non-operable heart disease, a catheterization was not done. You were placed on a blood thinner IV medication for 24 hours, and your symptoms resolved. It is possible that your heart attack was spurred on by your COVID-19 infection. You did not require oxygen in the hospital. You were felt to be safe for discharge home with the following recommendations: 1) Continue all of your home medications. Follow up with Dr. Samaniego after your COVID quarantine ends. 2) Be sure to maintain a low salt diet, keeping your intake to less than 2000 milligrams of salt a day if you can help it. You can tell the salt content of foods through "Googling" the food, as well as checking the labels on foods. It is important to avoid salty foods such as processed or fast foods (like [employer]), canned foods, and tv dinners, as these are all very high in salt. 3) Please stay in [facility]- quarantine for a total of 10 days from diagnosis (02/19/2022). 4) You already have follow up scheduled in a few weeks with Dr. Barraza. Please keep this scheduled appointment. If you have any return of crushing chest pain, trouble breathing, feeling like you are going to pass out, please return to evaluation. Total Time Total Time Spent Total Time Spent (In Minutes): 40 Coding Level of Care Code 57859 OBS Care - Discharge Diagnoses NSTEMI (non-ST elevated myocardial infarction) I21.4 Acute on chronic diastolic CHF (congestive heart failure) I50.33 COVID-19 virus infection U07.1 Coronary artery disease I25.10 Ischemic cardiomyopathy I25.5 Uncontrolled type 2 diabetes mellitus with diabetic neuropathy E11.40; E11.65 Uncontrolled diabetes mellitus with circulatory complication, with long-term current use of insulin E11.59; E11.65; Z79.4 Chronic kidney disease N18.9 Chronic kidney disease stage: unspecified stage Acid reflux disease K21.9 Barretts esophagus K22.70 Sleep-wake schedule disorder, delayed phase type G47.21 Depression F32.9 Benign prostate hyperplasia N40.0 Anemia N18.9; D63.1 Anemia type: due to chronic kidney disease Chronic kidney disease stage: unspecified stage
[2022-02-10] MEDS: CHOLECALCIFEROL 5,000 UNITS 125 MCG TAB PO SCH (09:17)
[2022-02-10] MEDS: SERTRALINE HCL 100 MG TABLET PO SCH (09:17)
[2022-02-10] MEDS: METOCLOPRAMIDE HCL 10 MG TABLET PO SCH (09:17)
[2022-02-10] MEDS: TAMSULOSIN HCL 0.4 MG CAP PO SCH (09:17)
[2022-02-10] MEDS: ISOSORBIDE MONO EXTENDED REL 60 MG TABCR PO SCH (09:18)
[2022-02-10] MEDS: CEROVITE ADV FORMULA TAB PO SCH (09:18)
[2022-02-10] MEDS: FERROUS SULFATE 325 MG TAB PO SCH ×2 (09:18→12:33)
[2022-02-10] MEDS: METOPROLOL SUCC 50MG EXT REL TAB PO SCH (09:18)
[2022-02-10] MEDS: CLOPIDOGREL BISULFATE 75 MG TAB PO SCH (09:18)
[2022-02-10] MEDS: FAMOTIDINE 20 MG TAB PO SCH (09:18)
[2022-02-10] MEDS: OMEGA-3 (PURIFIED FISH OIL) 1 GM CAP PO SCH (09:18)
[2022-02-10] MEDS: dilTIAZem HCL 240 MG CAPCR PO SCH (09:18)
[2022-02-10] MEDS: FUROSEMIDE 80 MG TAB PO SCH (09:18)
[2022-02-10] MEDS: ASPIRIN 81 MG ECTAB PO SCH (09:18)
[2022-02-10] MEDS: INSULIN ASPART PER UNIT SC SCH ×2 (10:00→12:37)
[2022-02-10] MEDS: LANTUS PER UNIT CHARGE SQ SCH (10:01)
[2022-02-10 11:19] LABS: Estimated Average Glucose 137 mg/dl; Hemoglobin A1C 6.4 % (4.5-5.6)
--- NOTE | 2022-02-10 15:53 | Electrocardiogram Report ---
Test Reason : Blood Pressure : / mmHG Vent. Rate : 052 BPM Atrial Rate : 052 BPM P-R Int : 220 ms QRS Dur : 134 ms QT Int : 466 ms P-R-T Axes : 049 -24 130 degrees QTc Int : 433 ms Sinus bradycardia with 1st degree A-V block Non-specific intra-ventricular conduction block T wave abnormality, consider anterolateral ischemia Abnormal ECG When compared with ECG of 09-FEB-2022 02:03, Vent. rate has decreased BY 28 BPM T wave inversion more evident in Anterolateral leads Confirmed by John Barraza ([id number]) on 02/10/2022 3:52:59 PM Referred By: REFERRED SELF Confirmed By:John Barraza
[2022-02-12] MEDS ORDERED: ERGOCALCIFEROL 50,000 UNITS 1250 MCG CAP PO SCH (09:00)
== END 2022-02-10 15:41 | disposition home or self-care (01) | DRG 280 ==
LOC: ED 01:59 → INTOOBSV 03:46 → SUATTDRO 03:46 → 4W 03:46

== ENCOUNTER 2022-12-05 01:27 | Inpatient (IN) ==
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
[2022-12-05] MEDS ORDERED: fentaNYL citrate PF 100 MCG/2 ML VIAL IV STA (02:17)
[2022-12-05] MEDS ORDERED: NITROGLYCERIN 2% OINTMENT 30GM TUBE EXT ONE ×2 (02:17→08:27)
[2022-12-05 02:33] LABS: Basophils # (auto) 0.03 K/uL (0-0.2); Basophils % (auto) 0.5 %; Eosinophils % (auto) 1.6 %; Hematocrit (blood only) 34.7 % (42.0-52.0); Hemoglobin 11.7 g/dl (14.0-18.0); Immature Granulocytes # (auto) 0.06 K/uL (0.01-0.20); Lymphocytes # (auto) 1.77 K/uL (1.2-3.4); Lymphocytes % (auto) 28.7 %; Mean Corpuscular Hemoglobin 30.6 pg (25.0-34.0); Mean Corpuscular Hgb Conc 33.7 g/dL (32.0-36.0); Mean Corpuscular Volume 90.8 fL (80.0-100.0); Mean Platelet Volume 9.2 fL (9.4-12.4); Monocytes # (auto) 0.58 K/uL (0.11-0.59); Monocytes % (auto) 9.4 %; Neutrophils # (auto) 3.62 K/uL (1.40-6.50); Neutrophils % (auto) 58.8 %; Platelet Count 128 K/uL (130-400); RDW Coefficient of Variation 13.2 % (11.5-14.5); RDW Standard Deviation 43.2 fL (36.4-46.3); Red Blood Count 3.82 M/uL (4.70-6.10); White Blood Count 6.16 K/ul (4.8-10.8)
[2022-12-05 02:49] LABS: Albumin Globulin Ratio 1.4 (0.9-2); Albumin Level 3.8 gm/dl (3.4-5.0); BUN Creatinine Ratio 15.6 (10-20); Bilirubin,Total 0.9 mg/dl (0.2-1.0); Calcium 8.9 mg/dl (8.6-10.3); Creatinine Clr Calc Pharmacy 30.7 ml/min; Est GFR (Non-African American) 22.4 ml/min; Globulin 2.7 gm/dl (2.5-4.0); Potassium 3.3 mmol/L (3.5-5.1); Total Protein 6.5 gm/dl (6.0-8.3)
[2022-12-05 03:18] LABS: Troponin I High Sensitivity 536.7 pg/ml (0-20)
[2022-12-05] MEDS ORDERED: Heparin IV Adult Wt-Based Standard WITH Bolus Protocol IV SCH (03:50)
[2022-12-05] MEDS ORDERED: GLUCOSE 40% GEL 15 GM TUBE PO PRN (03:56)
[2022-12-05] MEDS ORDERED: DEXTROSE 50% 50 ML SYRINGE IV PRN (03:56)
[2022-12-05] MEDS ORDERED: GLUCAGON FOR INJ 1 MG VIAL SQ PRN (03:56)
[2022-12-05] MEDS ORDERED: CARBOHYDRATES FOR HYPOGLYCEMIA PO PRN (03:56)
[2022-12-05] MEDS ORDERED: GLUCOSE 10 TAB/TUBE PO PRN (03:56)
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
[2022-12-05] MEDS ORDERED: HEPARIN SOD (PORCINE) 1000 UNIT/ML IV ONE (04:02)
[2022-12-05] MEDS ORDERED: HEPARIN SODIUM/DEXTROSE 25,000 UNITS/500 ML BAG IV SCH (04:15)
[2022-12-05 04:56] LABS: Partial Thromboplastin Ratio 0.9; Partial Thromboplastin Time 24.6 Seconds (21.0-31.0)
[2022-12-05] MEDS ORDERED: ONDANSETRON INJ 2 MG/ML 2 ML VIAL IV PRN (05:37)
[2022-12-05] MEDS ORDERED: ACETAMINOPHEN 325 MG TAB PO PRN (05:37)
[2022-12-05] MEDS: MoRPHine SULFATE 2 MG/ML CARP IV PRN (06:20)
[2022-12-05] MEDS: PANTOprazole 40 MG TAB PO SCH (06:21)
[2022-12-05] MEDS ORDERED: POTASSIUM CHLORIDE CRTAB 20 MEQ TABCR PO STA (06:56)
[2022-12-05] MEDS ORDERED: POTASSIUM CHLORIDE CRTAB 20 MEQ TABCR PO ONE (07:07)
--- NOTE | 2022-12-05 07:09 | XRay Report ---
SINGLE VIEW CHEST CLINICAL HISTORY: Atypical chest pain. FINDINGS: An AP, portable, upright chest radiograph is compared to study dated 11/18/2022. The patient is status post midline sternotomy. The heart is enlarged noting atherosclerotic calcification of the thoracic aorta. The pulmonary vasculature is noncongested. Chronic interstitial thickening is simila r to previous. Mild scarring/atelectasis is noted at the lung bases. The lungs and pleural spaces are otherwise clear. No pneumothorax is seen. The skeletal structures are osteopenic. The bony thorax is grossly intact. IMPRESSION: Cardiomegaly with no active disease in the chest. ACT 112: Negative or not required by law. Electronically signed by: Juve Michele M.D. 12/05/2022 7:08 AM
[2022-12-05] MEDS ORDERED: INSULIN ASPART PER UNIT CHARGE SC SCH (07:30)
[2022-12-05] MEDS ORDERED: Nursing to Pharmacy Communication SCH ×2 (08:00→16:45)
[2022-12-05] MEDS: ISOSORBIDE MONO EXTENDED REL 60 MG TABCR PO SCH (08:29)
[2022-12-05] MEDS: CLOPIDOGREL BISULFATE 75 MG TAB PO SCH (08:29)
[2022-12-05] MEDS: FUROSEMIDE 80 MG TAB PO SCH (08:29)
[2022-12-05] MEDS: METOPROLOL SUCC 50MG EXT REL TAB PO SCH ×2 (08:29→19:53)
[2022-12-05] MEDS: TAMSULOSIN HCL 0.4 MG CAP PO SCH (08:29)
[2022-12-05] MEDS: ASPIRIN 81 MG ECTAB PO SCH (08:29)
[2022-12-05] MEDS: FAMOTIDINE 20 MG TAB PO SCH (08:30)
[2022-12-05] MEDS: METOCLOPRAMIDE HCL 10 MG TABLET PO SCH ×2 (08:30→19:56)
[2022-12-05] MEDS: rOPINIRole HCL 0.25 MG TABLET PO SCH ×3 (08:30→19:52)
[2022-12-05] MEDS: RANOLAZINE 500 MG ER TAB PO SCH ×2 (08:30→19:53)
[2022-12-05] MEDS: INSULIN ASPART PER UNIT CHARGE SC SCH ×4 (08:50→21:44)
[2022-12-05] MEDS: LANTUS PER UNIT CHARGE SQ SCH ×2 (08:54→21:44)
[2022-12-05] MEDS ORDERED: FAMOTIDINE 20 MG TAB PO SCH (09:00)
[2022-12-05] MEDS ORDERED: dilTIAZem HCL 240 MG CAPCR PO SCH (09:00)
--- NOTE | 2022-12-05 09:26 | Hospitalist Progress Note ---
Date of Service December 05, 2022 Assessment & Plan (1) NSTEMI (non-ST elevated myocardial infarction): Plan: Pt is a 67 yo male with PMH CKD3 CABGx4 in 2003, CHF, DM2 with neuropathy, depression, GERD, gastroparesis, HTN HLD Parkinson's, CAD, and JERMAIN here for chest pain. NSTEMI - per pt, hx of 5 prior MIs with CABG - EKG showed LBBB - pt started on heparin drip - trop elevation to 900, trend to peak - echo pending - continue with nitro SL PRN, morphine PRN, and nitro patch - per cardio: proceed with urgent cath CHF/hx of CAD -continue aspirin, plavix, and lasix HTN -continue isosorbide mononitrate, metoprolol, and ranolazine, and diltiazem HLD - continue atorvastatin GERD, gastroparesis -continue famotidine -continue metoclopramide -continue protonix DM2 - ordered SSI CKD3 - creat 2.78, near baseline - avoid nephrotoxic medication BPH - continue tamsulosin Parkinson's disease - continue ropinirole FEN: NPO pending cath Code Status: Full DVT PPX: heparin drip PT/OT: ordered Dispo: PCU (2) Diabetes: (3) Acid reflux disease: (4) Depression: (5) Benign prostate hyperplasia: (6) Chronic kidney disease: (7) Chronic systolic congestive heart failure: (8) Hyperlipidemia: (9) Hypertension: (10) Parkinsons disease: (11) Arteriosclerotic vascular disease: Admission and Anticipated Discharge Date Admission Date: December 05, 2022 Supervising Physician Co-Signing Physician Notes ATTESTATION I also saw the patient and confirmed madsen portions of the history and exam. I agree with the impression and plan in the resident documentation, and as summarized below. I also personally discussed the case with the cardiology team. 67-year-old male with history of extensive coronary artery disease presents with non-ST elevation AL with ongoing chest pain at rest. EXAM 172/83, 67, 14, 36.6, 93% room air Alert and oriented. Unfortunately chest pain at rest this morning. Heart rate is regular, 2/6 systolic ejection murmur appreciated. Abdomen soft and nontender Extremities without edema DATA Labs Hemoglobin 11.7, platelet count 128 Potassium 3.3, BUN 43, creatinine 2.76 Troponin 902.7 BNP 344 Imaging Chest x-ray dated 12/05/2022 shows no acute disease in the chest. IMPRESSION & PLAN Acute non-ST elevation myocardial infarction Urgent cardiac catheterization today Hypokalemia Replete BMP in AM Additional per resident documentation Subjective Pt seen at bedside this AM. He no longer had a chest pain. The chest pain that brought him in had been increasing over the past few days. He has had 5 MIs in the past with CABG procedure done ~20 yrs ago. Review of Systems Review of Systems: As per HPI Physical Exam Physical Exam: Constitutional: well appearing, no acute distress HEENT: normocephalic, no conjunctival injection CV: RRR, no murmur, 1+ bilateral pitting LE edema Respiratory: CTA bilaterally. No rhonchi, wheezes, or crackles. No increased work of breathing MSK: no gross deformities noted Skin: warm, dry, no rashes Neuro: alert, oriented, no FND noted Psych: mood and affect congruent Results & Data Results & Data Vital Signs (Past 12 Hours) Vital Signs Temp Pulse Pulse Resp BP BP BP 12/05/22 07:00 78 12/05/22 07:48 36.6 C 68 14 142/70 H 12/05/22 05:14 85 12/05/22 05:34 36.7 C 80 15 165/82 H 12/05/22 04:53 74 17 150/74 H 12/05/22 03:00 68 12 136/74 12/05/22 02:13 67 20 12/05/22 02:04 76 12/05/22 01:21 12/05/22 01:33 77 17 125/70 12/05/22 01:33 37.0 C 75 13 125/70 Pulse Ox O2 Del Method 12/05/22 07:00 12/05/22 07:48 98 Room Air 12/05/22 05:14 12/05/22 05:34 98 Room Air 12/05/22 04:53 96 Room Air 12/05/22 03:00 98 Room Air 12/05/22 02:13 97 Room Air 12/05/22 02:04 12/05/22 01:21 95 Room Air 12/05/22 01:33 96 Room Air 12/05/22 01:33 96 Room Air Resident Activity Tracking Resident Involvement: Resident Care Provided Care Provided: Adult Hospital Medicine (6) Chronic kidney disease Chronic kidney disease stage: unspecified stage Qualified Code(s): N18.9 - Chronic kidney disease, unspecified (9) Hypertension Hypertension type: unspecified Qualified Code(s): I10 - Essential (primary) hypertension
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
[2022-12-05] MEDS ORDERED: fentaNYL citrate PF 100 MCG/2 ML VIAL ONE (11:13)
[2022-12-05] MEDS ORDERED: MIDAZOLAM HCL 1 MG/ML 2ML VIAL ONE (11:13)
[2022-12-05] MEDS ORDERED: LIDOCAINE 1% LOCAL 20 ML VIAL ONE (11:13)
[2022-12-05 11:35] LABS: Partial Thromboplastin Ratio > 4.9
[2022-12-05] MEDS ORDERED: HEPARIN (PORCINE) 1000 UNIT/ML 10 ML (CATH LAB USE ONLY) ONE (11:41)
[2022-12-05 11:45] LABS: Partial Thromboplastin Time > 139.0 Seconds (21.0-31.0)
--- NOTE | 2022-12-05 12:26 | Pre Anesthesia Assessment ---
Date of Service December 05, 2022 Pre Sedation Assessment Vital Signs Temp Pulse Pulse Resp BP BP BP 12/05/22 11:14 71 18 154/75 H 12/05/22 07:00 78 12/05/22 07:48 36.6 C 68 14 142/70 H 12/05/22 05:14 85 12/05/22 05:34 36.7 C 80 15 165/82 H 12/05/22 04:53 74 17 150/74 H 12/05/22 03:00 68 12 136/74 12/05/22 02:13 67 20 12/05/22 02:04 76 12/05/22 01:21 12/05/22 01:33 77 17 125/70 12/05/22 01:33 37.0 C 75 13 125/70 Pulse Ox O2 Del Method 12/05/22 11:14 97 Room Air 12/05/22 07:00 12/05/22 07:48 98 Room Air 12/05/22 05:14 12/05/22 05:34 98 Room Air 12/05/22 04:53 96 Room Air 12/05/22 03:00 98 Room Air 12/05/22 02:13 97 Room Air 12/05/22 02:04 12/05/22 01:21 95 Room Air 12/05/22 01:33 96 Room Air 12/05/22 01:33 96 Room Air Cardiovascular Additional Comments: RRR, SM Respiratory normal respiratory effort, lungs clear to auscultation Pre-Sedation Airway Assessment Smoking Status: Former smoker Hx Sleep Apnea: Yes Short, Thick Neck: No Thyromental Distance: > or= 3.5 Finger Breadths Oral Cavity: + Loose Teeth, + Chipped Teeth and + Dental Abnormalities Mallampati Class: II ASA: ASA3 NPO Status Date of Last Intake of Fluids: 12/05/22 Time of Last Intake of Fluids: 07:00 Date of Last Intake of Solid Food: 12/04/22 Time of Last Intake of Solid Foods: 23:00 Notes The planned sedation has been discussed with the patient. Informed Consent was obtained. I have identified the patient, determined the appropriateness of sedation and have assessed the patient immediately prior to the procedure. All medicine(s) and interventions are by my order.
--- NOTE | 2022-12-05 12:28 | Post Anesthesia Assessment ---
Date of Service December 05, 2022 Post Sedation Assessment Vital Signs Temp Pulse Pulse Resp BP BP BP 12/05/22 11:14 71 18 154/75 H 12/05/22 07:00 78 12/05/22 07:48 36.6 C 68 14 142/70 H 12/05/22 05:14 85 12/05/22 05:34 36.7 C 80 15 165/82 H 12/05/22 04:53 74 17 150/74 H 12/05/22 03:00 68 12 136/74 12/05/22 02:13 67 20 12/05/22 02:04 76 12/05/22 01:21 12/05/22 01:33 77 17 125/70 12/05/22 01:33 37.0 C 75 13 125/70 Pulse Ox O2 Del Method 12/05/22 11:14 97 Room Air 12/05/22 07:00 12/05/22 07:48 98 Room Air 12/05/22 05:14 12/05/22 05:34 98 Room Air 12/05/22 04:53 96 Room Air 12/05/22 03:00 98 Room Air 12/05/22 02:13 97 Room Air 12/05/22 02:04 12/05/22 01:21 95 Room Air 12/05/22 01:33 96 Room Air 12/05/22 01:33 96 Room Air Recovery Score Activity: Moves 4 extremities Respiration: Deep Breath/Cough Circulation: +/-20% PreAnes Value Consciousness: Fully Awake Oxygen Saturation: > 92% On Room Air Discharge Sedation Level of Care: Fast Track Phase II Post Sedation Plan On clinical assessment, the patient appears to have tolerated the sedation without complications. Patient is recovering as anticipated. Patient will continue to be monitored by nursing and may be discharged when sedation discharge criteria are met per below protocol. Upon Completions of procedure up to 15 minutes continue every 5 minute vital signs and the P.A.R. score; then discharge to a Phase I or Fast Track to Phase II per the following guidelines: * Discharge Patient to appropriate Phase II area if PAR is 8 or greater or return to pre- procedure baseline. The post - procedure orders will be as directed. * If PAR score is less than 8 or not return to pre-procedure baseline then patient will follow Phase I monitoring till PAR is reached for Phase II. The Phase I may be done in procedure room or may call to secure a Phase I area. * If naloxone or flumazenil are used for reversal, hold in Phase I for continued monitoring from when last reversal dose was given for a minimum of 60 minutes or longer pending the nurse and/or physician discretion of patient condition before discharge to Phase II. Please call the Sedation Physician to re-evaluate and complete post-note for discharge to Phase II area. Do NOT discharge from procedure sedation or Phase 1 until post- sedation evaluation note is complete by procedure /sedation MD Sedation Discharge Instructions to be given to the patient at discharge to home. [facility] [place] Procedure Codes (Charges) Indication for Procedure Indication for procedure: NSTEMI Sedation/Anesthesia Procedure 1: Sedation/Anesthesia: 39346 Mod Sedation by the same physician;Init15 Min Child Age 5 & Up (start 1141) Total Sedation Time (minutes): 32 Procedure 2: Sedation/Anesthesia: 60383 Mod Sedation by the same physician; Ea [id number] Minutes (end 1213) Total Sedation Time (minutes): 32
--- NOTE | 2022-12-05 12:40 | Cardiac Catheterization ---
[facility] Data: After School Program Director Cardiac Status Clinical evaluation leading to the procedure CAD Presenation: Non STEMI Anginal Classification: CCS IV Heart Failure: No Cardiogenic Shock within 24 Hours: No Cardiac Arrest within 24 Hours: No Imaging Studies Past 6 Months: No Stress Studies Past 6 Months: No Coronary Anatomy Dominant: Left Left Main (% Stenosis): Proximal (99%) LAD (% Stenosis): Ostial (99%) and Mid (100%) Circumflex (% Stenosis): Ostial (100%) Grafts - LAD (%): Normal Grafts - Circumflex (%): Normal Grafts - RCA (%): Ostial (Occluded) Grafts - Ramus (%): Ostial (Occluded) Diagnostic Physicians Name: Alok Miller MD, PhD Closure Device Percutaneous Entry Location: Femoral Closure Device: None-Manual Hold Recommendations: Medical Therapy and/or Counseling Intraprocedure Events Significant Disection: No Perforation: No Cardiac Cath Procedure Full Procedure Date December 05, 2022 Pre-Procedure Diagnosis Pre-Procedure Diagnosis: Non STEMI AUC Score AUC Score: 07 Post-Procedure Diagnosis Post-Procedure Diagnosis: Severe CAD Procedure(s) Performed Procedure(s) Performed: Coronary Angiography, Ultrasound Guided Vascular Access and Bypass Graft Angiography Instrument Installer Alok Miller MD, PhD Estimated Blood Loss Estimated Blood Loss: 10 ml Medication(s) Medication(s): Fentanyl, Lidocaine 1%, Nicardipine, Nitroglycerin and Versed Summary of Findings Brief description: Patient was brought to the cardiac catheterization suite where he was shaved and prepped in a sterile fashion. Sedated using IV Versed and fentanyl. Soft tissues of the right groin were anesthetized using 10 mils of 1% Xylocaine. Using the ultrasound for guidance (image saved), the right femoral artery was accessed and a 6 [place] femoral artery sheath was placed. All catheters were advanced and exchanged over a 0.035 J-tip wire. Left coronary angiography was performed using a 6 [place] JL 4 diagnostic catheter. Attempts at right coronary angiography were performed with a 6 [place] JR4 diagnostic catheter. SVG to obtuse marginal angiography was performed with the 6 [place] JR4 diagnostic catheter. RIVAS to LAD bypass graft angiography was performed with the 6 [place] JR4 diagnostic catheter. Diagnostic catheters were removed. Note: Because the patient has severely reduced GFR and IVP contrast limit and the RCA is known to be a small nondominant vessel, we did not make additional attempts to cannulate the RCA. Limited right femoral artery angiography was performed to evaluate access. The sheath was noted to be at the bifurcation. Additionally, ultrasound evaluation revealed extensive severe common femoral atherosclerosis. Therefore, ACT was checked and the femoral artery sheath was removed once less than 160 seconds. Manual compression was utilized to obtain hemostasis. This occurred in the recovery room as the initial ACT was over 185 seconds. This ended the case. Coronary and bypass graft angiography findings: LMT-vessel is severely calcified. Large caliber at the ostium but almost immediately severe subtotal occlusion of 99%. The vessel bifurcates into the LAD and circumflex. LAD-severely calcified in the proximal and mid segment. Moderately calcified distally. Proximal segment with subtotal occlusion of 99% and then the vessel appears 100% occluded in the midsegment. LCx-severely calcified throughout the AV groove vessel. 100% occluded at the ostium. RCA-moderate to severe calcification. Known to be small in caliber and nondominant. Unable to cannulate today. RIVAS to LAD-this is large caliber and tortuous. Distal anastomosis on the distal [place] LAD. Graft is widely patent. There is retrograde filling up the LAD to the mid segment. Diffuse mild to moderate disease in the mid segment. There is antegrade flow down the distal LAD which is small in caliber and 90% stenosed. It provides an apical branch and a diagonal near the apex. There is also collateralization through the septals and off the apical LAD to the lateral myocardium. SVG to OM-large caliber and widely patent. Distal anastomosis on the mid OM. There is retrograde flow up the OM but the proximal vessel is 100% occluded. There is also antegrade flow to the [place] OM which has 3 major branches. The most superior of these branches is subtotally occluded. The other branches have mild diffuse disease. The [place] vessel provides collateralization to the left PDA. Summary: 1. 2 out of 4 bypass grafts remain widely patent. 2. Severe [place] vessel coronary artery disease not amenable to PCI. Poor targets for additional bypass. 3. Incidentally identified severe common femoral artery disease. Would consider additional work-up if patient symptomatic. 4. Continue to adjust his antianginal regimen. Consider review of cath findings with heart team at tertiary center to see if there are additional measures which they may be able to utilize to improve his myocardial perfusion which are not available at this institution. 5. Continue guideline directed medical therapy for secondary prevention of coronary artery disease. Hemodynamics Rest Ao:: 107/33 mmHg Final Ao: 114/33 mmHg LV: Not performed Recommendations Recommendations: Medical Therapy and/or Counseling Radiation Exposure (mGy) 618 mGy, fluoroscopy time 5.8 minutes Contrast (mls) 67 mL Anesthesia 1 mg IV Versed, 25 mcg IV fentanyl. Start time 1141, end time 1213 Procedural Complication(s) None Disposition Recovery Room\PACU I attest to the content of the Intraoperative Record and any orders documented therein. Any exceptions are noted below. [facility] [place] Card Cath Procedure Codes Cardiac Catheterization Procedure 1: Cardiovascular Cath Procedures: 25737 Coronaries and Grafts/IM (venous & atrial) Therapeutic Services & Ancillary Procedure 1: Cardiovascular Tx and Anc Procedures: 54499 Ultrasonic Guidance Vascular Access Moderate Sedation Procedure 1: Sedation/Anesthesia: 23506 Mod Sedation by the same physician;Init15 Min Child Age 5 & Up (Start 1141) Procedure 2: Sedation/Anesthesia: 50947 Mod Sedation by the same physician; Ea [id number] Minutes (end 1213) PG Care Time/CCT Total # of Minutes Spent Total Time Spent with Patient: Total time spent is greater than 50% in coordination of care (as documented) at patient's floor/unit and/or counseling patient:
[2022-12-05] MEDS: NITROGLYCERIN 2% OINTMENT 30GM TUBE EXT SCH ×2 (14:37→19:45)
--- NOTE | 2022-12-05 15:18 | XCELERA ---
[id number]
--- NOTE | 2022-12-05 17:54 | Electrocardiogram Report ---
Test Reason : Blood Pressure : / mmHG Vent. Rate : 079 BPM Atrial Rate : 079 BPM P-R Int : 268 ms QRS Dur : 138 ms QT Int : 430 ms P-R-T Axes : 067 -36 106 degrees QTc Int : 493 ms Sinus rhythm with 1st degree A-V block Left axis deviation Left ventricular hypertrophy with QRS widening and repolarization abnormality Non-specific intra-ventricular conduction delay Abnormal ECG Confirmed by Wojciech Yung ([id number]) on 12/05/2022 5:53:47 PM Referred By: REFERRED SELF Confirmed By:Reji Yung
--- NOTE | 2022-12-05 17:55 | Electrocardiogram Report ---
Test Reason : Blood Pressure : / mmHG Vent. Rate : 076 BPM Atrial Rate : 076 BPM P-R Int : 268 ms QRS Dur : 140 ms QT Int : 436 ms P-R-T Axes : 055 -30 112 degrees QTc Int : 490 ms Sinus rhythm with 1st degree A-V block Left axis deviation Left ventricular hypertrophy with QRS widening and repolarization abnormality Non-specific intra-ventricular conduction delay Abnormal ECG When compared with ECG of 05-DEC-2022 04:01, (unconfirmed) NM interval has increased Left bundle branch block is no longer Present Confirmed by Wojciech Yung ([id number]) on 12/05/2022 5:54:59 PM Referred By: REFERRED SELF Confirmed By:Reji Yung
--- NOTE | 2022-12-05 17:55 | Electrocardiogram Report ---
Test Reason : Blood Pressure : / mmHG Vent. Rate : 075 BPM Atrial Rate : 075 BPM P-R Int : 264 ms QRS Dur : 142 ms QT Int : 428 ms P-R-T Axes : 043 -29 107 degrees QTc Int : 477 ms Sinus rhythm with 1st degree A-V block Non-specific intra-ventricular conduction delay Abnormal ECG When compared with ECG of 05-DEC-2022 05:19, (unconfirmed) Left bundle branch block is now Present Confirmed by Wojciech Yung ([id number]) on 12/05/2022 5:55:48 PM Referred By: REFERRED SELF Confirmed By:Reji Yung
--- NOTE | 2022-12-05 18:00 | Electrocardiogram Report ---
Test Reason : Blood Pressure : / mmHG Vent. Rate : 089 BPM Atrial Rate : 089 BPM P-R Int : 204 ms QRS Dur : 152 ms QT Int : 388 ms P-R-T Axes : 000 -44 125 degrees QTc Int : 472 ms Normal sinus rhythm Left axis deviation Non-specific intra-ventricular conduction delay Abnormal ECG When compared with ECG of 05-DEC-2022 01:31, (unconfirmed) NH interval has decreased Confirmed by Wojciech Yung ([id number]) on 12/05/2022 6:00:15 PM Referred By: REFERRED SELF Confirmed By:Reji Yung
[2022-12-05] MEDS: ATORVASTATIN 40 MG TAB PO SCH (19:55)
[2022-12-06] MEDS: NITROGLYCERIN 2% OINTMENT 30GM TUBE EXT SCH ×4 (01:28→19:28)
[2022-12-06] MEDS: PANTOprazole 40 MG TAB PO SCH (05:51)
[2022-12-06 06:46] LABS: Hematocrit (blood only) 32.7 % (42.0-52.0); Hemoglobin 11.1 g/dl (14.0-18.0); Mean Corpuscular Hemoglobin 30.6 pg (25.0-34.0); Mean Corpuscular Hgb Conc 33.9 g/dL (32.0-36.0); Mean Corpuscular Volume 90.1 fL (80.0-100.0); Mean Platelet Volume 9.4 fL (9.4-12.4); Platelet Count 127 K/uL (130-400); RDW Coefficient of Variation 13.2 % (11.5-14.5); RDW Standard Deviation 43.2 fL (36.4-46.3); Red Blood Count 3.63 M/uL (4.70-6.10); White Blood Count 5.97 K/ul (4.8-10.8)
[2022-12-06 07:16] LABS: Partial Thromboplastin Ratio 0.9; Partial Thromboplastin Time 24.3 Seconds (21.0-31.0)
[2022-12-06 07:19] LABS: BUN Creatinine Ratio 15.3 (10-20); Calcium 9.1 mg/dl (8.6-10.3); Creatinine Clr Calc Pharmacy 32.1 ml/min; Est GFR (African American) 27.8 ml/min; Potassium 3.7 mmol/L (3.5-5.1)
--- NOTE | 2022-12-06 08:01 | Billing Data ---
Date of Service December 05, 2022 Coding Level of Care Code 77493 INT INP/OBS CARE
[2022-12-06] MEDS: INSULIN ASPART PER UNIT CHARGE SC SCH ×4 (08:36→21:05)
[2022-12-06] MEDS: LANTUS PER UNIT CHARGE SQ SCH ×2 (08:38→21:00)
[2022-12-06] MEDS: FUROSEMIDE 80 MG TAB PO SCH (08:39)
[2022-12-06] MEDS: ISOSORBIDE MONO EXTENDED REL 60 MG TABCR PO SCH (08:39)
[2022-12-06] MEDS: FAMOTIDINE 20 MG TAB PO SCH (08:39)
[2022-12-06] MEDS: CLOPIDOGREL BISULFATE 75 MG TAB PO SCH (08:39)
[2022-12-06] MEDS: METOCLOPRAMIDE HCL 10 MG TABLET PO SCH ×2 (08:39→20:49)
[2022-12-06] MEDS: TAMSULOSIN HCL 0.4 MG CAP PO SCH (08:39)
[2022-12-06] MEDS: METOPROLOL SUCC 50MG EXT REL TAB PO SCH ×2 (08:39→20:47)
[2022-12-06] MEDS: RANOLAZINE 500 MG ER TAB PO SCH ×2 (08:39→20:48)
[2022-12-06] MEDS: rOPINIRole HCL 0.25 MG TABLET PO SCH ×3 (08:39→20:47)
[2022-12-06] MEDS: ASPIRIN 81 MG ECTAB PO SCH (08:40)
--- NOTE | 2022-12-06 13:14 | Hospitalist Progress Note ---
Date of Service December 06, 2022 Assessment & Plan (1) NSTEMI (non-ST elevated myocardial infarction): Plan: Pt is a 67 yo male with PMH CKD3 CABGx4 in 2003, CHF, DM2 with neuropathy, depression, GERD, gastroparesis, HTN HLD Parkinson's, CAD, and JERMAIN here for chest pain. NSTEMI - per pt, hx of 5 prior MIs with CABG - EKG showed LBBB; trop elevated to 900; s/p heparin drip - echo showed normal EF, mild LVH, and mild - continue with nitro SL PRN, morphine PRN, and nitro patch - per cardio: OOB, ambulate, and monitor for further symptoms (?pending discussion with tertiary center for possible interventions) - further medical management of MIs per cardiology CHF/hx of CAD -continue aspirin, plavix, and lasix HTN -continue isosorbide mononitrate, metoprolol, and ranolazine - continue holding diltiazem HLD - continue atorvastatin GERD, gastroparesis -continue famotidine, metoclopramide, and protonix DM2 - ordered SSI CKD3 - creat 2.78, near baseline - avoid nephrotoxic medication BPH - continue tamsulosin Parkinson's disease - continue ropinirole FEN: carb consistent Code Status: Full DVT PPX: holding in light of hematoma from cath, will plan to add back tomorrow PT/OT: ordered Dispo: PCU (2) Diabetes: (3) Acid reflux disease: (4) Depression: (5) Benign prostate hyperplasia: (6) Chronic kidney disease: (7) Chronic systolic congestive heart failure: (8) Hyperlipidemia: (9) Hypertension: (10) Parkinsons disease: (11) Arteriosclerotic vascular disease: Admission and Anticipated Discharge Date Admission Date: December 05, 2022 Supervising Physician Co-Signing Physician Notes ATTESTATION I also saw the patient and confirmed madsen portions of the history and exam. I agree with the impression and plan in the resident documentation, and as summarized below. Patient without chest pain overnight. He is feeling better this morningno recurrent chest pain. Tolerated breakfast. Has really not been out of bed other than sitting at bedside edge. EXAM 120/58, 68, 18, 36.9, 99% room air Alert and oriented. Unfortunately chest pain at rest this morning. Heart rate is regular, 2/6 systolic ejection murmur appreciated. Abdomen soft and nontender Extremities without edema DATA Labs Hemoglobin 11.1, platelet count 127 Sodium 141, potassium 3.7, BUN 40, creatinine 2.61 IMPRESSION & PLAN Acute non-ST elevation myocardial infarction Cardiac catheterization results as noted above Cardiology consultation appreciated; medical management versus discussion with tertiary care center pending Fortunately no recurrent chest pain at rest; we will see how he does with activity Hypokalemia Improved with repletion Additional per resident documentation Subjective Pt states he had no further chest pain overnight. He has not been up and walking around yet. He denies nausea, dizziness, and SOB. Review of Systems Review of Systems: As per HPI Physical Exam Physical Exam: Constitutional: well appearing, no acute distress HEENT: normocephalic, no conjunctival injection CV: RRR, no murmur, minimal 1+ pitting edema of bilateral feet Respiratory: CTA bilaterally. No rhonchi, wheezes, or crackles. No increased work of breathing MSK: no gross deformities noted Skin: bruising noted on bilateral upper extremities and at right inguinal region secondary to cath yesterday Neuro: alert, oriented, no FND noted Psych: mood and affect congruent Results & Data Results & Data Vital Signs (Past 12 Hours) Vital Signs Temp Pulse Pulse Resp BP BP Pulse Ox 12/06/22 11:24 36.9 C 68 18 120/58 L 99 12/06/22 07:00 53 L 12/06/22 08:09 36.9 C 60 18 115/52 L 95 12/06/22 06:30 58 L 10 L 96 12/06/22 06:00 58 L 15 144/69 H 96 12/06/22 05:30 58 L 5 L 153/70 H 96 12/06/22 05:00 72 14 156/80 H 95 12/06/22 04:30 60 16 155/72 H 97 12/06/22 04:00 59 L 14 136/67 97 12/06/22 03:31 73 18 151/73 H 96 12/06/22 03:30 79 16 96 12/06/22 03:00 61 13 159/78 H 12/06/22 05:37 12/06/22 03:24 36.6 C 53 L 13 159/78 H 97 12/06/22 02:30 61 17 12/06/22 02:30 154/75 H 12/06/22 02:00 54 L 14 12/06/22 02:00 151/80 H 12/06/22 01:30 56 L 19 12/06/22 01:30 132/70 12/06/22 01:20 53 L 16 Pulse Ox O2 Del Method O2 Del Method 12/06/22 11:24 Room Air 12/06/22 07:00 12/06/22 08:09 Room Air 12/06/22 06:30 12/06/22 06:00 12/06/22 05:30 12/06/22 05:00 12/06/22 04:30 12/06/22 04:00 12/06/22 03:31 12/06/22 03:30 12/06/22 03:00 12/06/22 05:37 96 Room Air 12/06/22 03:24 CPAP 12/06/22 02:30 12/06/22 02:30 12/06/22 02:00 12/06/22 02:00 12/06/22 01:30 12/06/22 01:30 12/06/22 01:20 Resident Activity Tracking Resident Involvement: Resident Care Provided Care Provided: Adult Hospital Medicine (6) Chronic kidney disease Chronic kidney disease stage: unspecified stage Qualified Code(s): N18.9 - Chronic kidney disease, unspecified (9) Hypertension Hypertension type: unspecified Qualified Code(s): I10 - Essential (primary) hypertension
[2022-12-06] MEDS: ATORVASTATIN 40 MG TAB PO SCH (20:49)
[2022-12-07] MEDS: NITROGLYCERIN 2% OINTMENT 30GM TUBE EXT SCH ×4 (01:16→19:43)
[2022-12-07] MEDS: PANTOprazole 40 MG TAB PO SCH (05:53)
[2022-12-07 06:54] LABS: Hematocrit (blood only) 29.6 % (42.0-52.0); Hemoglobin 10.3 g/dl (14.0-18.0); Mean Corpuscular Hgb Conc 34.8 g/dL (32.0-36.0); Mean Corpuscular Volume 89.2 fL (80.0-100.0); Mean Platelet Volume 8.9 fL (9.4-12.4); Platelet Count 100 K/uL (130-400); RDW Standard Deviation 42.3 fL (36.4-46.3); Red Blood Count 3.32 M/uL (4.70-6.10); White Blood Count 5.65 K/ul (4.8-10.8)
[2022-12-07 07:09] LABS: BUN Creatinine Ratio 15.8 (10-20); Calcium 8.7 mg/dl (8.6-10.3); Creatinine Clr Calc Pharmacy 27.1 ml/min; Est GFR (African American) 22.6 ml/min; Est GFR (Non-African American) 19.5 ml/min; Potassium 3.7 mmol/L (3.5-5.1)
[2022-12-07] MEDS ORDERED: LACTATED RINGER'S 250 ML IV ONE (07:21)
--- NOTE | 2022-12-07 07:26 | Hospitalist Progress Note ---
Date of Service December 07, 2022 Assessment & Plan (1) NSTEMI (non-ST elevated myocardial infarction): Plan: Pt is a 67 yo male with PMH CKD3 CABGx4 in 2003, CHF, DM2 with neuropathy, depression, GERD, gastroparesis, HTN HLD Parkinson's, CAD, and JERMAIN here for chest pain. NSTEMI - per pt, hx of 5 prior MIs with CABG - EKG showed LBBB; trop elevated to 900; s/p heparin drip - echo showed normal EF, mild LVH, and mild - continue with nitro SL PRN, morphine PRN, and nitro patch; pt still having chest pain at rest - awaiting cardiology input for further medical management ANJALI on CKD - Cr 3.10 this AM (baseline ~2.3-2.6)- most likely d/t dye from cardiac cath - hold lasix this AM, cautious with fluids considering hx of HF and recent MA (although recent echo showed normal LV systolic function with EF 55-60%) - given 250 cc at 80 mL/hr; will consider doing a second 250cc bag this afternoon; encourage PO fluids CHF/hx of CAD - continue aspirin, plavix - hold lasix as above HTN - continue isosorbide mononitrate, metoprolol, and ranolazine - continue holding diltiazem HLD - continue atorvastatin GERD, gastroparesis -continue famotidine, metoclopramide, and protonix DM2 - ordered SSI BPH - continue tamsulosin Parkinson's disease - continue ropinirole FEN: carb consistent Code Status: Full VTE ppx: lovenox PT/OT: ordered Dispo: PCU (2) Diabetes: (3) Acid reflux disease: (4) Depression: (5) Benign prostate hyperplasia: (6) Chronic kidney disease: (7) Chronic systolic congestive heart failure: (8) Hyperlipidemia: (9) Hypertension: (10) Parkinsons disease: (11) Arteriosclerotic vascular disease: Admission and Anticipated Discharge Date Admission Date: December 05, 2022 Supervising Physician Co-Signing Physician Notes ATTESTATION I also saw the patient and confirmed madsen portions of the history and exam. I agree with the impression and plan in the resident documentation, and as summarized below. I also discussed the case with cardiology. Unfortunate morning, the patient developed chest pain when ambulating to the bathroom. Upon our exam this morning, he had continued pain at rest. EXAM 132/70, 72, 18, 37, 97% room air Alert and oriented. Unfortunately chest pain at rest this morning. Heart rate is regular, 2/6 systolic ejection murmur appreciated. Abdomen soft and nontender Extremities without edema DATA Labs Hemoglobin 10.3, platelet count 100 Sodium 138, testing 3.7, BUN 49, creatinine 3.1 IMPRESSION & PLAN Acute non-ST elevation myocardial infarction Cardiology consultation appreciated; medical management versus discussion with tertiary care center pending Unfortunately, today his chest pain at rest, and with his home medications, not really much room in terms of titration Discussed with cardiology Hypokalemia Improved with repletion BMP in a.m. ANJALI on chronic CKD Gentle hydration BMP in a.m. Thrombocytopenia History of previous Repeat CBC in a.m. Additional per resident documentation Subjective Pt states he had some chest pain this morning while walking to the bathroom this AM. He had some relief for about 40 minutes but then it seemed to come back while sitting in bed. Review of Systems Review of Systems: As per HPI Physical Exam Physical Exam: Constitutional: well appearing, no acute distress HEENT: normocephalic, no conjunctival injection CV: RRR, no murmur, no LE edema Respiratory: CTA bilaterally. No rhonchi, wheezes, or crackles. No increased work of breathing MSK: no gross deformities noted Skin: warm, dry, no rashes Neuro: alert, oriented, no FND noted Psych: mood and affect congruent Results & Data Results & Data Vital Signs (Past 12 Hours) Vital Signs Temp Pulse Pulse Resp BP Pulse Ox O2 Del Method 12/07/22 03:32 37.0 C 67 17 128/61 98 CPAP 12/06/22 22:00 59 L 12/06/22 22:50 36.5 C 60 17 135/60 97 Room Air 12/06/22 20:50 66 Resident Activity Tracking Resident Involvement: Resident Care Provided Care Provided: Adult Hospital Medicine (6) Chronic kidney disease Chronic kidney disease stage: unspecified stage Qualified Code(s): N18.9 - Chronic kidney disease, unspecified (9) Hypertension Hypertension type: unspecified Qualified Code(s): I10 - Essential (primary) hypertension
[2022-12-07] MEDS: INSULIN ASPART PER UNIT CHARGE SC SCH ×4 (07:49→21:46)
[2022-12-07] MEDS: TAMSULOSIN HCL 0.4 MG CAP PO SCH (08:02)
[2022-12-07] MEDS: ISOSORBIDE MONO EXTENDED REL 60 MG TABCR PO SCH (08:02)
[2022-12-07] MEDS: LANTUS PER UNIT CHARGE SQ SCH ×2 (08:02→22:07)
[2022-12-07] MEDS: METOCLOPRAMIDE HCL 10 MG TABLET PO SCH ×2 (08:02→21:49)
[2022-12-07] MEDS: RANOLAZINE 500 MG ER TAB PO SCH ×2 (08:02→21:48)
[2022-12-07] MEDS: FAMOTIDINE 20 MG TAB PO SCH (08:02)
[2022-12-07] MEDS: METOPROLOL SUCC 50MG EXT REL TAB PO SCH ×2 (08:03→21:49)
[2022-12-07] MEDS: ASPIRIN 81 MG ECTAB PO SCH (08:03)
[2022-12-07] MEDS: CLOPIDOGREL BISULFATE 75 MG TAB PO SCH (08:03)
[2022-12-07] MEDS: rOPINIRole HCL 0.25 MG TABLET PO SCH ×3 (08:03→21:49)
[2022-12-07] MEDS ORDERED: ENOXAPARIN INJ 30 MG/0.3 ML SYR SQ SCH (10:00)
[2022-12-07] MEDS: ATORVASTATIN 40 MG TAB PO SCH (21:49)
[2022-12-08] MEDS: NITROGLYCERIN 2% OINTMENT 30GM TUBE EXT SCH ×4 (01:17→19:40)
[2022-12-08] MEDS: PANTOprazole 40 MG TAB PO SCH (06:02)
[2022-12-08 06:30] LABS: Hematocrit (blood only) 29.2 % (42.0-52.0); Hemoglobin 9.9 g/dl (14.0-18.0); Mean Corpuscular Hemoglobin 30.7 pg (25.0-34.0); Mean Corpuscular Hgb Conc 33.9 g/dL (32.0-36.0); Mean Corpuscular Volume 90.4 fL (80.0-100.0); Mean Platelet Volume 9.1 fL (9.4-12.4); Platelet Count 106 K/uL (130-400); RDW Coefficient of Variation 12.7 % (11.5-14.5); RDW Standard Deviation 41.3 fL (36.4-46.3); Red Blood Count 3.23 M/uL (4.70-6.10); White Blood Count 5.01 K/ul (4.8-10.8)
[2022-12-08 06:48] LABS: BUN Creatinine Ratio 17.1 (10-20); Calcium 8.8 mg/dl (8.6-10.3); Creatinine Clr Calc Pharmacy 29.4 ml/min; Est GFR (African American) 24.9 ml/min; Est GFR (Non-African American) 21.5 ml/min; Potassium 3.8 mmol/L (3.5-5.1)
[2022-12-08] MEDS: MoRPHine SULFATE 2 MG/ML CARP IV PRN (07:05)
[2022-12-08] MEDS ORDERED: NITROGLYCERIN/D5W 100 MCG/ML BTL ONE (07:25)
[2022-12-08] MEDS ORDERED: HEPARIN 25000 UNIT/500 ML D5W IV ONE (07:25)
[2022-12-08] MEDS ORDERED: FUROSEMIDE 40 MG/4 ML VIAL IV ONE (07:31)
[2022-12-08] MEDS ORDERED: HEPARIN SODIUM/DEXTROSE 25,000 UNITS/500 ML BAG IV SCH (07:45)
[2022-12-08] MEDS ORDERED: STAT IV Infusion **Titration per Protocol STA (07:46)
[2022-12-08] MEDS: NITROGLYCERIN/D5W 100MCG/ML 250 ML IV SCH (08:01)
[2022-12-08] MEDS ORDERED: HEPARIN SOD (PORCINE) 1000 UNIT/ML IV ONE (08:25)
[2022-12-08] MEDS: INSULIN ASPART PER UNIT CHARGE SC SCH ×4 (08:57→21:07)
[2022-12-08] MEDS: ISOSORBIDE MONO EXTENDED REL 60 MG TABCR PO SCH (09:52)
[2022-12-08] MEDS: FAMOTIDINE 20 MG TAB PO SCH (09:52)
[2022-12-08] MEDS: ASPIRIN 81 MG ECTAB PO SCH (09:52)
[2022-12-08] MEDS: METOPROLOL SUCC 50MG EXT REL TAB PO SCH ×2 (09:52→20:40)
[2022-12-08] MEDS: CLOPIDOGREL BISULFATE 75 MG TAB PO SCH (09:52)
[2022-12-08] MEDS: METOCLOPRAMIDE HCL 10 MG TABLET PO SCH ×2 (09:52→20:39)
[2022-12-08] MEDS: TAMSULOSIN HCL 0.4 MG CAP PO SCH (09:52)
[2022-12-08] MEDS: rOPINIRole HCL 0.25 MG TABLET PO SCH ×3 (09:53→20:38)
[2022-12-08] MEDS: RANOLAZINE 500 MG ER TAB PO SCH ×2 (09:53→20:40)
[2022-12-08] MEDS: LANTUS PER UNIT CHARGE SQ SCH ×2 (09:57→21:10)
--- NOTE | 2022-12-08 12:41 | Hospitalist Progress Note ---
Date of Service December 08, 2022 Assessment & Plan (1) NSTEMI (non-ST elevated myocardial infarction): Plan: Pt is a 67 yo male with PMH CKD3 CABGx4 in 2003, CHF, DM2 with neuropathy, depression, GERD, gastroparesis, HTN HLD Parkinson's, CAD, and JERMAIN here for chest pain. NSTEMI - per pt, hx of 5 prior MIs with CABG - EKG showed LBBB; trop elevated to 900 - echo showed normal EF, mild LVH, and mild - pt restarted on heparin drip and nitro drip this AM with improvement in pain; cardiology in current discussion for possible transfer to tertiary center ANJALI on CKD - Cr peaked at 3.10 (baseline ~2.3-2.6); down to 2.86 this AM after holding lasix (12/07) and 250cc of fluids - as pt fluid overloaded this AM, given IV lasix 40 mg with improvement in his breathing status; would recommend continuation of home lasix dosing if Cr allows - continue to monitor Cr, avoid fluids CHF/hx of CAD - continue aspirin, plavix - lasix as above HTN - continue isosorbide mononitrate, metoprolol, and ranolazine - continue holding diltiazem HLD - continue atorvastatin GERD, gastroparesis -continue famotidine, metoclopramide, and protonix DM2 - ordered SSI BPH - continue tamsulosin Parkinson's disease - continue ropinirole FEN: carb consistent Code Status: full VTE ppx: hep drip PT/OT: ordered Dispo: PCU (2) Diabetes: (3) Acid reflux disease: (4) Depression: (5) Benign prostate hyperplasia: (6) Chronic kidney disease: (7) Chronic systolic congestive heart failure: (8) Hyperlipidemia: (9) Hypertension: (10) Parkinsons disease: (11) Arteriosclerotic vascular disease: Admission and Anticipated Discharge Date Admission Date: December 05, 2022 Supervising Physician Co-Signing Physician Notes I personally examined the patient and verified all madsen points of history and exam, discussed case, and agree with decision making and plan documented by Dr. Melendez. Evaluated patient in afternoon following episode of chest pain and NSTEMI requiring heparin drip and nitroglycerin drip. Patient was feeling much better at that time and just had lunch. Unfortunately, patient is not a candidate for transfer at this time to another facility in the setting of his advanced cardiac disease. Palliative care was consulted and patient and his family wish to proceed with comfort care at this time with hope of discharge home on hospice. Patient is at present now DNR/DNI. Subjective Pt had another episode of severe chest pain this morning in addition to increased oxygen requirement. Upon re evaluation later in the day, pt's chest pain was improved and his oxygen requirement decreased. Review of Systems Review of Systems: As per HPI Physical Exam Physical Exam: Constitutional: well appearing, no acute distress HEENT: normocephalic, no conjunctival injection CV: RRR, no murmur, no LE edema Respiratory: Rhonchus sounds heart throughout bilateral lung hopper, improved on re-examination later in the morning. No wheezes or crackles. Mildly increased work of breathing MSK: no gross deformities noted Skin: warm, dry, no rashes Neuro: alert, oriented, no FND noted Psych: mood and affect congruent Results & Data Results & Data Vital Signs (Past 12 Hours) Vital Signs Temp Pulse Pulse Pulse Resp BP BP 12/08/22 10:55 36.5 C 74 14 122/66 12/08/22 09:30 80 15 12/08/22 09:30 133/73 12/08/22 09:00 81 16 12/08/22 09:00 129/71 12/08/22 08:30 82 18 12/08/22 08:30 119/70 12/08/22 08:29 37 C 82 14 118/74 12/08/22 07:00 71 12/08/22 07:55 83 16 133/78 12/08/22 07:20 91 H 20 180/93 H 12/08/22 07:15 98 H 24 12/08/22 07:05 36.6 C 104 H 18 176/105 H 12/08/22 05:19 12/08/22 03:08 36.6 C 68 18 131/76 Pulse Ox Pulse Ox O2 Del Method O2 Del Method O2 Flow Rate 12/08/22 10:55 97 Nasal Cannula 12/08/22 09:30 97 12/08/22 09:30 12/08/22 09:00 97 Nasal Cannula 4 12/08/22 09:00 12/08/22 08:30 96 12/08/22 08:30 12/08/22 08:29 95 Oxymask 10 12/08/22 07:00 12/08/22 07:55 92 Oxymask 10 12/08/22 07:20 90 Oxymask 10 12/08/22 07:15 72 L Nasal Cannula 2 12/08/22 07:05 92 Room Air 12/08/22 05:19 95 Room Air 12/08/22 03:08 98 CPAP Resident Activity Tracking Resident Involvement: Resident Care Provided Care Provided: Adult Hospital Medicine (6) Chronic kidney disease Chronic kidney disease stage: unspecified stage Qualified Code(s): N18.9 - Chronic kidney disease, unspecified (9) Hypertension Hypertension type: unspecified Qualified Code(s): I10 - Essential (primary) hypertension
[2022-12-08] MEDS ORDERED: LORazepam 2 MG/1 ML VIAL IV PRN (14:44)
[2022-12-08] MEDS ORDERED: GLYCOPYRROLATE 0.2 MG/ML VIAL IV PRN (14:44)
[2022-12-08] MEDS ORDERED: MoRPHine SULFATE 2 MG/ML CARP IV PRN (14:44)
[2022-12-08] MEDS ORDERED: MoRPHine SULFATE 10 MG/0.5 ML UDP PO PRN (14:53)
[2022-12-08] MEDS ORDERED: MoRPHine SULFATE 10 MG/ML CARP/VIAL IV PRN (14:53)
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
--- NOTE | 2022-12-08 17:50 | Electrocardiogram Report ---
Test Reason : Blood Pressure : / mmHG Vent. Rate : 104 BPM Atrial Rate : 104 BPM P-R Int : 160 ms QRS Dur : 160 ms QT Int : 380 ms P-R-T Axes : 000 -38 124 degrees QTc Int : 499 ms Sinus tachycardia Left axis deviation Left bundle branch block Abnormal ECG When compared with ECG of 05-DEC-2022 06:16, MN interval has decreased Confirmed by Wojciech Yung ([id number]) on 12/08/2022 5:49:56 PM Referred By: REFERRED SELF Confirmed By:Reji Yung
[2022-12-08 18:56] LABS: Partial Thromboplastin Ratio > 4.9
[2022-12-08] MEDS ORDERED: [UNRECOGNIZED DRUG - REMARK] ONE (19:15)
[2022-12-08 19:17] LABS: Partial Thromboplastin Time > 139.0 Seconds (21.0-31.0)
[2022-12-08] MEDS: ATORVASTATIN 40 MG TAB PO SCH (20:39)
[2022-12-09] MEDS: NITROGLYCERIN 2% OINTMENT 30GM TUBE EXT SCH ×4 (01:47→21:46)
[2022-12-09] MEDS: PANTOprazole 40 MG TAB PO SCH (05:53)
--- NOTE | 2022-12-09 06:46 | Hospitalist Progress Note ---
Date of Service December 09, 2022 Assessment & Plan (1) NSTEMI (non-ST elevated myocardial infarction): Plan: Pt is a 67 yo male with PMH CKD3 CABGx4 in 2003, CHF, DM2 with neuropathy, depression, GERD, gastroparesis, HTN HLD Parkinson's, CAD, and JERMAIN here for chest pain. NSTEMI - per pt, hx of 5 prior MIs with CABG - EKG showed LBBB; trop elevated to 900 - echo showed normal EF, mild LVH, and mild - Cardiology initially consulted for possible transfer to tertiary center. The patient has severe heart failure with near occlusion of all vesicles and no further operative or interventional options at this time. We will try to optimize care. We will increase Ranexa from 1000 mg twice daily to 1500 mg twice daily. We will also start on Xarelto 2.5 mg twice daily. -Palliative consulted and transition to comfort care on 12/08. -We will try to transition from nitroglycerin to morphine. Ativan as needed for anxiety/myoclonus -Will have hospice conversation on 12/11. ANJALI on CKD - Cr peaked at 3.10 (baseline ~2.3-2.6); down to 2.86 this AM after holding lasix (12/07) and 250cc of fluids - as pt fluid overloaded this AM, given IV lasix 40 mg with improvement in his breathing status; would recommend continuation of home lasix dosing if Cr allows - Will hold off on continuing to trend given comfort care. CHF/hx of CAD - continue aspirin, plavix - lasix as above HTN - continue isosorbide mononitrate, metoprolol, and ranolazine - continue holding diltiazem HLD - continue atorvastatin GERD, gastroparesis -continue famotidine, metoclopramide, and protonix DM2 - ordered SSI BPH - continue tamsulosin Parkinson's disease - continue ropinirole FEN: carb consistent Code Status: full VTE ppx: Xarelto 2.5 mg twice daily PT/OT: ordered Dispo: MedSurg (2) Diabetes: (3) Acid reflux disease: (4) Depression: (5) Benign prostate hyperplasia: (6) Chronic kidney disease: (7) Chronic systolic congestive heart failure: (8) Hyperlipidemia: (9) Hypertension: (10) Parkinsons disease: (11) Arteriosclerotic vascular disease: Admission and Anticipated Discharge Date Admission Date: December 05, 2022 Supervising Physician Co-Signing Physician Notes I personally examined the patient and verified all madsen points of history and exam, discussed case, and agree with decision making and plan documented by Dr. Gonzalez. Evaluated patient at bedside, he had a couple episodes of some chest discomfort but overall states he is comfortable. Patient is now off heparin and nitroglycerin drips. Per cardiology recommendations, ranolazine was increased to 1500 mg twice daily and low-dose Xarelto 2.5 mg twice daily was started. Comfort care approach continues, patient and interested in hospice discussion on 12/11/2022 so patient can return home. Subjective Patient was seen bedside this morning. States that he is feeling better than he did yesterday. Having less chest pain than he did yesterday. Did have some discomfort in his chest overnight for about 20 minutes which has resolved. Currently requiring 2 L nasal cannula Review of Systems Review of Systems: All systems reviewed & are unremarkable except as noted in Subjective Physical Exam Physical Exam: Constitutional: well appearing, no acute distress HEENT: normocephalic, no conjunctival injection CV: RRR, no murmur, no LE edema Respiratory: CTABL, no wheezes/rales/rhonchi appreciated, no increased work of breathing MSK: no gross deformities noted Skin: warm, dry, no rashes Neuro: alert, oriented, no FND noted Psych: mood and affect congruent Results & Data Results & Data Vital Signs (Past 12 Hours) Vital Signs Temp Pulse Resp BP Pulse Ox O2 Del Method O2 Flow Rate 12/08/22 19:30 Nasal Cannula 2 12/08/22 19:00 36.5 C 65 17 114/69 97 Nasal Cannula 2 Resident Activity Tracking Resident Involvement: Resident Care Provided Care Provided: Adult Hospital Medicine (6) Chronic kidney disease Chronic kidney disease stage: unspecified stage Qualified Code(s): N18.9 - Chronic kidney disease, unspecified (9) Hypertension Hypertension type: unspecified Qualified Code(s): I10 - Essential (primary) hypertension
[2022-12-09] MEDS: INSULIN ASPART PER UNIT CHARGE SC SCH ×3 (09:23→18:36)
[2022-12-09] MEDS: LANTUS PER UNIT CHARGE SQ SCH (09:26)
[2022-12-09] MEDS: FAMOTIDINE 20 MG TAB PO SCH (09:27)
[2022-12-09] MEDS: METOCLOPRAMIDE HCL 10 MG TABLET PO SCH ×2 (09:28→21:37)
[2022-12-09] MEDS: RANOLAZINE 500 MG ER TAB PO SCH ×8 (09:28→21:38)
[2022-12-09] MEDS: METOPROLOL SUCC 50MG EXT REL TAB PO SCH ×2 (09:28→21:38)
[2022-12-09] MEDS: ISOSORBIDE MONO EXTENDED REL 60 MG TABCR PO SCH (09:30)
[2022-12-09] MEDS: CLOPIDOGREL BISULFATE 75 MG TAB PO SCH (09:30)
[2022-12-09] MEDS: rOPINIRole HCL 0.25 MG TABLET PO SCH ×3 (09:30→21:37)
[2022-12-09] MEDS: TAMSULOSIN HCL 0.4 MG CAP PO SCH (09:30)
[2022-12-09] MEDS: ASPIRIN 81 MG ECTAB PO SCH (09:31)
--- NOTE | 2022-12-09 12:13 | Cardiology Progress Note ---
Date of Service December 09, 2022 Assessment & Plan (1) Refractory angina pectoris: Plan: -stable off heparin and nitroglycerin drips. -continue metoprolol succinate, isosorbide mononitrate, aspirin, and Plavix. -consider increasing ranolazine to 1500 mg b.i.d. (aware this is above the maximum recommended dose). -start low-dose Xarelto at 2.5 mg b.i.d.. -if medical management fails, he might consider discussing an LVAD with Dr. Reddy at [place]. (2) NSTEMI (non-ST elevated myocardial infarction): Plan: -high sensitivity troponin peaked at 902. -medical management as above. (3) Coronary artery disease: Plan: -cardiac catheterization results similar to January 2009. -RIVAS to LAD, SVG to OM1 patent. -SVG to D2, SVG to left PDA occluded. -severe 3 vessel [place] disease. -Dr. Reddy at [place] said no intervention possible. -deemed inoperable in January 2009. (4) Hypertension: Plan: -adequate control on current regimen. (5) Hyperlipidemia: Plan: -continue atorvastatin. Admission and Anticipated Discharge Date Admission Date: December 05, 2022 Subjective The patient is resting comfortably in bed without angina pectoris or dyspnea. He did have an episode of angina yesterday afternoon. We have had long talk regarding medical management of his end-stage coronary artery disease. We have discussed the possibility of an LVAD. His was at the bedside. Physical Exam Physical Exam: In general this is a well-developed well-nourished white male in no acute distress. HEENT exam is negative. Neck is supple with full carotid upstrokes. There are no carotid bruits. No JVD. There is no thyromegaly. Cardiovascular exam reveals a regular rhythm with a normal S1-S2. Heart sounds are distant. A 2/6 basal systolic ejection murmurs noted. Chest reveals a well-healed midline scar. Lungs are clear without rales, rhonchi, or wheezes. Abdomen is soft and nontender without bruits. Extremities reveal intact radial artery and posterior tibial pulses bilaterally. There is no peripheral edema. Results & Data Vital Signs (Past 12 Hours) Vital Signs Temp Pulse Resp BP Pulse Ox O2 Del Method 12/09/22 08:10 36.4 C L 80 20 133/66 95 Room Air Diagnostic Findings vehicle monitor technician is benign. PG Care Time/CCT Total # of Minutes Spent Total Time Spent with Patient: Total time spent is greater than 50% in coordination of care (as documented) at patient's floor/unit and/or counseling patient: Coding Level of Care Code 34082 SUB INP/OBS CARE 3/50MIN Diagnoses Refractory angina pectoris I20.2 NSTEMI (non-ST elevated myocardial infarction) I21.4 Coronary artery disease I25.10 Hypertension I10 Hypertension type: unspecified Hyperlipidemia E78.5 (4) Hypertension Hypertension type: unspecified Qualified Code(s): I10 - Essential (primary) hypertension
[2022-12-09] MEDS: RIVAROXABAN 2.5 MG TAB PO SCH ×2 (13:22→21:38)
[2022-12-09] MEDS: NITROGLYCERIN/D5W 100MCG/ML 250 ML IV SCH (14:05)
[2022-12-09] MEDS ORDERED: INSULIN REGULAR 250 UNITS in SODIUM CHLORIDE 0.9% 247.5 ML IV SCH (18:00)
[2022-12-09] MEDS ORDERED: STAT IV STA (18:00)
[2022-12-09] MEDS ORDERED: INSULIN PROTOCOL GOAL RANGE ONE (18:00)
[2022-12-09] MEDS ORDERED: INSULIN ASPART PER UNIT CHARGE SC SCH (21:00)
[2022-12-09] MEDS: ATORVASTATIN 40 MG TAB PO SCH (21:37)
[2022-12-09] MEDS: NITROGLYCERIN SL 0.4 MG/TAB TAB SL PRN (22:26)
[2022-12-09] MEDS: MoRPHine SULFATE 10 MG/0.5 ML UDP PO PRN (22:32)
[2022-12-10] MEDS: MoRPHine SULFATE 10 MG/0.5 ML UDP PO PRN (02:47)
[2022-12-10] MEDS: NITROGLYCERIN 2% OINTMENT 30GM TUBE EXT SCH ×4 (04:07→21:47)
[2022-12-10] MEDS: PANTOprazole 40 MG TAB PO SCH (04:09)
[2022-12-10] MEDS ORDERED: Nursing to Pharmacy Communication SCH (05:15)
[2022-12-10] MEDS ORDERED: PHARMACY GLYCEMIC MGMT CONSULT PRN (06:30)
--- NOTE | 2022-12-10 06:52 | Hospitalist Progress Note ---
Date of Service December 10, 2022 Assessment & Plan (1) NSTEMI (non-ST elevated myocardial infarction): Plan: Pt is a 67 yo male with PMH CKD3 CABGx4 in 2003, CHF, DM2 with neuropathy, depression, GERD, gastroparesis, HTN HLD Parkinson's, CAD, and JERMAIN here for chest pain. NSTEMI - per pt, hx of 5 prior MIs with CABG - EKG showed LBBB; trop elevated to 900 - echo showed normal EF, mild LVH, and mild - Cardiology initially consulted for possible transfer to tertiary center. The patient has severe heart failure with near occlusion of all vesicles and no further operative or interventional options at this time. We will try to optimize care. -Continue Ranexa 1500 mg twice daily. Which is over the recommended dose. Though patient's symptoms warrant higher dose of Ranexa. -Continue on Xarelto 2.5 mg twice daily. -Palliative consulted and transition to comfort care on 12/08. -We will try to transition from nitroglycerin to morphine. Ativan as needed for anxiety/myoclonus -Will have hospice conversation on 12/11. - Patient continues to have refractory angina, will try to optimize reduction of pain as best as possible for patient. ANJALI on CKD - Cr peaked at 3.10 (baseline ~2.3-2.6); down to 2.86 this AM after holding lasix (12/07) and 250cc of fluids - as pt fluid overloaded this AM, given IV lasix 40 mg with improvement in his breathing status; breathing status okay at this time we will hold off on any further Lasix or checking creatinine given transition to comfort care. CHF/hx of CAD - continue aspirin, plavix - lasix as above HTN - continue isosorbide mononitrate, metoprolol, and ranolazine - continue holding diltiazem HLD - continue atorvastatin GERD, gastroparesis -continue famotidine, metoclopramide, and protonix DM2 -On currently on 40 units every morning. -Was on sliding scale at home but due to converting to comfort care will discontinue at this time. -May continue to use Dexcom for glucose checks and can make adjustments accordingly BPH - continue tamsulosin Parkinson's disease - continue ropinirole FEN: Regular Code Status: full VTE ppx: Xarelto 2.5 mg twice daily Dispo: [facility], awaiting hospice discussion on 12/11. (2) Diabetes: (3) Acid reflux disease: (4) Depression: (5) Benign prostate hyperplasia: (6) Chronic kidney disease: (7) Chronic systolic congestive heart failure: (8) Hyperlipidemia: (9) Hypertension: (10) Parkinsons disease: (11) Arteriosclerotic vascular disease: Admission and Anticipated Discharge Date Admission Date: December 05, 2022 Supervising Physician Co-Signing Physician Notes I personally examined the patient and verified all madsen points of history and exam, discussed case, and agree with decision making and plan documented by Dr. Gonzalez. Patient was resting comfortably in bed on exam, states he had 2 episodes overnight of chest pain that were relieved with oral morphine and nitroglycerin. Patient is hopeful to be discharged home, he and his had a conversation with palliative care on 12/08/2022 and plan was to be discharged home on hospice this week. We discussed the importance of focusing on his comfort and time with his . Patient declined engagement of client architect at this time. Subjective Patient was seen bedside this morning. Did have 2 episodes of chest pain overnight which lasted about 30 minutes. He had some relief with nitroglycerin. Denies any other issues or complaints at this time Review of Systems Review of Systems: All systems reviewed & are unremarkable except as noted in Subjective Physical Exam Physical Exam: Constitutional: well appearing, no acute distress HEENT: normocephalic, no conjunctival injection CV: RRR, no murmur, no LE edema Respiratory: CTABL, no wheezes/rales/rhonchi appreciated, no increased work of breathing MSK: no gross deformities noted Skin: warm, dry, no rashes Neuro: alert, oriented, no FND noted Psych: mood and affect congruent Results & Data Results & Data Vital Signs (Past 12 Hours) Vital Signs Temp Pulse Resp BP Pulse Ox O2 Del Method O2 Flow Rate 12/10/22 01:26 72 16 131/77 98 Nasal Cannula 2 12/09/22 21:00 Room Air 12/09/22 23:02 74 18 121/74 92 Nasal Cannula 2 12/09/22 22:36 82 18 148/83 H 94 Nasal Cannula 2 12/09/22 22:33 86 15 161/89 H 87 L Room Air 12/09/22 22:27 93 H 16 95 Room Air 12/09/22 21:36 36.7 C 63 17 117/70 95 Room Air Resident Activity Tracking Resident Involvement: Resident Care Provided Care Provided: Adult Hospital Medicine (6) Chronic kidney disease Chronic kidney disease stage: unspecified stage Qualified Code(s): N18.9 - Chronic kidney disease, unspecified (9) Hypertension Hypertension type: unspecified Qualified Code(s): I10 - Essential (primary) hypertension
[2022-12-10] MEDS ORDERED: NON-FORMULARY MEDICATION (Insulin Aspart U-100 [Novolog Flexpen U-100 Insulin] 100 unit/mL SQ SCH (08:00)
[2022-12-10] MEDS: ISOSORBIDE MONO EXTENDED REL 60 MG TABCR PO SCH (08:27)
[2022-12-10] MEDS: METOPROLOL SUCC 50MG EXT REL TAB PO SCH ×2 (08:27→23:15)
[2022-12-10] MEDS: ASPIRIN 81 MG ECTAB PO SCH (08:27)
[2022-12-10] MEDS: METOCLOPRAMIDE HCL 10 MG TABLET PO SCH ×3 (08:27→23:17)
[2022-12-10] MEDS: rOPINIRole HCL 0.25 MG TABLET PO SCH ×3 (08:27→23:15)
[2022-12-10] MEDS: RANOLAZINE 500 MG ER TAB PO SCH ×2 (08:28→23:16)
[2022-12-10] MEDS: TAMSULOSIN HCL 0.4 MG CAP PO SCH (08:29)
[2022-12-10] MEDS: CLOPIDOGREL BISULFATE 75 MG TAB PO SCH (08:29)
[2022-12-10] MEDS: RIVAROXABAN 2.5 MG TAB PO SCH ×2 (08:30→23:18)
[2022-12-10] MEDS: LANTUS PER UNIT CHARGE SC SCH (08:36)
[2022-12-10] MEDS: FAMOTIDINE 20 MG TAB PO SCH (08:36)
--- NOTE | 2022-12-10 10:42 | Cardiology Progress Note ---
Date of Service December 10, 2022 Assessment & Plan (1) Refractory angina pectoris: Plan: -recurrent episodes overnight. -continue metoprolol succinate, isosorbide mononitrate, aspirin, and Plavix. -ranolazine increased to 1500 mg b.i.d. (aware this is above the maximum recommended dose). -started low-dose Xarelto at 2.5 mg b.i.d.. -if medical management fails, he might consider discussing an LVAD with Dr. Reddy at [place]. (2) NSTEMI (non-ST elevated myocardial infarction): Plan: -high sensitivity troponin peaked at 902. -medical management as above. (3) Coronary artery disease: Plan: -cardiac catheterization results similar to January 2009. -RIVAS to LAD, SVG to OM1 patent. -SVG to D2, SVG to left PDA occluded. -severe 3 vessel [place] disease. -Dr. Reddy at [place] said no intervention possible. -deemed inoperable in January 2009. (4) Hypertension: Plan: -adequate control on current regimen. (5) Hyperlipidemia: Plan: -continue atorvastatin. Admission and Anticipated Discharge Date Admission Date: December 05, 2022 Subjective The patient is resting comfortably in bed this morning without complaints of chest pain or dyspnea. Did have several episodes of angina last T requiring sublingual nitroglycerin. Physical Exam Physical Exam: In general this is a well-developed well-nourished white male in no acute distress. HEENT exam is negative. Neck is supple with full carotid upstrokes. There are no carotid bruits. No JVD. There is no thyromegaly. Cardiovascular exam reveals a regular rhythm with a normal S1-S2. Heart sounds are distant. A 2/6 basal systolic ejection murmurs noted. Chest reveals a well-healed midline scar. Lungs are clear without rales, rhonchi, or wheezes. Abdomen is soft and nontender without bruits. Extremities reveal intact radial artery and posterior tibial pulses bilaterally. There is no peripheral edema. Results & Data Vital Signs (Past 12 Hours) Vital Signs Temp Pulse Resp BP Pulse Ox O2 Del Method O2 Flow Rate 12/10/22 07:33 Nasal Cannula 2 12/10/22 07:28 36.5 C 73 14 113/60 97 Nasal Cannula 2 12/10/22 01:26 72 16 131/77 98 Nasal Cannula 2 12/09/22 23:02 74 18 121/74 92 Nasal Cannula 2 PG Care Time/CCT Total # of Minutes Spent Total Time Spent with Patient: Total time spent is greater than 50% in coordination of care (as documented) at patient's floor/unit and/or counseling patient: Coding Level of Care Code 17901 SUB INP/OBS CARE 3/50MIN Diagnoses Refractory angina pectoris I20.2 NSTEMI (non-ST elevated myocardial infarction) I21.4 Coronary artery disease I25.10 Hypertension I10 Hypertension type: unspecified Hyperlipidemia E78.5 (4) Hypertension Hypertension type: unspecified Qualified Code(s): I10 - Essential (primary) hypertension
[2022-12-10] MEDS ORDERED: ONDANSETRON 4 MG OD TAB PO PRN (13:48)
[2022-12-10] MEDS ORDERED: FUROSEMIDE 40 MG TAB PO ONE (16:05)
[2022-12-10] MEDS ORDERED: ONDANSETRON 4 MG OD TAB PO STA (16:44)
[2022-12-10] MEDS: NITROGLYCERIN SL 0.4 MG/TAB TAB SL PRN ×2 (16:51→21:43)
[2022-12-10] MEDS ORDERED: SCOPOLAMINE 1 MG TDSY TD SCH (18:30)
[2022-12-10] MEDS ORDERED: METOCLOPRAMIDE HCL INJ 5 MG/ML 2 ML VIAL IV STA (20:46)
--- NOTE | 2022-12-10 21:05 | Communication Note ---
Date of Service: December 10, 2022 I was called to come speak to the patient's family at approximately 2000 hrs. and patient are concerned as they do not feel that the goals of care they however not matching the care they are receiving. They are under the impression that patient is to still get medical care including insulin and diuresis with Lasix with a goal of being discharged home to have some quality of life. Reviewing the palliative note demonstrates that the patient's initially were aiming towards a comfort measures strategy. Discussed the difference between palliative care, hospice, and comfort measures only. It seems that their goals now are to get the patient out of the hospital and attend a play on Sunday and that the patient may pass at home while still receiving medication for chronic medical conditions such as diabetes and heart failure. The is also concerned as patient is vomiting so much that he is not able to take his oral Reglan which is to prevent his nausea given his history of gastroparesis. At this time, I instructed the patient and to have further discussion with palliative medicine about their goals of care because there seems to be some disconnect between the plan and what the patient/ both want. At this time, I added IV Reglan to hopefully improve gastroparesis symptoms so he can take oral doses. If this does not work, I will add IV erythromycin. Patient may also take dissolvable Zofran tablets. If patient becomes more short of breath, will give Lasix as needed if fluid overloaded. We will pass on this information to daytime hospitalist service.
[2022-12-10] MEDS: ATORVASTATIN 40 MG TAB PO SCH (23:18)
[2022-12-11] MEDS: CHECK SCOPOLAMINE PATCH PLACEMENT SCH ×4 (00:30→23:43)
[2022-12-11] MEDS: MoRPHine SULFATE 10 MG/0.5 ML UDP PO PRN (02:26)
[2022-12-11] MEDS: NITROGLYCERIN 2% OINTMENT 30GM TUBE EXT SCH ×3 (04:05→16:00)
[2022-12-11] MEDS: PANTOprazole 40 MG TAB PO SCH (05:58)
--- NOTE | 2022-12-11 08:13 | Hospitalist Progress Note ---
Date of Service December 11, 2022 Assessment & Plan (1) NSTEMI (non-ST elevated myocardial infarction): Plan: Pt is a 67 yo male with PMH CKD3 CABGx4 in 2003, CHF, DM2 with neuropathy, depression, GERD, gastroparesis, HTN HLD Parkinson's, CAD, and JERMAIN here for chest pain. NSTEMI - Hx of 5 previous MIs s/p CABG - EKG showed LBBB; trop peaked @ 900 - Echo showed normal EF, mild LVH, and mild - Cardiology following: Refractory Angina Pectoris/CAD * Optimizing medical management - increased Ranolazine (Ranexa), added Xarelto * Changed Imdur to 120 mg BID, discontinued NTPaste * CAD - not surgically amenable * Angina - possible consideration for LVAD in [place] - Continue Ranexa 1500 mg twice daily - Continue on Xarelto 2.5 mg twice daily - Patient's goal to transition to home * Patient not interested in comfort measures/Hospice at this time * Will work to optimize pain management w/o IV morphine for transition to home * Ativan PRN for anxiety/myoclonus ANJALI on CKD - Cr 3.10 on admission, continues to downtrend, currently 2.20 - Lasix currently held, no current IVF * No active dyspnea, faint RLL crackles, LE edema unchanged * Will continue to follow clinical picture and Cr CHF/hx of CAD - Continue aspirin, plavix - Diuresis as above HTN - Continue isosorbide mononitrate, metoprolol, and ranolazine - Continue holding diltiazem --- BP stable for Imdur dosing increase to BID, continue to follow HLD - Continue atorvastatin GERD, gastroparesis - Continue famotidine, metoclopramide, and protonix DM2 - On currently on 40 units Lantus every morning - Patient wishes to continue DM management * Will adjust management if BSG uncontrolled - May continue to use Dexcom for glucose checks BPH - continue tamsulosin Parkinson's disease - continue ropinirole FEN: Regular Code Status: DNR/DNI VTE ppx: Xarelto 2.5 mg twice daily Dispo: MedSurg, plan to ultimately discharge to home w/o Comfort/Hospice (2) Diabetes: (3) Acid reflux disease: (4) Depression: (5) Benign prostate hyperplasia: (6) Chronic kidney disease: (7) Chronic systolic congestive heart failure: (8) Hyperlipidemia: (9) Hypertension: (10) Parkinsons disease: (11) Arteriosclerotic vascular disease: Admission and Anticipated Discharge Date Admission Date: December 05, 2022 Supervising Physician Co-Signing Physician Notes I personally examined the patient and verified all madsen points of history and exam, discussed case, and agree with decision making with Dr Crockett intermittent angina. discussed goals - he's aware that he has severe unfixable disease but wants to continue treatment for prolonging life vitals noted nad heent nc at mmm breathing unlabored no accessory muscles good effort skin no rashes no pallor or icterus severe cad - med management. appreciate cardiology input. raise nitrates. work towards home. ?can we get O2 for home otherwise as above Subjective 12/11: Patient resting comfortably upon arrival. Patient notes that he continuse to have overnight episodes of angina. He denies any additional concerns, he is not experiencing dyspnea, abdominal pain, nausea, emesis, or bowel/bladder changes. Patient notes that he wishes to go home when he is medically stable, and wants to continue with management of his chronic conditions. Patient is willing to speak with Palliative care team further, but ultimately wishes to avoid comfort care only and Hospice at this time. Physical Exam Physical Exam: Gen: NAD, alert, interactive Neuro: AO x 3, no focal neurologic deficits HEENT: NCAT, supple, no JVD Resp:Non-labored, faint right basilar crackles, otherwise CTAB CV:RRR, normal S1/S2, soft systolic murmur at RUSB Abd: Soft, non-distended, no TTP, normoactive bowels, no masses Extr: 2+ dp bilaterally, trace LE edema Skin: No rashes lesions or erythema Results & Data Results & Data Vital Signs (Past 12 Hours) Vital Signs Pulse BP 12/10/22 23:14 78 151/83 H 12/10/22 21:45 165/97 H Resident Activity Tracking Resident Involvement: Resident Care Provided Care Provided: Adult Hospital Medicine (6) Chronic kidney disease Chronic kidney disease stage: unspecified stage Qualified Code(s): N18.9 - Chronic kidney disease, unspecified (9) Hypertension Hypertension type: unspecified Qualified Code(s): I10 - Essential (primary) hypertension
[2022-12-11] MEDS: ASPIRIN 81 MG ECTAB PO SCH (08:18)
[2022-12-11] MEDS: CLOPIDOGREL BISULFATE 75 MG TAB PO SCH (08:18)
[2022-12-11] MEDS: METOCLOPRAMIDE HCL 10 MG TABLET PO SCH ×3 (08:19→20:43)
[2022-12-11] MEDS: RANOLAZINE 500 MG ER TAB PO SCH ×2 (08:19→20:41)
[2022-12-11] MEDS: ISOSORBIDE MONO EXTENDED REL 60 MG TABCR PO SCH ×2 (08:19→20:44)
[2022-12-11] MEDS: METOPROLOL SUCC 50MG EXT REL TAB PO SCH ×2 (08:19→20:43)
[2022-12-11] MEDS: RIVAROXABAN 2.5 MG TAB PO SCH ×2 (08:20→20:42)
[2022-12-11] MEDS: TAMSULOSIN HCL 0.4 MG CAP PO SCH (08:20)
[2022-12-11] MEDS: LANTUS PER UNIT CHARGE SC SCH (08:29)
[2022-12-11 09:12] LABS: Basophils # (auto) 0.02 K/uL (0-0.2); Basophils % (auto) 0.3 %; Eosinophils % (auto) 1.5 %; Hematocrit (blood only) 32.5 % (42.0-52.0); Hemoglobin 10.8 g/dl (14.0-18.0); Immature Granulocytes % (auto) 1.5 %; Lymphocytes % (auto) 31.9 %; Mean Corpuscular Hemoglobin 30.7 pg (25.0-34.0); Mean Corpuscular Hgb Conc 33.2 g/dL (32.0-36.0); Mean Corpuscular Volume 92.3 fL (80.0-100.0); Mean Platelet Volume 9.3 fL (9.4-12.4); Monocytes % (auto) 12.2 %; Neutrophils # (auto) 3.46 K/uL (1.40-6.50); Neutrophils % (auto) 52.6 %; Platelet Count 123 K/uL (130-400); RDW Coefficient of Variation 13.2 % (11.5-14.5); RDW Standard Deviation 43.9 fL (36.4-46.3); Red Blood Count 3.52 M/uL (4.70-6.10); White Blood Count 6.58 K/ul (4.8-10.8)
[2022-12-11 09:28] LABS: BUN Creatinine Ratio 18.6 (10-20); Calcium 9.4 mg/dl (8.6-10.3); Creatinine Clr Calc Pharmacy 38.2 ml/min; Est GFR (African American) 34.2 ml/min; Est GFR (Non-African American) 29.5 ml/min; Potassium 4.3 mmol/L (3.5-5.1)
[2022-12-11] MEDS: rOPINIRole HCL 0.25 MG TABLET PO SCH ×3 (11:02→20:45)
[2022-12-11] MEDS: FAMOTIDINE 20 MG TAB PO SCH (11:02)
--- NOTE | 2022-12-11 11:31 | Cardiology Progress Note ---
Date of Service December 11, 2022 Assessment & Plan (1) Refractory angina pectoris: Plan: -one episode overnight. -continue metoprolol succinate, isosorbide mononitrate, aspirin, and Plavix. -tolerating increased dose of ranolazine and low-dose Xarelto. -if medical management fails, he might consider discussing an LVAD with Dr. Reddy at [place]. (2) NSTEMI (non-ST elevated myocardial infarction): Plan: -high sensitivity troponin peaked at 902. -medical management as above. (3) Coronary artery disease: Plan: -cardiac catheterization results similar to January 2009. -RIVAS to LAD, SVG to OM1 patent. -SVG to D2, SVG to left PDA occluded. -severe 3 vessel [place] disease. -Dr. Reddy at [place] said no intervention possible. -deemed inoperable in January 2009. (4) Hypertension: Plan: -adequate control on current regimen. (5) Hyperlipidemia: Plan: -continue atorvastatin. Admission and Anticipated Discharge Date Admission Date: December 05, 2022 Subjective The patient is resting comfortably in bed complaints of chest pain or dyspnea. Did have an episode of angina pectoris last evening which resolved with 1 sublingual nitroglycerin. Physical Exam Physical Exam: In general this is a well-developed well-nourished white male in no acute distress. HEENT exam is negative. Neck is supple with full carotid upstrokes. There are no carotid bruits. No JVD. There is no thyromegaly. Cardiovascular exam reveals a regular rhythm with a normal S1-S2. Heart sounds are distant. A 2/6 basal systolic ejection murmurs noted. Chest reveals a well-healed midline scar. Lungs are clear without rales, rhonchi, or wheezes. Abdomen is soft and nontender without bruits. Extremities reveal intact radial artery and posterior tibial pulses bilaterally. There is no peripheral edema. Results & Data Vital Signs (Past 12 Hours) Vital Signs O2 Del Method O2 Flow Rate 12/11/22 07:50 Nasal Cannula 2 PG Care Time/CCT Total # of Minutes Spent Total Time Spent with Patient: Total time spent is greater than 50% in coordination of care (as documented) at patient's floor/unit and/or counseling patient: Coding Level of Care Code 82633 SUB INP/OBS CARE 3/50MIN Diagnoses Refractory angina pectoris I20.2 NSTEMI (non-ST elevated myocardial infarction) I21.4 Coronary artery disease I25.10 Hypertension I10 Hypertension type: unspecified Hyperlipidemia E78.5 (4) Hypertension Hypertension type: unspecified Qualified Code(s): I10 - Essential (primary) hypertension
--- NOTE | 2022-12-11 16:09 | Palliative Care Progress Note ---
Date of Service December 11, 2022 Assessment & Plan (1) Palliative care by specialist: (2) Advanced care planning/counseling discussion: Plan: met with pt and reviewed meds were altered upon transfer this is now corrected they would like home hospice dc. requests over bed table nd lightweight wheelchair (3) Dyspnea and respiratory abnormalities: (4) Refractory angina pectoris: (5) Chest pain due to coronary artery disease: (6) Acute non-ST elevation myocardial infarction (NSTEMI): (7) Uncontrolled type 2 diabetes mellitus with diabetic neuropathy: (8) Nocturnal hypoxemia: (9) Sleep-wake schedule disorder, delayed phase type: (10) Chronic systolic congestive heart failure: (11) Chronic kidney disease: (12) Complex sleep apnea syndrome: (13) Ischemic cardiomyopathy: (14) Peripheral vascular disease: (15) Arteriosclerotic vascular disease: Plan * Home with hospice, CM notified of 's DME requests * for hospice dc: continue routine meds, stop all non comfort and non essential meds such as lipid lowering agents, vitamins etc. * He should stay on Lasix as long as he is able to tolerate * He can be moved to insulin SS - tight control is not needed at this junction * They are hoping to make it to a play on Sunday - one of pt favorites and he notes it is at a local playhouse where his needs can be accommodated/he feels safe attending Thank you for allowing us to participate in the ongoing care of this patient. Please don't hesitate to call or page with any additional concerns. Dr. Umm Garcia DNP Director, Palliative Care Admission and Anticipated Discharge Date Admission Date: December 05, 2022 Subjective feeling ok, mild nausea no chest pain - tolerating NTG paste and prn tabs easily SOB with minnimal exertion eating lunch at time of my visit at bedside. frustrated about some med changes that occurred with transfer Review of Systems Review of Systems: All systems reviewed & are unremarkable except as noted in Subjective Physical Exam Physical Exam: Pt resting in bed, eating lunch, tired appearing pale, sl diaphoretic circumoral cyanosis poor dentition nailbeds dusky AAOx3 peripheral edema+BLE Results & Data Vital Signs (Past 12 Hours) Vital Signs O2 Del Method O2 Flow Rate 12/11/22 07:50 Nasal Cannula 2 Laboratory Results SOCIAL WORK INSTRUCTOR Diagnostic Findings SOCIAL WORK INSTRUCTOR PG Care Time/CCT Total # of Minutes Spent Total Time Spent: 75 Total Time Spent with Patient: Total time spent is greater than 50% in coordination of care (as documented) at patient's floor/unit and/or counseling patient: [place] [address] SUB INP/OBS CARE 3/50MIN Patient Type Established History Comprehensive Exam Comprehensive Medical Decision Making High Complexity Diagnoses Palliative care by specialist Z51.5 Advanced care planning/counseling discussion Z71.89 Dyspnea and respiratory abnormalities R06.00; R06.89 Refractory angina pectoris I20.2 Chest pain due to coronary artery disease I25.119 Acute non-ST elevation myocardial infarction (NSTEMI) I21.4 Uncontrolled type 2 diabetes mellitus with diabetic neuropathy E11.40; E11.65 Nocturnal hypoxemia G47.34 Sleep-wake schedule disorder, delayed phase type G47.21 Chronic systolic congestive heart failure I50.22 Chronic kidney disease N18.9 Chronic kidney disease stage: unspecified stage Complex sleep apnea syndrome G47.31 Ischemic cardiomyopathy I25.5 Peripheral vascular disease I73.9 Arteriosclerotic vascular disease I70.90 (11) Chronic kidney disease Chronic kidney disease stage: unspecified stage Qualified Code(s): N18.9 - Chronic kidney disease, unspecified
--- NOTE | 2022-12-11 19:22 | Billing Data ---
Date of Service December 11, 2022 Coding Level of Care Code 46559 SUB INP/OBS CARE MIN
[2022-12-11] MEDS: ATORVASTATIN 40 MG TAB PO SCH (20:44)
[2022-12-12] MEDS: PANTOprazole 40 MG TAB PO SCH (05:40)
--- NOTE | 2022-12-12 07:07 | Hospitalist Progress Note ---
Date of Service December 12, 2022 Assessment & Plan (1) NSTEMI (non-ST elevated myocardial infarction): Plan: Pt is a 67 yo male with PMH CKD3 CABGx4 in 2003, CHF, DM2 with neuropathy, depression, GERD, gastroparesis, HTN HLD Parkinson's, CAD, and JERMAIN here for chest pain. NSTEMI - Hx of 5 previous MIs s/p CABG - EKG showed LBBB; trop peaked @ 900 - Echo showed normal EF, mild LVH, and mild - Cardiology following: Refractory Angina Pectoris/CAD * Optimizing medical management - increased Ranolazine (Ranexa), added Xarelto * Changed Imdur to 120 mg BID, discontinued NTPaste * CAD - not surgically amenable * Angina - possible consideration for LVAD in [place] - Continue Ranexa 1500 mg twice daily - Continue on Xarelto 2.5 mg twice daily - Patient's goal to transition to home * Patient not interested in comfort measures/Hospice at this time * Will work to optimize pain management w/o IV morphine for transition to home * Ativan PRN for anxiety/myoclonus ANJALI on CKD - Cr 3.10 on admission, continues to downtrend, currently 2.20 - Lasix currently held, no current IVF * No active dyspnea, faint RLL crackles, LE edema unchanged * Will continue to follow clinical picture and Cr CHF/hx of CAD - Continue aspirin, plavix - Diuresis as above HTN - Continue isosorbide mononitrate, metoprolol, and ranolazine - Continue holding diltiazem --- BP stable for Imdur dosing increase to BID, continue to follow HLD - Continue atorvastatin GERD, gastroparesis - Continue famotidine, metoclopramide, and protonix DM2 - On currently on 40 units Lantus every morning - Patient wishes to continue DM management * Will adjust management if BSG uncontrolled - May continue to use Dexcom for glucose checks BPH - continue tamsulosin Parkinson's disease - continue ropinirole FEN: Regular Code Status: DNR/DNI VTE ppx: Xarelto 2.5 mg twice daily Dispo: MedSurg, plan to ultimately discharge to home w/o Comfort/Hospice (2) Diabetes: (3) Acid reflux disease: (4) Depression: (5) Benign prostate hyperplasia: (6) Chronic kidney disease: (7) Chronic systolic congestive heart failure: (8) Hyperlipidemia: (9) Hypertension: (10) Parkinsons disease: (11) Arteriosclerotic vascular disease: Admission and Anticipated Discharge Date Admission Date: December 05, 2022 Subjective 12/11: Patient resting comfortably upon arrival. Patient notes that he continuse to have overnight episodes of angina. He denies any additional concerns, he is not experiencing dyspnea, abdominal pain, nausea, emesis, or bowel/bladder changes. Patient notes that he wishes to go home when he is medically stable, and wants to continue with management of his chronic conditions. Patient is willing to speak with Palliative care team further, but ultimately wishes to av oid comfort care only and Hospice at this time. 12/12: Physical Exam Physical Exam: Gen: NAD, alert, interactive Neuro: AO x 3, no focal neurologic deficits HEENT: NCAT, supple, no JVD Resp:Non-labored, faint right basilar crackles, otherwise CTAB CV:RRR, normal S1/S2, soft systolic murmur at RUSB Abd: Soft, non-distended, no TTP, normoactive bowels, no masses Extr: 2+ dp bilaterally, trace LE edema Skin: No rashes lesions or erythema Results & Data Results & Data Vital Signs (Past 12 Hours) Vital Signs O2 Del Method O2 Flow Rate 12/11/22 22:18 Nasal Cannula 2 Resident Activity Tracking Resident Involvement: Resident Care Provided Care Provided: Adult [facility] (6) Chronic kidney disease Chronic kidney disease stage: unspecified stage Qualified Code(s): N18.9 - Chronic kidney disease, unspecified (9) Hypertension Hypertension type: unspecified Qualified Code(s): I10 - Essential (primary) hypertension
[2022-12-12] MEDS: LANTUS PER UNIT CHARGE SC SCH (09:00)
[2022-12-12] MEDS: rOPINIRole HCL 0.25 MG TABLET PO SCH ×2 (09:02→15:47)
[2022-12-12] MEDS: METOCLOPRAMIDE HCL 10 MG TABLET PO SCH ×2 (09:02→13:22)
[2022-12-12] MEDS: TAMSULOSIN HCL 0.4 MG CAP PO SCH (09:03)
[2022-12-12] MEDS: CLOPIDOGREL BISULFATE 75 MG TAB PO SCH (09:03)
[2022-12-12] MEDS: RANOLAZINE 500 MG ER TAB PO SCH (09:04)
[2022-12-12] MEDS: ASPIRIN 81 MG ECTAB PO SCH (09:05)
[2022-12-12] MEDS: RIVAROXABAN 2.5 MG TAB PO SCH (09:05)
[2022-12-12] MEDS: CHECK SCOPOLAMINE PATCH PLACEMENT SCH ×2 (09:06→16:21)
[2022-12-12] MEDS: FAMOTIDINE 20 MG TAB PO SCH (09:10)
[2022-12-12] MEDS: ISOSORBIDE MONO EXTENDED REL 60 MG TABCR PO SCH (10:55)
[2022-12-12] MEDS: METOPROLOL SUCC 50MG EXT REL TAB PO SCH (10:55)
--- NOTE | 2022-12-12 12:41 | Discharge Summary ---
Date of Service December 12, 2022 Admission HPI Per Admitting Provider 67yo Male with PMH CKD3 CABGx4 in 2003, CHF, DM2 with neuropathy, depression GERD gastroparesis, HTN HLD Parkinson's, CAD JERMAIN here for chest pain. Patient states he has been having chest pain all weekend, he would take nitroglycerin and his chest pain would improve. Yesterday he was walking to the bathroom at 1pm developed chest pain, took nitroglycerin at 2pm, chest pain resolved. In evening 11pm he was eating crackers and cheese developed chest pain again, took nitroglycerin at 12:15 and again at 12:30 however his symptoms did not improve, called EMS. In EMS he received additional 3 doses nitroglycerin and 324mg apirin, concern for ST elevation in right leads noted. In ED received nitropaste and fentanyl, patient's chest pain improved after these medications however was present later on exam. Patient describes mild left shoulder pain as well, denies any SOB fever nausea abd pain. EKG in ED at 1:31 noted LBBB present in prior EKG from 11/18/22. Repeat EKG at 4:01 again noted LBBB with more pronounced ST changes in leads II, AVL, V4, V5, V6, V1. Reviewed EKG using Sgarbossa criteria did not indicate acute AL in presence of LBBB. Patient was started on Heparin drip. Patient states over the last week he has had increased travel and stress, has attended 2 funerals neighbor and cousin, eaten out more often, unable to watch sodium intake. Per his abd is more distended they were concerned for constipation so she gave him ducolax, he had a BM, his abd became less distended. notes patient's legs have become more swollen since coming to the ED. Patient is in charge of his own medication which he takes regularly. Admission Exam Per Admitting Provider Constitutional: well developed, well nourished, cooperative and comfortable Eyes: PERRL, conjunctivae normal, anicteric sclerae ENMT: external ear and nose normal, oropharynx normal Neck: trachea midline, no thyromegaly Respiratory: normal respiratory effort, lungs clear to auscultation Cardiovascular: Rate/Rhythm: regular rate and regular rhythm Extremities: + edema (b/l LE) Gastrointestinal (Abdomen): Inspection/Auscultation: + abdomen distended (mild) Percussion/Palpation: abdomen soft; abdomen nontender Skin: no rashes, warm and dry Principal Diagnosis Refractory Angina CAD Discharge Exam Gen: NAD, alert, interactive Neuro:AO x 3, no focal neurologic deficits HEENT: NCAT, supple, no JVD Resp:Non-labored, faint right basilar crackles, otherwise CTAB CV:RRR, normal S1/S2, soft systolic murmur at RUSB Abd: Soft, non-distended, no TTP, normoactive bowels, no masses Extr: 2+ dp bilaterally, trace LE edema Skin: No rashes lesions or erythema Discharge Data Allergies Allergy/AdvReac Type Severity Reaction Status Date / Time glipizide Allergy Severe Heart Verified 12/05/22 11:19 Palpatations. nabumetone AdvReac Severe "had drug Verified 12/05/22 11:19 intereaction with this" simvastatin AdvReac Mild weakness Verified 12/05/22 11:19 sertraline AdvReac Verified 12/05/22 11:19 Consultations 12/05/22 03:50 ED Decision to Admit Stat 12/05/22 05:37 Consult Cardiology Routine 12/08/22 07:18 Consult Cardiology Routine 12/08/22 13:40 Consult Palliative Care Routine Procedures Performed Operation Date: 12/05/22 11:00 Actual Procedures p Cath, Cors with Grafts (no LV) - Alok Miller MD, PhD s Cineradiography w/Routine Exam - Alok Miller MD, PhD Ordered Studies 12/05/22 10:12 CL Cath Imgs for PACS use only Stat Hospital Course (1) NSTEMI (non-ST elevated myocardial infarction): (2) Diabetes: (3) Acid reflux disease: (4) Depression: (5) Benign prostate hyperplasia: (6) Chronic kidney disease: (7) Chronic systolic congestive heart failure: (8) Hyperlipidemia: (9) Hypertension: (10) Parkinsons disease: (11) Arteriosclerotic vascular disease: Plan Pt is a 67 yo male with PMH CKD3 CABGx4 in 2003, CHF, DM2 with neuropathy, depression, GERD, gastroparesis, HTN HLD Parkinson's, CAD, and JERMAIN here for chest pain. NSTEMI - Hx of 5 previous MIs s/p CABG - EKG showed LBBB; trop peaked @ 900 - Echo showed normal EF, mild LVH, and mild - Cardiology following: Refractory Angina Pectoris/CAD * Optimizing medical management - increased Ranolazine (Ranexa), added Xarelto * Changed Imdur to 120 mg BID, discontinued NTPaste * CAD - not surgically amenable * Angina - possible consideration for LVAD in [place]- Continue Ranexa 1500 mg twice daily - Continue on Xarelto 2.5 mg twice daily - Patient's goal to transition to home * Will work to optimize pain management w/o IV morphine for transition to home * Ativan PRN for anxiety/myoclonus --- Patient w/o anginal symptoms overnight w/ increased dose of Imdur --- Patient discharging to home with Hospice - medication Rxs sent, Hospice equipment ordered and scheduled for delivery --- Patient requesting discharge to home today ANJALI on CKD - Cr 3.10 on admission, continues to downtrend, currently 2.20 - Lasix currently held, no current IVF * No active dyspnea, faint RLL crackles, LE edema unchanged * Will continue to follow clinical picture and Cr --- No clinical indication for diuresis at this time, recommend future use for symptoms control PRN CHF/hx of CAD - Continue aspirin, plavix - Diuresis as above HTN - Continue isosorbide mononitrate, metoprolol, and ranolazine - Continue holding diltiazem --- BP stable with increased Imdur dosing HLD - Continue atorvastatin GERD, gastroparesis - Continue famotidine, metoclopramide, and protonix DM2 - On 40 units Lantus every morning - Patient wishes to continue DM management * Will adjust management if BSG uncontrolled- May continue to use Dexcom for glucose checks BPH - continue tamsulosin Parkinson's disease - continue ropinirole FEN: Regular Code Status: DNR/DNI VTE ppx: Xarelto 2.5 mg twice daily Dispo:MedSurg, plan to ultimately discharge to home w/o Comfort/Hospice --- Plan to slowly discontinue chronic/preventative medications as outpatinet, patient requesting to transition to home on current medication regimen. Total Time Total Time Spent Total Time Spent (In Minutes): <30 Discharge Plan Discharge Items Patient Disposition: Hospice - Home Reason For Visit: CHEST PAIN Discharge Diagnosis: Retractible Angina/CAD Activity: Per Instructions section Non-emergency contact: Primary Care Provider and Dynamometer Tester Engine Call non-emergency contact if: you have any medication questions and your pain is worsening Follow-up/Referrals: Edu Samaniego, [Primary Care Provider] - Diet: Heart Healthy Addtl Attending Provider Instructions: You came to the hospital for chest pain at rest that was found to be due to decreased oxygen supply to your heart. During your hospital stay some adjustments to your medications were done. We changed your Imdur dosage and frequency to 120mg twice a day. We added ranolazine 500mg to take twice a day. We also started you on a blood thinner Xarelto 2.5mg to take twice a day. If you find you are having chest pain again please take your sublingual nitroglycerin as prescribed. We have also prescribed morphine 5mg to take for chest discomfort as needed up to every 6 hours. If you are having persistent discomfort with chest pain despite nitroglycerin and morphine use, please contact your PCP or cardiology office. Pending Studies at Discharge: No Stand-Alone Forms: My [facility] Medications and DC Order Prescriptions: New isosorbide mononitrate 60 mg Tablet Extended Release 24 Hr 120 mg PO BID 30 Days Qty: 120 0RF ranolazine 500 mg Tablet Extended Release 12 Hr 1,500 mg PO BID 30 Days Qty: 180 0RF Xarelto 2.5 mg Tablet 2.5 mg PO BID 30 Days Qty: 60 0RF morphine concentrate 100 mg/5 mL (20 mg/mL) solution 5 mg PO Q6H PRN (Reason: pain) Qty: 15 0RF Rx Instructions: refractory chest pain lorazepam [Ativan] 1 mg tablet 1 mg PO BID PRN (Reason: anxiety) Qty: 10 0RF Rx Instructions: 0.5 to 1mg bid prn anxiety/insomnia/muscle spasm Continued diltiazem HCl 120 mg capsule,extended release 24hr 240 mg PO QAM Qty: 180 3RF atorvastatin 80 mg tablet 80 mg PO HS Qty: 90 3RF ergocalciferol (vitamin D2) 1,250 mcg (50,000 unit) capsule 1,250 mcg PO .weekly Qty: 24 0RF metoprolol succinate 100 mg tablet extended release 24 hr 100 mg PO BID Qty: 180 3RF furosemide 80 mg tablet 80 mg PO QAM Qty: 90 3RF famotidine 20 mg tablet 20 mg PO BID Qty: 180 3RF tamsulosin 0.4 mg capsule 0.4 mg PO QAM Qty: 90 3RF ropinirole 0.5 mg tablet 0.5 mg PO TID Qty: 270 1RF nitroglycerin 0.4 mg tablet, sublingual 0.4 mg sublingual DIRECTED PRN (Reason: Chest Pain) Qty: 20 5RF Rx Instructions: PLACE ONE TABLET UNDER THE TONGUE EVERY 5 MINUTES FOR UP TO 3 DOSES OVER 15 MINUTES IF NEEDED FOR CHEST PAIN ranolazine 1,000 mg tablet extended release 12 hr 1,000 mg PO Q12H Qty: 180 3RF (DME) OneTouch Verio test strips Strip See Rx Instructions .ROUTE .MEDSUPPLY Qty: 10 Rx Instructions: test 2 times daily (DME) pen needle, diabetic 30 gauge x 1/3" needle See Rx Instructions .ROUTE .MEDSUPPLY Qty: 1 Rx Instructions: use 4 needles daily (DME) Dexcom G6 Sensor Device See Rx Instructions .Route Rx Instructions: As directed (DME) Dexcom G6 Air Conditioning Equipment Mechanic Misc See Rx Instructions .Route Rx Instructions: As directed (DME) Dexcom G6 Transmitter Device See Rx Instructions .Route Rx Instructions: As directed clopidogrel 75 mg tablet 75 mg PO QAM Qty: 90 3RF cyanocobalamin (vitamin B-12) [Vitamin B-12] 1,000 mcg Tablet 1,000 mcg PO QAM aspirin 81 mg Tablet,Delayed Release (Dr/Ec) 81 mg PO QAM ferrous sulfate 325 mg (65 mg iron) Tablet 325 mg PO TIDM calcium carbonate-vitamin D3 [Calcium 600 + D(3)] 600 mg(1,500mg) -400 unit Ta blet 1 tab PO QAM omega 9-jsh-gul-fish oil [Fish Oil] 1,000 mg (120 mg-180 mg) Capsule 1 cap PO BID Centrum Silver Men 300-600-300 mcg Tablet 1 tab PO QAM metoclopramide HCl 10 mg tablet 10 mg PO BID Qty: 60 0RF pantoprazole 40 mg tablet,delayed release (DR/EC) 40 mg PO DAILYBB Rx Instructions: TAKE ONE TABLET BY MOUTH ONCE DAILY, 30 MINUTES BEFORE BREAKFAST. insulin aspart U-100 [Novolog FlexPen U-100 Insulin] 100 unit/mL (3 mL) insulin pen 12 unit subcut TIDM insulin glargine [Lantus Solostar U-100 Insulin] 100 unit/mL (3 mL) insulin pen 40 unit subcut QAM Discontinued isosorbide mononitrate 60 mg tablet extended release 24 hr 180 mg PO QAM Qty: 270 3RF Discharge Orders: Discharge Order (Routine); Ordered 12/12/22 Ordered By: Avery Gomez/Other Patient Handouts: Hospice Managing Pain, Pain Management Opioids Admission Data Admit Date/Time: 12/05/22 03:53 Attending Provider: Tian Christy Admit Provider: Page Morrison Primary Care Provider: Edu Samaniego Other Providers: Aaron Escamilla ; Alma Anders ; Dean Aponte ; Wojciech Yung ; Umm Garcia Other Interventions: Discharge Summary Assessment (RN) Last Done: 12/12/22 16:55 Supervising Physician Co-Signing Physician Notes I personally examined the patient and verified all madsen points of history and exam, discussed case, and agree with decision making with Dr Crockett no angina overnight would like to go home. vitals noted nad heent nc at mmm breathing unlabored no accessory muscles good effort skin no rashes no pallor or icterus severe cad - med management. appreciate cardiology input. raised nitrates. Home today. Otherwise as above otherwise as above Resident Activity Tracking Resident Involvement: Resident Care Provided Care Provided: Adult Hospital Medicine
--- NOTE | 2022-12-12 19:36 | Billing Data ---
Date of Service December 12, 2022 Coding Level of Care Code 74999 IN/OBS DISCH 30 MIN/LESS
== END 2022-12-12 17:30 | disposition hospice, home (50) | DRG 281 ==
LOC: ED 01:27 → 2E 03:53 → SUATTDRO 03:53 → 2E 04:53 → 3E 12-09 14:02
PROC: CLB.CCG (2022-12-05 11:00)